=== PATIENT | female | born 1960 | race Caucasian/White ===

== ENCOUNTER 2017-10-06 18:42 | Emergency (ER) | END 2017-10-07 02:32 | disposition home or self-care (01) ==

== ENCOUNTER 2017-12-29 15:50 | Inpatient (IN) | END 2018-02-25 21:14 | DRG 870 ==

== ENCOUNTER 2018-05-27 22:50 | Inpatient (IN) | END 2018-06-03 18:20 | DRG 187 ==

== ENCOUNTER 2018-06-19 17:50 | Inpatient (IN) | payer OTHER ==
[~2018-06-19] VITALS: Ht 170.2 cm; Wt 116.1 kg
[~2018-06-19 17:50] MED LIST: CLOT15CR62 TOP; FURO-109 PO; FURO-110 PO; HYDR-4011 PO; LACT10SO5 PO; MONT10TA21 PO; PANT40TA3 PO; SACC250C PO; SERT100T PO; SPIR100T PO; ZOLP5TAB PO
[2018-06-19 20:30] VITALS: BP 158/70; PULSE 74; RESP 18
[2018-06-19] MEDS: HYDROCODONE/APAP (5/325) TAB PO PRN (21:55)
[2018-06-19] MEDS ORDERED: LORAZEPAM 0.5 MG TAB PO PRN (22:00)
[2018-06-19] MEDS ORDERED: ALBUTEROL HFA 8 GM INHALER INH PRN (22:00)
[2018-06-19] MEDS ORDERED: NACL 0.9% 3 ML SYG IV SCH (22:00)
[2018-06-19] MEDS ORDERED: ACETAMINOPHEN 325 MG TAB PO PRN (22:00)
[2018-06-19] MEDS: LACTULOSE 30ML CUP PO SCH ×2 (22:00→22:46)
[2018-06-19] MEDS ORDERED: ALBUTEROL/IPRATROPIUM (NEB) 3 ML AMP HHN PRN (22:00)
[2018-06-19] MEDS ORDERED: ONDANSETRON 4 MG INJ IV PRN (22:00)
[2018-06-19] MEDS: ZOLPIDEM 5 MG TAB PO PRN (22:46)
[2018-06-19 23:17] VITALS: Ht 170.2 cm; Wt 116.1 kg
[2018-06-20] VITALS (10 sets, daily range): BP systolic 112–150; BP diastolic 59–83; PULSE 75–85; RESP 18
[2018-06-20] MEDS ORDERED: DEXTROSE 50% 50 ML SYRINGE IV PRN ×2 (02:30)
[2018-06-20] MEDS ORDERED: GLUCOSE GEL 15 GRAM TUBE BUCCAL PRN (02:30)
[2018-06-20] MEDS ORDERED: GLUCAGON 1 MG INJ IM PRN (02:30)
[2018-06-20] MEDS ORDERED: GLUCOSE GEL 15 GRAM TUBE PO PRN ×2 (02:30)
--- NOTE | 2018-06-20 06:16 | HP ---
Date/Time of Note Date/Time of Note DATE: 06/20/18 TIME: 06:06 Assessment/Plan VTE Prophylaxis Pharmacological prophylaxis: heparin Lines/Catheters [facility] Peripheral IV Urinary Cath still in place: No Assessment/Plan Assessment/Plan 1. Shortness of breath, most likely secondary to chronic right-sided pleural effusion, with likely underlying infection -Recent CT here 2 weeks ago showed chest CT shows moderate loculated right pleural effusion with thin enhancement of the pleural lining is concerning for a fibropurulent effusion or empyema from infection as well as consolidation. As a result patient had a thoracentesis with removal of about half a liter of pleural fluid. -Plan is to repeat the chest CT for comparison and then will decide about repeating a thoracentesis -Will be placed on antibiotics -Supplemental oxygen and as needed bronchodilators -Pulmonary consult 2. Liver cirrhosis, with sequela of splenomegaly and portal hypertension -Patient with a history of alcohol abuse, hepatitis C and fatty liver 3. Type 2 diabetes: Insulin while in-house 4. Hypertension: Continue meds. Adjust as needed 5. History of asthma -Supplemental oxygen, with as needed bronchodilators and steroid 6. Possible SUMIT -As needed PPV 7. Morbid obesity: Will discuss about the importance of weight reduction when patient is more awake 8. Mild pancytopenia, secondary to liver cirrhosis -Monitor closely Results 24hrs Laboratory Tests Test 06/19/18 22:55 Bedside Glucose 172 HPI/ROS Admit Date/Time Admit Date/Time Jun 19, 2018 at 19:49 Hx of Present Illness This is a 58-year-old morbidly obese female with a history of asthma, type 2 diabetes, hypertension, hep C, EtOH, fatty liver, cirrhosis, chronic right-sided pleural effusion who initially presented on outside hospital complaining of shortness of breath, generalized weakness and cough. Patient is currently lethargic/sleepy and as such not much information was obtained from the patient except confirming her symptoms. She was admitted here 2 weeks ago with similar symptoms. At that time, chest CT shows moderate loculated right pleural effusion with thin enhancement of the pleural lining is concerning for a fibropurulent effusion or empyema from infection as well as consolidations. She underwent thoracentesis with removal of almost half a liter of fluid. At the outside facility chest x-ray was done which shows right-sided pleural effusion and right lower lobe infiltrate. She was transferred to [facility] for insurance reasons. She had an initial blood pressure of 189/90. Lab shows a WBC of 3.4, hemoglobin 11.3, platelets 76, sodium 132, glucose 319 and a lipase of 86, which is considered abnormal. PMH/Family/Social Past Medical History Medical History: other (See HPI) Medications Current Medications IV Flush (NS 3 ml) 3 ml PER PROTOCOL IV ; Start 06/19/18 at 22:00 Lorazepam (Ativan) 0.5 mg Q8H PRN PO ANXIETY; Start 06/19/18 at 22:00 Ondansetron HCl (Zofran Inj) 4 mg Q6H PRN IV NAUSEA AND/OR VOMITING; Start 06/19/18 at 22:00 Acetaminophen (Tylenol Tab) 650 mg Q6H PRN PO PAIN LEVEL 1-3 OR FEVER; Start 06/19/18 at 22:00 Albuterol/ Ipratropium (Duoneb) 3 ml Q2H RESP THERAPY PRN HHN SHORTNESS OF BREATH; Start 06/19/18 at 22:00 Furosemide (Lasix) 40 mg DAILY PO ; Start 06/20/18 at 09:00 Acetaminophen/ Hydrocodone Bitart ([place] (5/325)) 1 tab Q6H PRN PO PAIN LEVEL 1-10 Last administered on 06/19/18at 21:55; Admin Dose 1 TAB; Start 06/19/18 at 22:00 Lactulose (Enulose) 10 gm BID PO ; Start 06/19/18 at 22:00 Montelukast Sodium (Singulair) 10 mg QHS PO ; Start 06/20/18 at 21:00 Pantoprazole (Protonix Tab) 40 mg DAILY@0600 PO ; Start 06/20/18 at 06:00 Saccharomyces Boulardii (Florastor) 250 mg DAILY PO ; Start 06/20/18 at 09:00 Sertraline HCl (Zoloft) 100 mg DAILY PO ; Start 06/20/18 at 09:00 Spironolactone (Aldactone) 100 mg DAILY PO ; Start 06/20/18 at 09:00 Zolpidem Tartrate (Ambien) 5 mg QHS PRN PO INSOMNIA Last administered on 06/19/18 at 22:46; Admin Dose 5 MG; Start 06/19/18 at 22:00 Albuterol (Ventolin Hfa) 2 puff Q6H RESP THERAPY PRN INH WHEEZING; Start 06/19 at 22:00 Fluticasone/ Vilanterol (Breo Ellipta 200-25 Mcg Inh) 1 inh DAILY INH ; Start 06/20/18 at 09:00 Hydroxyzine HCl (Atarax) 10 mg Q6H PRN PO ITCHING; Start 06/19/18 at 22:30 Magnesium Oxide (Mag-Ox 400) 400 mg BID PO ; Start 06/20/18 at 09:00 Nicotine (Nicoderm 14 Mg/ 24hr) 1 patch DAILY TRANSDERM ; Start 06/20/18 at 09:00 Diagnostic Test (Pha) (Accu-Chek) 1 ea 02 XX ; Start 06/21/18 at 02:00 Insulin Aspart (Novolog Insulin Pen) NOVOLOG *MILD* ALGORITHM WITH MEALS BEDTIME SC ; Start 06/20/18 at 07:55 Miscellaneous Information 1 ea NOTE XX ; Start 06/20/18 at 02:30 Glucose (Glutose) 15 gm Q15M PRN PO DECREASED GLUCOSE; Start 06/20/18 at 02:30 Glucose (Glutose) 22.5 gm Q15M PRN PO DECREASED GLUCOSE; Start 06/20/18 at 02:30 Dextrose (D50w Syringe) 25 ml Q15M PRN IV DECREASED GLUCOSE; Start 06/20/18 at 02:30 Dextrose (D50w Syringe) 50 ml Q15M PRN IV DECREASED GLUCOSE; Start 06/20/18 at 02:30 Glucagon (Glucagen) 1 mg Q15M PRN IM DECREASED GLUCOSE; Start 06/20/18 at 02:30 Glucose (Glutose) 15 gm Q15M PRN BUCCAL DECREASED GLUCOSE; Start 06/20/18 at 02:30 Coded Allergies: vancomycin (Verified Allergy, Intermediate, 05/27/18) PER REPORT ibuprofen (Verified Adverse Reaction, Mild, SICK TO HER STOMACH, 05/27/18) Past Surgical History Past Surgical Hx: other (See HPI) Family History Significant Family History: no pertinent family hx Social History Alcohol Use: other (History of alcohol abuse) Smoking Status: Former smoker Drug Use: other (Unknown) Exam/Review of Systems Vital Signs Vitals Vital Signs Date Temp Pulse Resp B/P (MAP) Pulse Ox O2 O2 Flow FiO2 Time Delivery Rate 06/20/18 80 04:00 06/20/18 98.3 18 124/65 94 04:00 (84) Intake and Output 06/19/18 06/19/18 06/20/18 1515:00 23:00 07:00 IntakeIntake Total 118 ml 236 ml BalanceBalance 118 ml 236 ml Exam Constitutional: other (Sleepy/lethargic, somehow arousable and answering questions.) Head: normocephalic, atraumatic Eyes: PERRL Respiratory: diminished breath sounds Cardiovascular: regular rate and rhythm, nl pulses Gastrointestinal: soft, other (Obese) Extremities: normal pulses KALYAN MERRILL MD Jun 20, 2018 06:16
[2018-06-20] MEDS: PANTOPRAZOLE (EC) 40 MG TAB PO SCH (06:18)
[2018-06-20] MEDS: INSULIN ASPART [NOVOLOG] 3 ML PEN SC SCH ×4 (08:07→21:37)
[2018-06-20] MEDS: FLUTICASONE/VILANTEROL 200-25 INH DEVICE INH SCH (08:44)
[2018-06-20] MEDS: SPIRONOLACTONE 50 MG TAB PO SCH (08:46)
[2018-06-20] MEDS: FUROSEMIDE 40 MG TAB PO SCH (08:46)
[2018-06-20] MEDS: SACCHAROMYCES BOULARDII 250 MG CAP PO SCH (08:46)
[2018-06-20] MEDS: MAGNESIUM OXIDE 400 MG TAB PO SCH ×2 (08:46→21:20)
[2018-06-20] MEDS: SERTRALINE 100 MG TAB PO SCH (08:46)
[2018-06-20] MEDS: NICOTINE (14 MG/24 HR) PATCH TRANSDERM SCH (08:47)
[2018-06-20] MEDS: LACTULOSE 30ML CUP PO SCH ×2 (08:49→21:20)
[2018-06-20] MEDS ORDERED: BUDESONIDE (NEB) 0.25 MG/2 ML AMP INH ONE (09:00)
--- NOTE | 2018-06-20 15:24 | PN ---
Date/Time of Note Date/Time of Note DATE: 06/20/18 TIME: 15:21 Assessment/Plan VTE Prophylaxis Risk score (from [facility])>0 risk: 2 SCD applied (from [facility]): Yes Pharmacological prophylaxis: NA/contraindicated Pharm contraindication: liver dx Lines/Catheters IV C[facility] Type (from [facility] [place] Urinary Cath still in place: No Assessment/Plan Hospital Course 1. Acute respiratory distress secondary to hepatic hydrothorax Thoracentesis Empiric antibiotics Continue diuretics Supplemental oxygen 2. Liver cirrhosis, with sequela of splenomegaly and portal hypertension Patient with a history of alcohol abuse, hepatitis C and fatty liver 3. Type 2 diabetes: Insulin while in-house 4. Hypertension Adjust as needed 5. History of asthma Supplemental oxygen, with as needed bronchodilators and steroid 6. Possible SUMIT As needed PPV 7. Morbid obesity Lifestyle changes 8. Mild pancytopenia, secondary to liver cirrhosis Monitor DC planning: Possible DC back to residential tomorrow Result Diagram: 06/20/18 0620 06/20/18 0620 Results 24hrs Laboratory Tests Test 06/19/18 22:55 06/20/18 06:20 06/20/18 07:53 06/20/18 11:45 Bedside Glucose 172 170 235 H White Blood Count 4.2 L Red Blood Count 3.71 L Hemoglobin 11.1 L Hematocrit 33.0 L Mean Corpuscular Volume 88.9 Mean Corpuscular 29.9 Hemoglobin Mean Corpuscular 33.6 Hemoglobin Concent Red Cell Distribution 15.6 H Width Platelet Count 64 #L Mean Platelet Volume 10.2 Immature Granulocytes % 1.200 H Neutrophils % 58.7 Lymphocytes % 28.1 Monocytes % 10.8 Eosinophils % 0.0 Basophils % 1.2 Nucleated Red Blood 0.0 Cells % Immature Granulocytes # 0.050 H Neutrophils # 2.5 Lymphocytes # 1.2 Monocytes # 0.5 Eosinophils # 0.0 Basophils # 0.1 Nucleated Red Blood 0.0 Cells # Sodium Level 137 Potassium Level 4.4 Chloride Level 106 Carbon Dioxide Level 29 Anion Gap 2 L Blood Urea Nitrogen 12 Creatinine 0.56 Est Glomerular Filtrat > 60 Rate mL/min Glucose Level 210 Calcium Level 8.8 Total Bilirubin 0.9 Direct Bilirubin 0.00 Indirect Bilirubin 0.9 Aspartate Amino 79 H Transf (AST/SGOT) Alanine 43 Aminotransferase (ALT/SG PT) Alkaline Phosphatase 164 H Total Protein 7.2 Albumin 2.3 L Globulin 4.90 H Albumin/Globulin Ratio 0.46 Test 06/20/18 12:13 Prothrombin Time 16.3 H Prothrombin Time Ratio 1.3 INR International 1.30 Normalized Ratio Activated 34.3 Partial Thromboplast Time Subjective 24 Hr Interval Summary Respiratory: shortness of breath Exam/Review of Systems Vital Signs Vitals Vital Signs Date Temp Pulse Resp B/P (MAP) Pulse Ox O2 O2 Flow FiO2 Time Delivery Rate 06/20/18 98.0 85 18 112/59 97 Room Air 15:04 (76) 06/20/18 2.0 08:22 Intake and Output 06/19/18 06/19/18 06/20/18 1515:00 23:00 07:00 IntakeIntake Total 118 ml 336 ml BalanceBalance 118 ml 336 ml Exam Constitutional: alert, oriented Respiratory: clear to auscultation Cardiovascular: regular rate and rhythm Gastrointestinal: soft; No distended Musculoskeletal: nl extremities to inspection Medications Medications Current Medications IV Flush (NS 3 ml) 3 ml PER PROTOCOL IV ; Start 06/19/18 at 22:00 Lorazepam (Ativan) 0.5 mg Q8H PRN PO ANXIETY; Start 06/19/18 at 22:00 Ondansetron HCl (Zofran Inj) 4 mg Q6H PRN IV NAUSEA AND/OR VOMITING; Start 06/19/18 at 22:00 Acetaminophen (Tylenol Tab) 650 mg Q6H PRN PO PAIN LEVEL 1-3 OR FEVER; Start 06/19/18 at 22:00 Albuterol/ Ipratropium (Duoneb) 3 ml Q2H RESP THERAPY PRN HHN SHORTNESS OF BREATH; Start 06/19/18 at 22:00 Furosemide (Lasix) 40 mg DAILY PO Last administered on 06/20/18at 08:46; Admin Dose 40 MG; Start 06/20/18 at 09:00 Acetaminophen/ Hydrocodone Bitart ([place] (5/325)) 1 tab Q6H PRN PO PAIN LEVEL 1-10 Last administered on 06/19/18at 21:55; Admin Dose 1 TAB; Start 06/19/18 at 22:00 Lactulose (Enulose) 10 gm BID PO ; Start 06/19/18 at 22:00 Montelukast Sodium (Singulair) 10 mg QHS PO ; Start 06/20/18 at 21:00 Pantoprazole (Protonix Tab) 40 mg DAILY@0600 PO Last administered on 06/20/18 06:18; Admin Dose 40 MG; Start 06/20/18 at 06:00 Saccharomyces Boulardii (Florastor) 250 mg DAILY PO Last administered on 06/20/18 08:46; Admin Dose 250 MG; Start 06/20/18 at 09:00 Sertraline HCl (Zoloft) 100 mg DAILY PO Last administered on 06/20/18 08:46; Admin Dose 100 MG; Start 06/20/18 at 09:00 Spironolactone (Aldactone) 100 mg DAILY PO Last administered on 06/20/18 08:46; Admin Dose 100 MG; Start 06/20/18 at 09:00 Zolpidem Tartrate (Ambien) 5 mg QHS PRN PO INSOMNIA Last administered on 06/19/18 22:46; Admin Dose 5 MG; Start 06/19/18 at 22:00 Albuterol (Ventolin Hfa) 2 puff Q6H RESP THERAPY PRN INH WHEEZING; Start 06/19/18 at 22:00 Fluticasone/ Vilanterol (Breo Ellipta 200-25 Mcg Inh) 1 inh DAILY INH Last administered on 06/20/18 08:44; Admin Dose 1 INH; Start 06/20/18 at 09:00 Hydroxyzine HCl (Atarax) 10 mg Q6H PRN PO ITCHING; Start 06/19/18 at 22:30 Magnesium Oxide (Mag-Ox 400) 400 mg BID PO Last administered on 06/20/18 08:46; Admin Dose 400 MG; Start 06/20/18 at 09:00 Nicotine (Nicoderm 14 Mg/ 24hr) 1 patch DAILY TRANSDERM Last administered on 06/20/18 08:47; Admin Dose 1 PATCH; Start 06/20/18 at 09:00 Diagnostic Test (Pha) (Accu-Chek) 1 ea 02 XX ; Start 06/21/18 at 02:00 Insulin Aspart (Novolog Insulin Pen) NOVOLOG *MILD* ALGORITHM WITH MEALS BEDTIME SC Last administered on 06/20/18 12:15; Admin Dose 3 UNIT; Start at 07:55 Miscellaneous Information 1 ea NOTE XX ; Start 06/20/18 at 02:30 Glucose (Glutose) 15 gm Q15M PRN PO DECREASED GLUCOSE; Start 06/20/18 at 02:30 Glucose (Glutose) 22.5 gm Q15M PRN PO DECREASED GLUCOSE; Start 06/20/18 at 02:30 Dextrose (D50w Syringe) 25 ml Q15M PRN IV DECREASED GLUCOSE; Start 06/20/18 at 02:30 Dextrose (D50w Syringe) 50 ml Q15M PRN IV DECREASED GLUCOSE; Start 06/20/18 at 02:30 Glucagon (Glucagen) 1 mg Q15M PRN IM DECREASED GLUCOSE; Start 06/20/18 at 02:30 Glucose (Glutose) 15 gm Q15M PRN BUCCAL DECREASED GLUCOSE; Start 06/20/18 at 02:30 LIZ ALFRED Jun 20, 2018 15:24
[2018-06-20] MEDS ORDERED: MONTELUKAST 10 MG TAB PO SCH (21:00)
[2018-06-20] MEDS: hydrOXYzine HCL 10 MG TAB PO PRN (21:30)
[2018-06-20] MEDS: ZOLPIDEM 5 MG TAB PO PRN (21:30)
[2018-06-21] VITALS (10 sets, daily range): BP systolic 110–126; BP diastolic 53–63; PULSE 74–83; RESP 14–18
[2018-06-21] MEDS ORDERED: ACCU-CHEK XX SCH (02:00)
[2018-06-21] MEDS: HYDROCODONE/APAP (5/325) TAB PO PRN (06:16)
[2018-06-21] MEDS: PANTOPRAZOLE (EC) 40 MG TAB PO SCH (06:16)
[2018-06-21] MEDS: LACTULOSE 30ML CUP PO SCH (09:00)
[2018-06-21] MEDS ORDERED: MAGN400T27 PO (09:22)
[2018-06-21] MEDS: SPIRONOLACTONE 50 MG TAB PO SCH (09:30)
[2018-06-21] MEDS: SACCHAROMYCES BOULARDII 250 MG CAP PO SCH (09:30)
[2018-06-21] MEDS: SERTRALINE 100 MG TAB PO SCH (09:30)
[2018-06-21] MEDS ORDERED: MAGNESIUM SULFATE 2 GM/50 ML 50 ML IVPB ONE (09:30)
[2018-06-21] MEDS: MAGNESIUM OXIDE 400 MG TAB PO SCH (09:30)
[2018-06-21] MEDS: NICOTINE (14 MG/24 HR) PATCH TRANSDERM SCH (09:30)
[2018-06-21] MEDS ORDERED: MAGNESIUM OXIDE 400 MG TAB PO ONE (09:30)
[2018-06-21] MEDS: FUROSEMIDE 40 MG TAB PO SCH (09:31)
[2018-06-21] MEDS: FLUTICASONE/VILANTEROL 200-25 INH DEVICE INH SCH (09:33)
--- NOTE | 2018-06-21 11:37 | DS ---
Date/Time of Note Date/Time of Note DATE: 06/21/18 TIME: 11:31 Discharge Summary Admission/Discharge Info Admit Date/Time Jun 19, 2018 at 19:49 Discharge Date/Time June 21, 2018 Discharge Diagnosis 1. Acute respiratory distress secondary to anasarca-resolved Ultrasound chest showed only minimal fluid in the right chest and hence was an insufficient amount for thoracentesis Status post empiric antibiotics, no indication for further antibiotics as there is no evidence of pneumonia Continue diuretics No indication for supplemental oxygen 2. Liver cirrhosis secondary to hepatitis C and alcohol abuse with sequela of splenomegaly and portal hypertension Patient with a history of alcohol abuse, hepatitis C and fatty liver Continue diuretics 3. Type 2 diabetes Continue home regimen 4. Hypertension Continue home regimen 5. History of asthma Continue home regimen 6. Pancytopenia secondary to cirrhosis-stable 7. Morbid obesity Lifestyle changes 8. Debility DC back to shelter Patient Condition: Good Hospital Course Patient is a 58-year-old female with a history of cirrhosis secondary to hep atitis C and alcohol abuse, recurrent hepatic hydrothorax status post thoracentesis during recent hospitalization, diabetes, hypertension, debility, obesity, asthma. Patient presents with recurrent respiratory distress thought to be secondary to hepatic hydrothorax. Patient was diuresed and anasarca did improve, ultrasound of the chest showed only minimal fluid and fluid amount was insufficient for a thoracentesis. Patient's respiratory distress resolved and patient no longer required supplemental O2. Patient had no evidence of pneumonia. Patient was stable for DC back to shelter, on the day of discharge patient's vitals, labs and physical exam are stable patient has no acute complaints and questions are answered. Home Meds Active Scripts Magnesium Oxide* (Mag-Oxide*) 400 Mg Tablet, 400 MG PO BID, #60 TAB Prov:LIZ ALFRED 06/21/18 Spironolactone* (Aldactone*) 100 Mg Tablet, 100 MG PO DAILY, #60 TAB Prov:LIZ ALFRED 06/03/18 Furosemide* (Lasix*) 40 Mg Tablet, 40 MG PO DAILY, #60 TAB Prov:ILZ ALFRED 06/03/18 Reported Medications Zolpidem Tartrate* (Ambien*) 5 Mg Tablet, 5 MG PO QHS PRN for INSOMNIA, #30 TAB From [facility] 05/28/18 Saccharomyces Boulardii* (Florastor*) 250 Mg Cap, 250 MG PO DAILY, CAP From [facility] 05/28/18 Lactulose* (Lactulose*) 10 Gm/15 Ml Solution, 10 GM PO BID, ML [facility] 05/28/18 Sertraline Hcl* (Zoloft*) 100 Mg Tablet, 100 MG PO DAILY, #30 TAB from [facility] 05/28/18 Pantoprazole* (Protonix*) 40 Mg Tablet.dr, 40 MG PO DAILY, TAB From [facility] 05/28/18 Betamethasone-Clotrimazole* (Lotrisone*) 15 Gm Cr, 1 APPLIC TOP BID for abd fold, bilateral groin, TUB from [facility] 05/28/18 Hydrocodone/Acetaminophen ([place] 5-325 Tablet) 1 Each Tablet, 1 EACH PO Q6 PRN for prn, TAB FROM [facility] 05/28/18 Montelukast Sodium* (Singulair*) 10 Mg Tablet, 10 MG PO QHS, #30 TAB 12/29/17 Discontinued Scripts Furosemide* (Lasix*) 20 Mg Tablet, 20 MG PO DAILY for 60 Days, #60 TAB Prov:JAZ PERLA MD 05/14/18 Follow-up Plan Follow-up with physicians at the long term facility Primary Care Provider Care Physician No Primary Time spent on discharge: > 30 minutes LIZ ALFRED Jun 21, 2018 11:37
[2018-06-21] MEDS: INSULIN ASPART [NOVOLOG] 3 ML PEN SC SCH ×3 (12:30→18:32)
[2018-06-21] MEDS ORDERED: MUPIROCIN 2% 22 GM OINT TOP SCH (14:00)
[2018-06-21] MEDS: hydrOXYzine HCL 10 MG TAB PO PRN (14:56)
[2018-06-22] MEDS ORDERED: MAGNESIUM OXIDE 400 MG TAB PO SCH (09:00)
[2018-07-26] MEDS ORDERED: GABA100C14 PO (17:05)
[2018-07-26] MEDS ORDERED: HYDR-4011 PO (19:04)
[2018-07-26] MEDS ORDERED: OMEP40CA6 PO (19:04)
[2018-07-28] MEDS ORDERED: MAGN400T27 PO (12:43)
[2018-07-28] MEDS ORDERED: SERT100T PO (12:43)
[2018-07-28] MEDS ORDERED: SPIR100T PO (12:43)
[2018-07-28] MEDS ORDERED: LACT10SO5 PO (12:43)
[2018-07-28] MEDS ORDERED: FURO-109 PO (12:43)
[2018-07-28] MEDS ORDERED: MONT10TA21 PO (12:43)
[2018-07-28] MEDS ORDERED: SACC250C PO (12:43)
[2018-07-28] MEDS ORDERED: PANT40TA3 PO (12:43)
== END 2018-06-21 18:51 | DRG 948 ==
LOC: 2NE 19:49 → 5EC 20:16 → TEL 06-20 02:45
PROVIDERS: ADMIT Internal Medicine; ATTEND Internal Medicine
DX: R60.1 Generalized edema (principal); K76.6 Portal hypertension; Z68.41 Body mass index [BMI] 40.0-44.9, adult; D61.818 Other pancytopenia; R16.1 Splenomegaly, not elsewhere classified; I10 Essential (primary) hypertension; J45.909 Unspecified asthma, uncomplicated; E66.01 Morbid (severe) obesity due to excess calories; B95.62 Methicillin resistant Staphylococcus aureus infection as the cause of diseases classified elsewhere; E11.9 Type 2 diabetes mellitus without complications; B18.2 Chronic viral hepatitis C; K76.0 Fatty (change of) liver, not elsewhere classified; K70.30 Alcoholic cirrhosis of liver without ascites; Z87.891 Personal history of nicotine dependence; R06.03 Acute respiratory distress
CPT/HCPCS: 71045; 76604; 80048; 80053; 82962; 83735; 85025; 85610; 85730; 87081; J1815; J3475

== ENCOUNTER 2018-07-30 16:39 | Emergency (ER) | payer OTHER ==
[~2018-07-30] VITALS: Ht 165.1 cm; Wt 118.2 kg
[~2018-07-30 16:39] MED LIST changes: -FURO-110 PO; +GABA100C14 PO; +MAGN400T27 PO; -ZOLP5TAB PO
[2018-07-30 16:42] VITALS: Ht 165.1 cm; Wt 118.2 kg
[2018-07-30] MEDS ORDERED: morphine 4 MG/ML VIAL IV STA (23:05)
[2018-07-30] MEDS ORDERED: ONDANSETRON 4 MG INJ IV STA (23:05)
[2018-07-30] MEDS ORDERED: morphine 4 MG/ML VIAL IM STA (23:34)
[2018-07-30] MEDS ORDERED: ONDANSETRON 4 MG INJ IM STA (23:34)
[2018-07-31] MEDS ORDERED: TRAM50TA2 PO (05:34)
[2018-07-31] MEDS ORDERED: ADMELOG SUBCUTANE (11:35)
--- NOTE | 2018-07-31 12:22 | EN ---
Date/Time of Note Date/Time of Note DATE: 07/31/18 TIME: 12:15 ER Progress Note This is a 58-year-old female that had presented to the emergency department and evaluated by the ER physician Dr. Bustillo. The patient had subsequently been discharged after a workup for epigastric pain. The patient had an ultrasound that was performed and showed cholelithiasis without cholecystitis. This had been ordered and reviewed by the previous ER physician as well as myself. Dr. Bustillo is also written a prescription for tramadol for the patient for analgesic control.. However at the time of discharge the patient stated that she did not have a place to live and she is currently homeless. Therefore at this time a social work consult was obtained. Her social media designer kindly came to the bedside and evaluated the patient. She had a significant workup and hospitalization subsequently discharged July 28, 2018, 3 days prior to arrival. We are currently working on placement to send the patient to a recuperative care facility. The patient has home medications that she was discharged with on July 28, 2018. The patient has her prescriptions in hand which include [place], gabapentin, montelukast, Protonix, Zoloft, lactulose, Florastor, Lasix, Spironolactone and magnesium oxide. I have currently reviewed the prescriptions that were written by the discharge physician Dr. Miranda. She has not filled these prescriptions. The patient also indicates that she has a history of diabetes. There did not appear to be a prescription for insulin. The patient's hemoglobin A1c upon review of her ancillary laboratory work from previous admission was elevated at 8.1%. When I spoke with the patient at bedside the patient stated she does not know the antidiabetic medication she takes. The patient did state that she was previously at [facility] before this hospitalization and was taking insulin. Again the patient has no recollection of the dose of the medication or the type of insulin that she took. Therefore at this time I felt the patient required a diabetic counselor to come to bedside and evaluate the best choice of antidiabetic medication for this patient prior to discharge. The child was seen by the hospice educator. She made documentation that the patient was very somnolent. However she was able to speak with the patient and did state that she will follow-up with the patient tomorrow at their facility to discuss diet management. Therefore the patient will have very good outpatient follow-up with free diabetic education classes that have been offered to her. RAFAEL ALONZO MD Jul 31, 2018 12:22
--- NOTE | 2018-07-31 14:55 | QN ---
Documentation Comment This patient was signed out to me at [address] Martinez pending discharge planning with social work and consultation with the diabetes coordinator for outpatient prescription recommendations. The patient will be provided a prescription for Januvia 100 mg daily Jardiance 10 mg daily in accordance with the diabetic counselor's recommendations. The patient understands the need to follow-up in the next 1-3 days with a primary care physician for close erin gement of her diabetes. Please see Dr. Martinez's note for further detail of the patient's ED course. Please see the social work note for details on discharge planning. BENNY KNIGHT MD Jul 31, 2018 14:55
[2018-07-31] MEDS ORDERED: EMPA10TA PO (14:57)
[2018-07-31] MEDS ORDERED: SITA100T11 PO (14:57)
[2018-07-31 15:06] VITALS: BP 148/88; PULSE 77; RESP 18
== END 2018-07-31 14:08 | disposition home or self-care (01) ==
LOC: E/R 16:39
DX: K80.20 Calculus of gallbladder without cholecystitis without obstruction (principal); E11.9 Type 2 diabetes mellitus without complications
CPT/HCPCS: 36415; 71045; 76705; 80053; 83690; 84484; 85025; 85610; 85730; 93005; 96372; J2270; J2405; Z7502

== ENCOUNTER 2018-08-20 22:15 | Inpatient (IN) | payer OTHER ==
[~2018-08-20] VITALS: Ht 170.2 cm; Wt 124.9 kg
[~2018-08-20 22:15] MED LIST changes: +ADMELOG SUBCUTANE; -CLOT15CR62 TOP; +EMPA10TA PO; -LACT10SO5 PO; -SACC250C PO; +SITA100T11 PO
[2018-08-20] MEDS ORDERED: morphine 4 MG/ML VIAL IV STA (22:38)
[2018-08-20] MEDS ORDERED: SOD CHLORIDE 0.9% 500 ML IV STA (22:38)
[2018-08-20] MEDS ORDERED: ONDANSETRON 4 MG INJ IV STA (22:38)
[2018-08-20] MEDS ORDERED: PIPER-TAZO 3.375 GM IV (PMX) 100 ML IVPB STA (22:38)
[2018-08-21] MEDS ORDERED: ACETAMINOPHEN 325 MG TAB PO PRN (01:30)
[2018-08-21] MEDS ORDERED: NACL 0.9% 3 ML SYG IV SCH (01:30)
[2018-08-21] MEDS ORDERED: DOCUSATE SODIUM 100 MG CAP PO PRN (01:30)
[2018-08-21] MEDS ORDERED: ONDANSETRON 4 MG INJ IV PRN (01:30)
[2018-08-21] MEDS ORDERED: BISACODYL (EC) 5 MG TAB PO PRN (01:30)
[2018-08-21 02:00] VITALS: Ht 170.2 cm; Wt 124.9 kg
--- NOTE | 2018-08-21 02:26 | ERD ---
ER Documentation Chief Complaint Chief Complaint fell when mis-stepped out of vehicle, Rt ankle pain, chronic low back pain HPI This is a 58-year-old female who complains of ankle pain after miss stepping out of her vehicle. She also says that her ankles been swollen along with up to her mid calf for the past few days. No fevers no chills. No nausea no vomiting. No other current complaints. Pain mild to moderate in intensity with no exacerbating or alleviating factors. ROS All systems reviewed and are negative except as per history of present illness. Medications Home Meds Active Scripts Empagliflozin (Jardiance) 10 Mg Tablet, 10 MG PO DAILY for 15 Days, TAB Prov:BENNY KNIGHT MD 07/31/18 Sitagliptin* (Januvia*) 100 Mg Tablet, 100 MG PO DAILY, #15 TAB Prov:BENNY KNIGHT MD 07/31/18 Magnesium Oxide* (Mag-Oxide*) 400 Mg Tablet, 400 MG PO BID, #60 TAB Prov:JAMARI ALVARADO S. 07/28/18 Spironolactone* (Aldactone*) 100 Mg Tablet, 100 MG PO DAILY, #60 TAB 3 Refills Prov:JAMARI ALVARADO S. 07/28/18 Furosemide* (Lasix*) 40 Mg Tablet, 40 MG PO DAILY, #30 TAB 3 Refills Prov:JAMARI ALVARADO S. 07/28/18 Sertraline Hcl* (Zoloft*) 100 Mg Tablet, 100 MG PO DAILY, #30 TAB 1 Refill from [facility] Prov:JAMARI ALVARADO S. 07/28/18 Pantoprazole* (Protonix*) 40 Mg Tablet.dr, 40 MG PO DAILY, #30 TAB 1 Refill From [facility] Prov:JAMARI ALVARADO S. 07/28/18 Montelukast Sodium* (Singulair*) 10 Mg Tablet, 10 MG PO QHS, #30 TAB 3 Refills Prov:JAMARI ALVARADO S. 07/28/18 Reported Medications [Admelog] No Conflict Check, 1-15 UNITS SUBCUTANE AC MEALS 07/31/18 Gabapentin* (Gabapentin*) 100 Mg Capsule, 100 MG PO DAILY, #90 CAP 07/26/18 Hydrocodone/Acetaminophen ([place] 5-325 Tablet) 1 Each Tablet, 1 EACH PO Q6 PRN for prn, TAB FROM [facility] 05/28/18 Allergies Allergies: Coded Allergies: vancomycin (Unverified Allergy, Intermediate, 07/31/18) PER REPORT ibuprofen (Unverified Adverse Reaction, Mild, SICK TO HER STOMACH, 07/31/18) PMhx/Soc History of Surgery: Yes (Hysterectomy 1981, L ankle surgery 1989) Anesthesia Reaction: No Hx Neurological Disorder: No Hx Respiratory Disorders: Yes (COPD, asthma) Hx Cardiac Disorders: Yes (CHF, HTN) Hx Psychiatric Problems: Yes (Depression) Hx Miscellaneous Medical Probl: Yes (cirrhosis, diastolic CHF, depression, R foot drop ) Hx Alcohol Use: Yes Hx Substance Use: Yes (meth, marijuaa) Hx Tobacco Use: Yes (2017) Smoking Status: Current every day smoker Physical Exam Vitals Vital Signs Date Temp Pulse Resp B/P (MAP) Pulse Ox O2 O2 Flow FiO2 Time Delivery Rate 08/20/18 98.0 97 16 139/74 96 Room Air 23:40 (95) 08/20/18 98.0 96 22 143/125 98 22:33 (131) Physical Exam Const: No acute distress Head: Atraumatic Eyes: Normal Conjunctiva ENT: Normal External Ears, Nose and Mouth. Neck: Full range of motion. No meningismus. Resp: Clear to auscultation bilaterally Cardio: Regular rate and rhythm, no murmurs Abd: Soft, non tender, non distended. Normal bowel sounds Skin: Erythema and induration noted to the midcalf bilaterally. No fluctuance noted. Normal pulses. Back: No midline or flank tenderness Ext: No cyanosis, or edema Neur: Awake and alert Psych: Normal Mood and Affect Result Diagram: 08/20/18 2313 08/20/18 2313 Results 24 hrs Laboratory Tests Test 08/20/18 23:13 White Blood Count 5.5 10^3/ul Red Blood Count 4.27 10^6/ul Hemoglobin 12.1 g/dl Hematocrit 38.1 % Mean Corpuscular Volume 89.2 fl Mean Corpuscular Hemoglobin 28.3 pg Mean Corpuscular Hemoglobin Concent 31.8 g/dl Red Cell Distribution Width 16.3 % Platelet Count 91 10^3/UL Mean Platelet Volume 10.3 fl Immature Granulocytes % 0.900 % Neutrophils % 68.5 % Lymphocytes % 19.3 % Monocytes % 10.2 % Eosinophils % 0.0 % Basophils % 1.1 % Nucleated Red Blood Cells % 0.0 /100WBC Immature Granulocytes # 0.050 10^3/ul Neutrophils # 3.8 10^3/ul Lymphocytes # 1.1 10^3/ul Monocytes # 0.6 10^3/ul Eosinophils # 0.0 10^3/ul Basophils # 0.1 10^3/ul Nucleated Red Blood Cells # 0.0 10^3/ul Prothrombin Time 15.2 Sec Prothrombin Time Ratio 1.2 INR International Normalized Ratio 1.19 Activated Partial Thromboplast Time 31.7 Sec Sodium Level 138 mmol/L Potassium Level 3.9 mmol/L Chloride Level 105 mmol/L Carbon Dioxide Level 25 mmol/L Anion Gap 8 Blood Urea Nitrogen 9 mg/dl Creatinine 0.55 mg/dl Est Glomerular Filtrat Rate mL/min > 60 mL/min Glucose Level 189 mg/dl Calcium Level 8.7 mg/dl Total Bilirubin 2.2 mg/dl Direct Bilirubin 0.00 mg/dl Indirect Bilirubin 2.2 mg/dl Aspartate Amino Transf (AST/SGOT) 80 IU/L Alanine Aminotransferase (ALT/SGPT) 32 IU/L Alkaline Phosphatase 189 IU/L Total Protein 8.6 g/dl Albumin 2.9 g/dl Globulin 5.70 g/dl Albumin/Globulin Ratio 0.50 Lipase 143 U/L Current Medications Medications Dose Sig/Shikha Start Time Status Last (Trade) Ordered Route PRN Stop Time Admin Dose Reason Admin Sodium 500 ml @ Q1H STAT 08/20/18 DC 08/20/18 Chloride 500 mls/hr IV 22:38 08/20/18 23:28 23:37 Morphine 4 mg ONCE STAT 08/20/18 DC 08/20/18 Sulfate IV 22:38 08/20/18 23:28 (morphine) 22:39 Ondansetron 4 mg ONCE STAT 08/20/18 DC 08/20/18 HCl (Zofran IV 22:38 08/20/18 23:28 Inj) 22:39 Piperacillin 100 ml @ ONCE STAT 08/20/18 DC 08/20/18 Sod/ 200 mls/hr IVPB 22:38 08/20/18 23:28 Tazobactam 23:07 Sod Procedures/MDM Medical decision makin-year female who comes in with essentially bilateral lower extremity cellulitis. Started on antibiotics. Cultures drawn first. Patient to be admitted to [facility] to Dr. García is on-call. X-ray Ankle 3V Interpreted by me: Bones: [No fracture] Joints: No dislocation Departure Diagnosis: Primary Impression: Ankle pain Chronicity: unspecified Laterality: unspecified laterality Qualified Codes: M25.579 - Pain in unspecified ankle and joints of unspecified foot Additional Impression: Cellulitis Site of cellulitis: unspecified site Qualified Codes: L03.90 - Cellulitis, unspecified Condition: Stable KALYAN HUTCHINS Aug 21, 2018 02:26
[2018-08-21] MEDS ORDERED: FUROSEMIDE 40 MG INJ IV ONE ×2 (03:30→04:00)
[2018-08-21] MEDS ORDERED: FUROSEMIDE 40 MG INJ IM ONE (03:30)
--- NOTE | 2018-08-21 03:33 | HP ---
Date/Time of Note Date/Time of Note DATE: 08/21/18 TIME: 03:33 Assessment/Plan VTE Prophylaxis SCD applied (from Nsg): Yes Pharmacological prophylaxis: NA/contraindicated Pharm contraindication: low risk/ambulating Lines/Catheters IV Catheter Type (from Nrsg): Saline Lock Assessment/Plan Hospital Course This is a 58-year-old female being admitted to the [facility] floor for: #1 acute chronic encephalopathy: Likely multifactorial secondary to underlying urinary tract infection, possible hyperammonemia, versus other. Will check a CT scan of the head without contrast to rule out any acute intracranial pathology. Will check an ammonia level. Ceftriaxone 1 g every 24 hours underlying urinary tract infection. Lactulose #2 urinary tract infection: Ceftriaxone 1 g every 24 hours, will check a urine culture. #3 abnormal chest x-ray: Patient has a history of pleural effusion/empyema. Will obtain a CT scan of the chest to further evaluate. #4 Dehydration: Secondary possibly to diuretics, underlying urinary tract infection, poor p.o. intake. While patient does appear to be volume overloaded she does appear to be intravascularly depleted. Albumin 25% x2. #5 cirrhosis: Secondary to hepatitis C and alcohol. Will check an ammonia level. Resume home blood pressure medications and diuretics when clinically indicated. Lactulose #6 diabetes mellitus: We will check hemoglobin A1c, will hold home oral medications. Mild insulin sliding scale. #7. Right ankle pain: X-ray is negative for any acute fractures. There is some soft tissue swelling. However given that the patient is afebrile and normal white blood cell count I do not suspect any underlying pneumonia. Will treat with Lasix when indicated for swelling. #8 Homelessness: Consult social work. #9 DVT GI prophylaxis: SCDs, no GI prophylaxis indicated Further treatment strategy will be implemented as per the clinical course Result Diagram: 08/20/18231208/20/183 Results 24hrs Laboratory Tests Test 08/20/18 23:13 White Blood Count 5.5 # Red Blood Count 4.27 Hemoglobin 12.1 Hematocrit 38.1 Mean Corpuscular Volume 89.2 Mean Corpuscular Hemoglobin 28.3 L Mean Corpuscular Hemoglobin Concent 31.8 L Red Cell Distribution Width 16.3 H Platelet Count 91 L Mean Platelet Volume 10.3 Immature Granulocytes % 0.900 H Neutrophils % 68.5 Lymphocytes % 19.3 Monocytes % 10.2 Eosinophils % 0.0 Basophils % 1.1 Nucleated Red Blood Cells % 0.0 Immature Granulocytes # 0.050 H Neutrophils # 3.8 Lymphocytes # 1.1 Monocytes # 0.6 Eosinophils # 0.0 Basophils # 0.1 Nucleated Red Blood Cells # 0.0 Prothrombin Time 15.2 H Prothrombin Time Ratio 1.2 INR International Normalized Ratio 1.19 Activated Partial Thromboplast Time 31.7 Sodium Level 138 Potassium Level 3.9 Chloride Level 105 Carbon Dioxide Level 25 Anion Gap 8 Blood Urea Nitrogen 9 Creatinine 0.55 Est Glomerular Filtrat Rate mL/min > 60 Glucose Level 189 Calcium Level 8.7 Total Bilirubin 2.2 H Direct Bilirubin 0.00 Indirect Bilirubin 2.2 H Aspartate Amino Transf (AST/SGOT) 80 H Alanine Aminotransferase (ALT/SGPT) 32 Alkaline Phosphatase 189 H Total Protein 8.6 H Albumin 2.9 L Globulin 5.70 H Albumin/Globulin Ratio 0.50 Lipase 143 HPI/ROS Admit Date/Time Admit Date/Time Aug 21, 2018 at 00:59 Hx of Present Illness Chief complaint: Right ankle pain Patient is a poor historian and she does appear to be lethargic. History was obtained from the ED physician as well as the nursing documentation. Patient was brought in by EMS after she was found on the sidewalk where she was sitting on a walker next to her own vehicle after she had fell coming out of the vehicle . Patient was not noted to be having any episodes of loss of consciousness, patient was not complaining of any neck pain or any back pain but she was complaining of right ankle pain. She reported to EMS that she fell 3 hours prior to that and she continued to set aside because no one was caring for her. Patient apparently is homeless and lives in her van. She also has a history of chronic lower back pain. Patient in the ER was examined and was diagnosed with cellulitis of the right lower extremity. Upon my examination the patient at the bedside. She did have some tenderness to palpation of the ankle however ankle x-ray did not show any acute fractures. Patient was noted to have swelling of the bilateral lower extremities and mild redness however did not look like a full-blown cellulitis. Patient in the emergency department was not noted to have a fever and had a normal white blood cell count. She does appear slightly confused on examination, and she does appear clinically dry. She reports poor appetite Allergies: Ibuprofen, vancomycin Medications: See MAR FOREIGN Subjective hx not possible: other (Patient confused and slightly altered unable to obtain proper history) PMH/Family/Social Past Medical History Cirrhosis from Hep C and alcohol diastolic CHF morbid obesity major depression Diabetes Medications Current Medications IV Flush (NS 3 ml) 3 ml PER PROTOCOL IV ; Start 08/21/18 at 01:30 Ondansetron HCl (Zofran Inj) 4 mg Q6H PRN IV NAUSEA/VOMITING; Start 08/21/18 at 01:30 Acetaminophen (Tylenol Tab) 650 mg Q6H PRN PO .PAIN 1-3 OR TEMP; Start 08/21/18 at 01:30 Acetaminophen/ Hydrocodone Bitart ([place] (5/325)) 1 tab Q6H PRN PO .MOD PAIN 4- 6; Start 08/21/18 at 01:30 Docusate Sodium (Colace) 100 mg Q12H PRN PO .CONSTIPATION; Start 08/21/18 at 01:30 Bisacodyl (Dulcolax) 5 mg DAILY PRN PO .CONSTIPATION; Start 08/21/18 at 01:30 Coded Allergies: vancomycin (Unverified Allergy, Intermediate, 07/31/18) PER REPORT ibuprofen (Unverified Adverse Reaction, Mild, SICK TO HER STOMACH, 07/31/18) Past Surgical History Ovarian cyst removal surgery. Past Surgical Hx: other Family History Significant Family History: no pertinent family hx Social History Smoking Status: Current every day smoker Exam/Review of Systems Vital Signs Vitals Vital Signs Date Temp Pulse Resp B/P (MAP) Pulse Ox O2 O2 Flow FiO2 Time Delivery Rate 08/20/18 98.0 97 16 139/74 96 Room Air 23:40 (95) Exam Exam General: Patient is currently lying in bed she does appear to be altered, she is arousable but lethargic. Mucous membranes do appear dry. She does report right ankle pain. HEENT: Atraumatic, normocephalic. The pupils are equal, round and reactive. Extraocular motor are intact Neck: Supple with full range of motion. No rigidity or meningismus Chest: Nontender Lungs: Clear to auscultation bilaterally no crackles rales or wheezing Heart: Normal S1-S2, Regular rhythm and rate. No murmur, S3, or S4 Abdomen: Morbidly obese, soft , nontender, nondistended , bowel sounds are present. No guarding no rebound tenderness , No masses or organomegaly. No costovertebral temporal angle mass Extremities: Right ankle pain to palpation, bilateral lower extremities 1+ pitting edema, no overt signs of cellulitis noted Neurologic: Altered, awake and arousable but does appear to have limitations in regards to given clinical history. Additional Comments PROCEDURE: Right tibia and fibula x-ray CLINICAL INDICATION: Right-sided ankle pain TECHNIQUE: AP, lateral views of the tibia and fibula were obtained. COMPARISON: None FINDINGS: There is soft tissue swelling. There is no definite evidence for acute fracture or dislocation. There is a large plantar calcaneal spur. IMPRESSION: Soft tissue swelling. No definite evidence for acute fracture or dislocation. RPTAT: HAP Admit-r Hemanth, Physician Date Time Electronically viewed and signed by Julianne Saxena Physician on 08/21/2018 02:14 AP/ CC: KALYAN HUTCHINS [id number] PROCEDURE: XR Chest. CLINICAL INDICATION: Low oxygen saturation TECHNIQUE: AP Portable chest. COMPARISON: CR CHEST 10/05/2016; CR CHEST 10/04/2016; CR CHEST 10/03/2016 FINDINGS: The cardiomediastinal silhouette is enlarged, partially obscured. There is mild congestion. Right-sided volume loss, pleural effusion and lower lung opacity are unchanged. No pneumothorax is identified. The osseous structures are intact. IMPRESSION: Unchanged right-sided volume loss, pleural effusion and basilar consolidation atelectasis. [facility] Kathryn Monroy Physician Date Time Electronically viewed and signed by Physician Parveen on 08/21/2018 05:05 CS/ CC: MAUREEN SHANKAR [phone] PROCEDURE: CT Brain without contrast. CLINICAL INDICATION: Trauma TECHNIQUE: CT scan of the brain was performed on a multidetector high- resolution CT scan. Axial imaging was obtained of the brain without contrast administration. Coronal and sagittal reformatted images were obtained from the axial source images. Standard CT scan of the head without contrast protocols were performed. The total exam CTDI equals 48.06 mGy and the total exam DLP equals 823.09 mGy- cm. One or more of the following dose reduction techniques were used: - Automated exposure control. - Adjustment of the mA and/or kV according to patient size. Use of iterative reconstruction technique. Dicom images are available COMPARISON: None. FINDINGS: The ventricular system and peripheral CSF spaces are unremarkable. No evidence of intracranial masses hemorrhages or midline shift. Mild periventricular deep white matter changes that is nonspecific and consistent with chronic microvascular ischemic disease. The caldera-white matter differentiation is unremarkable. The bones of the calvarium are intact. Visualized paranasal sinuses and mastoids are unremarkable. Atherosclerotic vascular disease of the cavernous carotid arteries. IMPRESSION: 1. No evidence of intracranial masses hemorrhages or midline shift. 2. Mild nonspecific chronic microvascular ischemic disease. RPTAT:AAJJ Physician Jose Date Time Electronically viewed and signed by Physician Jose on 08/21/2018 08:38 BM/ CC: MAUREEN SHANKAR [phone] MAUREEN SHANKAR Aug 21, 2018 03:33
[2018-08-21 08:00] VITALS: BP 116/56; PULSE 88; RESP 20
[2018-08-21] MEDS ORDERED: POTASSIUM CHLORIDE (SR) 10 MEQ TAB PO ONE (09:30)
[2018-08-21] MEDS: CEFTRIAXONE 1 GM/50 ML (PMX) 50 ML IVPB SCH (09:31)
[2018-08-21] MEDS: PANTOPRAZOLE (EC) 40 MG TAB PO SCH (09:32)
[2018-08-21] MEDS: SPIRONOLACTONE 50 MG TAB PO SCH (09:34)
[2018-08-21] MEDS ORDERED: IOHEXOL 100 ML ONE (10:08)
[2018-08-21] MEDS ORDERED: SOD CHLORIDE 0.9% 100 ML ONE (10:08)
[2018-08-21] MEDS ORDERED: IOHEXOL 350MG/ML 50 ML BTL ONE (10:29)
[2018-08-21] MEDS: ALBUMIN HUMAN 25% 100 ML IV SCH ×2 (11:44→13:37)
[2018-08-21] MEDS: INSULIN ASPART [NOVOLOG] 3 ML PEN SC SCH ×3 (12:13→20:54)
--- NOTE | 2018-08-21 12:35 | PN ---
Date/Time of Note Date/Time of Note DATE: 08/21/18 TIME: 12:28 Assessment/Plan VTE Prophylaxis Risk score (from Nsg)>0 risk: 5 SCD applied (from Ns): Yes Pharmacological prophylaxis: NA/contraindicated Pharm contraindication: low risk/ambulating Lines/Catheters IV Catheter Type (from Nrsg): Saline Lock Urinary Cath still in place: Yes Reason Cath still needed: other (indicate) (morbid obesity) Assessment/Plan Assessment/Plan 58 yo morbidly obese homeless woman with cirrhosis admitted after fall with UTI #toxic encephalopathy: - Likely due to UTI. Patient is awake and alert now. - Continue ceftriaxone pending sensitivities. - Continue lactulose for past history of HE. #urinary tract infection: - Ceftriaxone - Pending urine culture #R pleural effusion - This appears to be a chronic problem. Does not look like it has even been tapped at this hospital - Currently appears smaller than usual - Patient not severely hypoxic. Will hold off on thoracentesis. # cirrhosis: - Secondary to hepatitis C and alcohol. - Resume home lactulose, spironolactone # diabetes mellitus: - Insulin sliding scale # Right ankle pain: - Pending XR foot - If no fractures, PT evaluation # Homelessness: Consult social work. # DVT GI prophylaxis: SCDs, no GI prophylaxis indicated Result Diagram: 08/21/18 0707 08/21/18 0707 Subjective 24 Hr Interval Summary Free Text/Dictation No acute overnight events. This morning patient is sleepy but arousable. She does report one day of dysuria and R foot pain. Complaints about her current living situation (in car), wants to go back to SNF. Exam/Review of Systems Exam Vitals Vital Signs Date Temp Pulse Resp B/P (MAP) Pulse Ox O2 O2 Flow FiO2 Time Delivery Rate 08/21/18 97.8 88 20 116/56 96 08:00 (76) 08/21/18 2.0 06:18 08/20/18 Room Air 23:40 Intake and Output 08/20/18 08/20/18 08/21/18 1515:00 23:00 07:00 OutputOutput Total 350 ml BalanceBalance -350 ml Exam General: Morbidly obese woman lying in bed, somnolent but arousable, comfortable appearing. HEENT: Atraumatic, normocephalic. The pupils are equal, round and reactive. Extraocular motor are intact Neck: Supple with full range of motion. No rigidity or meningismus Chest: Nontender Lungs: Clear to auscultation bilaterally no crackles rales or wheezing Heart: Normal S1-S2, Regular rhythm and rate. No murmur, S3, or S4 Abdomen: Morbidly obese, soft , nontender, nondistended , bowel sounds are present. No guarding no rebound tenderness , No masses or organomegaly. No costovertebral temporal angle mass Extremities: Right ankle pain to palpation, bilateral lower extremities 1+ pitting edema, no overt signs of cellulitis noted Results Results 24hrs Laboratory Tests Test 08/20/18 23:13 08/21/18 02:56 08/21/18 05:00 08/21/18 07:07 White Blood Count 5.5 # 3.6 #L Red Blood Count 4.27 3.55 L Hemoglobin 12.1 10.0 L Hematocrit 38.1 31.9 L Mean Corpuscular 89.2 89.9 Volume Mean Corpuscular 28.3 L 28.2 L Hemoglobin Mean Corpuscular 31.8 L 31.3 L Hemoglobin Concent Red Cell 16.3 H 16.3 H Distribution Width Platelet Count 91 L 72 #L Mean Platelet 10.3 10.0 Volume Immature 0.900 H 0.800 H Granulocytes % Neutrophils % 68.5 61.9 Lymphocytes % 19.3 26.2 Monocytes % 10.2 10.0 Eosinophils % 0.0 0.0 Basophils % 1.1 1.1 Nucleated Red 0.0 0.0 Blood Cells % Immature 0.050 H 0.030 Granulocytes # Neutrophils # 3.8 2.2 Lymphocytes # 1.1 0.9 Monocytes # 0.6 0.4 Eosinophils # 0.0 0.0 Basophils # 0.1 0.0 Nucleated Red 0.0 0.0 Blood Cells # Prothrombin Time 15.2 H Prothrombin Time 1.2 Ratio INR International 1.19 Normalized Ratio Activated 31.[address] Time Sodium Level 138 140 Potassium Level 3.9 3.4 L Chloride Level 105 106 Carbon Dioxide 25 32 H Level Anion Gap 8 2 L Blood Urea 9 9 Nitrogen Creatinine 0.55 0.48 Est Glomerular > 60 > 60 Filtrat Rate mL/min Glucose Level 189 171 Calcium Level 8.7 8.2 L Total Bilirubin 2.2 H 1.9 H Direct Bilirubin 0.00 0.00 Indirect Bilirubin 2.2 H 1.9 H Aspartate Amino 80 H 68 H Transf (AST/SGOT) Alanine 32 34 Aminotransferase ( ALT/SGPT) Alkaline 189 H 110 Phosphatase Total Protein 8.6 H 6.1 # Albumin 2.9 L 2.0 L Globulin 5.70 H 4.10 H Albumin/Globulin 0.50 0.48 Ratio Lipase 143 Blood Gas Specimen Blood arterial Source Arterial Blood 08/21/2018 5:25:00 Date Drawn AM Arterial Blood pH 7.427 (Temp corrected) Arterial Blood 48.6 H pCO2 (Temp correct) Arterial Blood pO2 81.2 (Temp corrected) Arterial Blood 31.3 H HCO3 Arterial Blood 6.0 H Base Excess Arterial Blood 95.0 Oxygen Saturation Rey Test ACCEPTAB Arterial Blood Gas Right Radial Puncture Site Arterial 0.9 Blood Carboxyhemog lobin Arterial Blood 0.3 Methemoglobin Blood Gas A-a O2 53.8 H Differential Oxyhemoglobin 93.9 Percent Blood Gas 37.0 Temperature Blood Gas Modality NASAL CANNULA FiO2 27.0 Blood Gas Notified UP Whom Blood Gas Notified 08/21/2018 5:34:47 Time AM Urine Color YELLOW Urine Clarity CLOUDY A Urine pH 5.0 Urine Specific 1.004 [place] Urine Ketones NEGATIVE Urine Nitrite NEGATIVE Urine Bilirubin NEGATIVE Urine Urobilinogen NEGATIVE Urine Leukocyte 2+ H Esterase Urine Microscopic 5 RBC Urine Microscopic 67 H WBC Urine Bacteria FEW A Urine Hemoglobin 1+ H Urine Glucose NEGATIVE Urine Total NEGATIVE Protein D-Dimer 2341.45 H D-Dimer Comment Ammonia 58 #H Test 08/21/18 09:07 08/21/18 11:51 Hemoglobin A1c 7.7 H Bedside Glucose 195 Medications Medication Current Medications IV Flush (NS 3 ml) 3 ml PER PROTOCOL IV ; Start 08/21/18 at 01:30 Ondansetron HCl (Zofran Inj) 4 mg Q6H PRN IV NAUSEA/VOMITING; Start 08/21/18 at 01:30 Acetaminophen (Tylenol Tab) 650 mg Q6H PRN PO .PAIN 1-3 OR TEMP; Start 08/21/18 at 01:30 Acetaminophen/ Hydrocodone Bitart ([place] (5/325)) 1 tab Q6H PRN PO .MOD PAIN 4- 6; Start 08/21/18 at 01:30 Docusate Sodium (Colace) 100 mg Q12H PRN PO .CONSTIPATION; Start 08/21/18 at 01:30 Bisacodyl (Dulcolax) 5 mg DAILY PRN PO .CONSTIPATION; Start 08/21/18 at 01:30 Ceftriaxone Sodium 50 ml @ 100 mls/hr Q24H IVPB Last administered on 08/21/18 09:31; Admin Dose 100 MLS/HR; Start 08/21/18 at 08:00 Pantoprazole (Protonix Tab) 40 mg DAILY@0600 PO Last administered on 08/21/18 09:32; Admin Dose 40 MG; Start 08/21/18 at 09:00 Diagnostic Test (Pha) (Accu-Chek) 1 ea 02 XX ; Start 08/22/18 at 02:00 Insulin Aspart (Novolog Insulin Pen) NOVOLOG *MILD* ALGORITHM WITH MEALS BEDTIME SC Last administered on 08/21/18 12:13; Admin Dose 2 UNIT; Start 08/21/18 at 12:00 Spironolactone (Aldactone) 100 mg DAILY PO Last administered on 08/21/18at 09:34; Admin Dose 100 MG; Start 08/21/18 at 09:30 SKIP CONN MD Aug 21, 2018 12:35
[2018-08-21 14:00] VITALS: BP 124/62; PULSE 72; RESP 20
[2018-08-21 20:04] VITALS: BP 124/68; PULSE 89; RESP 20
[2018-08-21] MEDS: HYDROCODONE/APAP (5/325) TAB PO PRN (22:56)
[2018-08-22] MEDS: ACCU-CHEK XX SCH (02:00)
[2018-08-22 02:24] VITALS: BP 133/63; PULSE 84
[2018-08-22] MEDS: PANTOPRAZOLE (EC) 40 MG TAB PO SCH (06:25)
[2018-08-22] MEDS: HYDROCODONE/APAP (5/325) TAB PO PRN ×2 (06:25→19:30)
[2018-08-22] MEDS: INSULIN ASPART [NOVOLOG] 3 ML PEN SC SCH ×4 (08:09→21:09)
[2018-08-22] MEDS: MICONAZOLE 200 MG VAG SUPP VAG SCH (08:10)
[2018-08-22] MEDS: CEFTRIAXONE 1 GM/50 ML (PMX) 50 ML IVPB SCH (08:10)
[2018-08-22] MEDS: NYSTATIN 15 GM CR TOP SCH ×2 (08:10→21:07)
[2018-08-22] MEDS: SPIRONOLACTONE 50 MG TAB PO SCH (08:10)
[2018-08-22 08:16] VITALS: BP 112/51; PULSE 82; RESP 19
[2018-08-22 14:00] VITALS: BP 137/63; PULSE 86; RESP 18
--- NOTE | 2018-08-22 17:23 | PN ---
Date/Time of Note Date/Time of Note DATE: 08/22/18 TIME: 17:21 Assessment/Plan VTE Prophylaxis Risk score (from Ns)>0 risk: 3 SCD applied (from Ns): Yes Pharmacological prophylaxis: NA/contraindicated Pharm contraindication: thrombocytopenia Lines/Catheters IV C[facility]ter Type (from [facility]): Peripheral IV Urinary Cath still in place: Yes Reason Cath still needed: other (indicate) (incontience) Assessment/Plan Assessment/Plan 58 yo morbidly obese homeless woman with cirrhosis admitted after fall with UTI #toxic encephalopathy: - Likely due to UTI. Patient is awake and alert now. - Continue ceftriaxone pending sensitivities. - Continue lactulose for past history of HE. #urinary tract infection: - Ceftriaxone - Pending urine culture #R pleural effusion - This appears to be a chronic problem. Does not look like it has even been tap ped at this hospital - Currently appears smaller than usual - Patient not severely hypoxic. Will hold off on thoracentesis. # cirrhosis: - Secondary to hepatitis C and alcohol. - Resume home lactulose, spironolactone # diabetes mellitus: - Insulin sliding scale # Right ankle pain: - Pending XR foot - If no fractures, PT evaluation # Homelessness: Consult social work. # DVT GI prophylaxis: SCDs, no GI prophylaxis indicated Result Diagram: 08/21/18 0707 08/21/18 0707 Subjective 24 Hr Interval Summary Free Text/Dictation Patient very sleepy today. No complaints. Exam/Review of Systems Exam Vitals Vital Signs Date Temp Pulse Resp B/P (MAP) Pulse Ox O2 O2 Flow FiO2 Time Delivery Rate 08/22/18 98.0 86 18 137/63 94 14:00 (87) 08/22/18 2.0 13:07 08/20/18 Room Air 23:40 Intake and Output 08/21/18 08/21/18 08/22/18 1414:59 22:59 06:59 IntakeIntake Total 600 ml 580 ml 350 ml OutputOutput Total 800 ml 700 ml 400 ml BalanceBalance -200 ml -120 ml -50 ml Exam General: Morbidly obese woman lying in bed, somnolent but arousable, comfortable appearing. HEENT: Atraumatic, normocephalic. The pupils are equal, round and reactive. Extraocular motor are intact Neck: Supple with full range of motion. No rigidity or meningismus Chest: Nontender Lungs: Clear to auscultation bilaterally no crackles rales or wheezing Heart: Normal S1-S2, Regular rhythm and rate. No murmur, S3, or S4 Abdomen: Morbidly obese, soft , nontender, nondistended , bowel sounds are present. No guarding no rebound tenderness , No masses or organomegaly. No costovertebral temporal angle mass Extremities: Right ankle and foot pain to palpation, bilateral lower extremities 1+ pitting edema, no overt signs of cellulitis noted Results Results 24hrs Laboratory Tests Test 08/21/18 20:50 08/22/18 02:28 08/22/18 08:05 08/22/18 11:57 Bedside Glucose 247 H 183 153 162 Medications Medication Current Medications IV Flush (NS 3 ml) 3 ml PER PROTOCOL IV ; Start 08/21/18 at 01:30 Ondansetron HCl (Zofran Inj) 4 mg Q6H PRN IV NAUSEA/VOMITING; Start 08/21/18 at 01:30 Acetaminophen (Tylenol Tab) 650 mg Q6H PRN PO .PAIN 1-3 OR TEMP; Start 08/21/18 at 01:30 Acetaminophen/ Hydrocodone Bitart ([place] (5/325)) 1 tab Q6H PRN PO .MOD PAIN 4- 6 Last administered on 08/22/18at 06:25; Admin Dose 1 TAB; Start 08/21/18 at 01:30 Docusate Sodium (Colace) 100 mg Q12H PRN PO .CONSTIPATION; Start 08/21/18 at 01:30 Bisacodyl (Dulcolax) 5 mg DAILY PRN PO .CONSTIPATION; Start 08/21/18 at 01:30 Ceftriaxone Sodium 50 ml @ 100 mls/hr Q24H IVPB Last administered on 08/22/18at 08:10; Admin Dose 100 MLS/HR; Start 08/21/18 at 08:00 Pantoprazole (Protonix Tab) 40 mg DAILY@0600 PO Last administered on 08/22/18at 06:25; Admin Dose 40 MG; Start 08/21/18 at 09:00 Diagnostic Test (Pha) (Accu-Chek) 1 ea 02 XX ; Start 08/22/18 at 02:00 Insulin Aspart (Novolog Insulin Pen) NOVOLOG *MILD* ALGORITHM WITH MEALS BEDTIME SC Last administered on 08/22/18 11:58; Admin Dose 1 UNIT; Start 08/21/18 at 12:00 Spironolactone (Aldactone) 100 mg DAILY PO Last administered on 08/22/18 08:10; Admin Dose 100 MG; Start 08/21/18 at 09:30 Miconazole (Monistat-3) 1 supp DAILY VAG Last administered on 08/22/18 08:10; Admin Dose 1 SUPP; Start 08/22/18 at 09:00; Stop 08/24/18 at 09:01 Nystatin (Nystatin Cr) 1 applic BID TOP Last administered on 08/22/18 08:10; Admin Dose 1 APPLIC; Start 08/22/18 at 09:00 SKIP CONN MD Aug 22, 2018 17:23
[2018-08-22 20:12] VITALS: BP 144/66; PULSE 85; RESP 20
[2018-08-23] MEDS: ACCU-CHEK XX SCH (02:00)
[2018-08-23 02:53] VITALS: BP 130/61; PULSE 98; RESP 18
[2018-08-23] MEDS: HYDROCODONE/APAP (5/325) TAB PO PRN (03:22)
[2018-08-23] MEDS: PANTOPRAZOLE (EC) 40 MG TAB PO SCH (05:05)
[2018-08-23] MEDS: INSULIN ASPART [NOVOLOG] 3 ML PEN SC SCH ×4 (08:00→20:36)
[2018-08-23 08:34] VITALS: BP 126/58; PULSE 82; RESP 18
[2018-08-23] MEDS: CEFTRIAXONE 1 GM/50 ML (PMX) 50 ML IVPB SCH (08:45)
[2018-08-23] MEDS: SPIRONOLACTONE 50 MG TAB PO SCH (08:45)
[2018-08-23] MEDS: NYSTATIN 15 GM CR TOP SCH ×2 (08:46→20:37)
[2018-08-23] MEDS: MICONAZOLE 200 MG VAG SUPP VAG SCH (08:46)
[2018-08-23 14:57] VITALS: BP 120/60; PULSE 84; RESP 18
--- NOTE | 2018-08-23 16:57 | PN ---
Date/Time of Note Date/Time of Note DATE: 08/23/18 TIME: 16:54 Assessment/Plan VTE Prophylaxis Risk score (from Ns)>0 risk: 5 SCD applied (from Ns): Yes Pharmacological prophylaxis: NA/contraindicated Pharm contraindication: low risk/ambulating Lines/Catheters IV C[facility] Type (from [facility]): Saline Lock Urinary Cath still in place: Yes Reason Cath still needed: other (indicate) (incontinent) Assessment/Plan Assessment/Plan 58 yo morbidly obese homeless woman with cirrhosis admitted after fall with UTI #toxic encephalopathy: - Likely due to UTI. Patient is awake and alert now. - Continue ceftriaxone p - Continue lactulose for past history of HE. #urinary tract infection: - Unfortunately it looks like urine culture was not sent on admission. - Will complete 3-5 day course of empiric ceftriaxone. #R pleural effusion - This appears to be a chronic problem. Does not look like it has even been tapped at this hospital - Currently appears smaller than usual - Patient not severely hypoxic. Will hold off on thoracentesis. # cirrhosis: - Secondary to hepatitis C and alcohol. - Resume home lactulose, spironolactone # diabetes mellitus: - Insulin sliding scale # Right ankle pain: - Pending XR foot - If no fractures, PT evaluation # Homelessness: Consult social work. # DVT GI prophylaxis: SCDs, no GI prophylaxis indicated Result Diagram: 08/21/18 0707 08/21/18 0707 Subjective 24 Hr Interval Summary Free Text/Dictation No acute overnight events. Patient still very lethargic. Arousable, but has not left the bed since admission apparently. Exam/Review of Systems Exam Vitals Vital Signs Date Temp Pulse Resp B/P (MAP) Pulse Ox O2 O2 Flow FiO2 Time Delivery Rate 08/23/18 98.7 84 18 120/60 94 Nasal 2.0 14:57 (80) Cannula Intake and Output 08/22/18 08/22/18 08/23/18 1515:00 23:00 07:00 IntakeIntake Total 870 ml 300 ml OutputOutput Total 1600 ml BalanceBalance 870 ml -1300 ml Exam General: Morbidly obese woman lying in bed, somnolent but arousable, comfortable appearing. HEENT: Atraumatic, normocephalic. The pupils are equal, round and reactive. Extraocular motor are intact Neck: Supple with full range of motion. No rigidity or meningismus Chest: Nontender Lungs: Clear to auscultation bilaterally no crackles rales or wheezing Heart: Normal S1-S2, Regular rhythm and rate. No murmur, S3, or S4 Abdomen: Morbidly obese, soft , nontender, nondistended , bowel sounds are present. No guarding no rebound tenderness , No masses or organomegaly. No costovertebral temporal angle mass Extremities: Right ankle and foot pain to palpation, bilateral lower extremities 1+ pitting edema, no overt signs of cellulitis noted Results Results 24hrs Laboratory Tests Test 08/22/18 17:21 08/22/18 21:06 08/23/18 02:04 08/23/18 08:15 Bedside Glucose 150 210 141 133 Test 08/23/18 11:47 Bedside Glucose 215 Medications Medication Current Medications IV Flush (NS 3 ml) 3 ml PER PROTOCOL IV ; Start 08/21/18 at 01:30 Ondansetron HCl (Zofran Inj) 4 mg Q6H PRN IV NAUSEA/VOMITING; Start 08/21/18 at 01:30 Acetaminophen (Tylenol Tab) 650 mg Q6H PRN PO .PAIN 1-3 OR TEMP; Start 08/21/18 at 01:30 Acetaminophen/ Hydrocodone Bitart ([place] (5/325)) 1 tab Q6H PRN PO .MOD PAIN 4- 6 Last administered on 08/23/18at 03:22; Admin Dose 1 TAB; Start 08/21/18 at 01:30 Docusate Sodium (Colace) 100 mg Q12H PRN PO .CONSTIPATION; Start 08/21/18 at 01:30 Bisacodyl (Dulcolax) 5 mg DAILY PRN PO .CONSTIPATION; Start 08/21/18 at 01:30 Ceftriaxone Sodium 50 ml @ 100 mls/hr Q24H IVPB Last administered on 08/23/18at 08:45; Admin Dose 100 MLS/HR; Start 08/21/18 at 08:00 Pantoprazole (Protonix Tab) 40 mg DAILY@0600 PO Last administered on 08/23/18at 05:05; Admin Dose 40 MG; Start 08/21/18 at 09:00 Diagnostic Test (Pha) (Accu-Chek) 1 ea 02 XX ; Start 08/22/18 at 02:00 Insulin Aspart (Novolog Insulin Pen) NOVOLOG *MILD* ALGORITHM WITH MEALS BEDTIME SC Last administered on 08/23/18 11:50; Admin Dose 2 UNIT; Start 08/21/18 at 12:00 Spironolactone (Aldactone) 100 mg DAILY PO Last administered on 08/23/18 08:45; Admin Dose 100 MG; Start 08/21/18 at 09:30 Miconazole (Monistat-3) 1 supp DAILY VAG Last administered on 08/23/18 08:46; Admin Dose 1 SUPP; Start 08/22/18 at 09:00; Stop 08/23/18 at 23:00; Status Future hold Nystatin (Nystatin Cr) 1 applic BID TOP Last administered on 08/23/18 08:46; Admin Dose 1 APPLIC; Start 08/22/18 at 09:00 Miconazole (Monistat-7) 2 supp DAILY VAG ; Start 08/24/18 at 09:00; Stop 08/24/18 at 09:01 SKIP CONN MD Aug 23, 2018 16:57
[2018-08-23 20:00] VITALS: BP 162/74; PULSE 84; RESP 18
[2018-08-24 02:00] VITALS: BP 145/66; PULSE 88; RESP 18
[2018-08-24] MEDS: ACCU-CHEK XX SCH (02:00)
[2018-08-24] MEDS: PANTOPRAZOLE (EC) 40 MG TAB PO SCH (05:41)
[2018-08-24 08:30] VITALS: BP 153/70; PULSE 80; RESP 18
[2018-08-24] MEDS: INSULIN ASPART [NOVOLOG] 3 ML PEN SC SCH ×4 (08:48→20:41)
[2018-08-24] MEDS: SPIRONOLACTONE 50 MG TAB PO SCH (08:51)
[2018-08-24] MEDS: CEFTRIAXONE 1 GM/50 ML (PMX) 50 ML IVPB SCH (08:51)
[2018-08-24] MEDS: NYSTATIN 15 GM CR TOP SCH ×2 (08:52→20:41)
[2018-08-24] MEDS ORDERED: MICONAZOLE 100 MG VAG SUPP VAG SCH (09:00)
--- NOTE | 2018-08-24 13:56 | PN ---
Date/Time of Note Date/Time of Note DATE: 08/24/18 TIME: 13:51 Assessment/Plan VTE Prophylaxis Risk score (from Ns)>0 risk: 4 SCD applied (from [facility]): Yes Pharmacological prophylaxis: NA/contraindicated Pharm contraindication: thrombocytopenia Lines/Catheters IV [facility] Type (from [email or web address] Saline Lock Urinary Cath still in place: No Reason Cath still needed: other (indicate) (not needed) Assessment/Plan Assessment/Plan 58 yo morbidly obese homeless woman with cirrhosis admitted after fall with UTI #toxic encephalopathy: - Likely due to UTI. Patient is awake and alert now. - Continue lactulose for past history of HE. #urinary tract infection: - Unfortunately it looks like urine culture was not sent on admission. - Will complete 3-5 day course of empiric ceftriaxone. #R pleural effusion - This appears to be a chronic problem. - Very small and loculated, unlikely to be accessable for diagnostic thora, almost certainly that therapeutic thora would be impossible. - Currently appears smaller than usual # cirrhosis: - Secondary to hepatitis C and alcohol. - Resume home lactulose, spironolactone # diabetes mellitus: - Insulin sliding scale # Right ankle pain: - XR foot and ankle with no fractures - PT eval # Homelessness: Consult social work. # DVT GI prophylaxis: SCDs, no GI prophylaxis indicated Dispo: Medically stable for discharge; pending placement. Result Diagram: 08/24/1861208/24/18612 Subjective 24 Hr Interval Summary Free Text/Dictation No acute overnight events. Patient is finally a little more awake today, able to sit up at edge of bed. She is apprehensive about walking because of R foot tenderness. Exam/Review of Systems Exam Vitals Vital Signs Date Temp Pulse Resp B/P (MAP) Pulse Ox O2 O2 Flow FiO2 Time Delivery Rate 08/24/18 98.0 80 18 153/70 95 08:30 (97) 08/24/18 Nasal 2.0 08:00 Cannula Intake and Output 08/23/18 08/23/18 08/24/18 1515:00 23:00 07:00 IntakeIntake Total 890 ml 560 ml OutputOutput Total 1300 ml 2400 ml 2000 ml BalanceBalance -410 ml -1840 ml -2000 ml Exam General: Morbidly obese woman sitting up in bed, comfortable appearing. HEENT: Atraumatic, normocephalic. The pupils are equal, round and reactive. Extraocular motor are intact Neck: Supple with full range of motion. No rigidity or meningismus Chest: Nontender Lungs: Clear to auscultation bilaterally no crackles rales or wheezing Heart: Normal S1-S2, Regular rhythm and rate. No murmur, S3, or S4 Abdomen: Morbidly obese, soft , nontender, nondistended , bowel sounds are present. No guarding no rebound tenderness , No masses or organomegaly. No costovertebral temporal angle mass Extremities: Right ankle and foot pain to palpation, bilateral lower extremities 1+ pitting edema, no overt signs of cellulitis noted Results Results 24hrs Laboratory Tests Test 08/23/18 17:20 08/23/18 20:30 08/24/18 03:05 08/24/18 06:13 Bedside Glucose 211 224 H 119 White Blood Count 2.3 #L Red Blood Count 3.37 L Hemoglobin 9.7 L Hematocrit 30.3 L Mean Corpuscular 89.9 Volume Mean Corpuscular 28.8 L Hemoglobin Mean Corpuscular 32.0 Hemoglobin Concent Red Cell 15.9 H Distribution Width Platelet Count 53 #L Mean Platelet Volume 9.4 Immature 2.200 H Granulocytes % Neutrophils % 55.8 Lymphocytes % 28.1 Monocytes % 12.6 H Eosinophils % 0.0 Basophils % 1.3 Nucleated Red Blood 0.0 Cells % Immature 0.050 H Granulocytes # Neutrophils # 1.3 L Lymphocytes # 0.7 L Monocytes # 0.3 Eosinophils # 0.0 Basophils # 0.0 Nucleated Red Blood 0.0 Cells # Sodium Level 140 Potassium Level 3.8 Chloride Level 102 Carbon Dioxide Level 35 H Anion Gap 3 L Blood Urea Nitrogen 9 Creatinine 0.55 Est Glomerular > 60 Filtrat Rate mL/min Glucose Level 138 Calcium Level 8.6 Phosphorus Level 3.2 Magnesium Level 1.2 L Test 08/24/18 08:00 08/24/18 12:08 Bedside Glucose 149 223 H Medications Medication Current Medications IV Flush (NS 3 ml) 3 ml PER PROTOCOL IV ; Start 08/21/18 at 01:30 Ondansetron HCl (Zofran Inj) 4 mg Q6H PRN IV NAUSEA/VOMITING; Start 08/21/18 at 01:30 Acetaminophen (Tylenol Tab) 650 mg Q6H PRN PO .PAIN 1-3 OR TEMP; Start 08/21/18 at 01:30 Acetaminophen/ Hydrocodone Bitart ([place] (5/325)) 1 tab Q6H PRN PO .MOD PAIN 4- 6 Last administered on 08/23/18 03:22; Admin Dose 1 TAB; Start 08/21/18 at 01:30 Docusate Sodium (Colace) 100 mg Q12H PRN PO .CONSTIPATION; Start 08/21/18 at 01:30 Bisacodyl (Dulcolax) 5 mg DAILY PRN PO .CONSTIPATION Last administered on 08/23/18 20:37; Admin Dose 5 MG; Start 08/21/18 at 01:30 Ceftriaxone Sodium 50 ml @ 100 mls/hr Q24H IVPB Last administered on 08/24/18 08:51; Admin Dose 100 MLS/HR; Start 08/21/18 at 08:00 Pantoprazole (Protonix Tab) 40 mg DAILY@0600 PO Last administered on 08/24/18 05:41; Admin Dose 40 MG; Start 08/21/18 at 09:00 Diagnostic Test (Pha) (Accu-Chek) 1 ea 02 XX ; Start 08/22/18 at 02:00 Insulin Aspart (Novolog Insulin Pen) NOVOLOG *MILD* ALGORITHM WITH MEALS BEDTIME SC Last administered on 08/24/18 12:27; Admin Dose 3 UNIT; Start 08/21/18 at 12:00 Spironolactone (Aldactone) 100 mg DAILY PO Last administered on 08/24/18 08:51; Admin Dose 100 MG; Start 08/21/18 at 09:30 Nystatin (Nystatin Cr) 1 applic BID TOP Last administered on 08/24/18 08:52; Admin Dose 1 APPLIC; Start 08/22/18 at 09:00 SKIP CONN MD Aug 24, 2018 13:56
[2018-08-24 14:00] VITALS: BP 158/70; PULSE 84; RESP 18
[2018-08-24] MEDS ORDERED: MAGNESIUM SULFATE 3 GM in DEXTROSE 5% 100 ML IVPB ONE (15:30)
[2018-08-24] MEDS: HYDROCODONE/APAP (5/325) TAB PO PRN ×2 (15:46→21:44)
[2018-08-24 20:00] VITALS: BP 148/67; PULSE 85; RESP 17
[2018-08-25] MEDS: ACCU-CHEK XX SCH (01:53)
[2018-08-25 02:00] VITALS: BP 146/68; PULSE 77; RESP 18
[2018-08-25] MEDS: PANTOPRAZOLE (EC) 40 MG TAB PO SCH (05:18)
[2018-08-25] MEDS: SPIRONOLACTONE 50 MG TAB PO SCH (08:07)
[2018-08-25] MEDS: NYSTATIN 15 GM CR TOP SCH ×2 (08:08→20:54)
[2018-08-25] MEDS: INSULIN ASPART [NOVOLOG] 3 ML PEN SC SCH ×4 (08:09→20:53)
[2018-08-25 08:30] VITALS: BP 158/73; PULSE 79; RESP 17
[2018-08-25] MEDS: CEFTRIAXONE 1 GM/50 ML (PMX) 50 ML IVPB SCH (12:40)
[2018-08-25] MEDS: HYDROCODONE/APAP (5/325) TAB PO PRN ×2 (13:26→20:56)
[2018-08-25 14:27] VITALS: BP 143/65; PULSE 82; RESP 19
--- NOTE | 2018-08-25 16:45 | PN ---
Date/Time of Note Date/Time of Note DATE: 08/25/18 TIME: 16:43 Assessment/Plan VTE Prophylaxis Risk score (from Ns)>0 risk: 4 SCD applied (from Ns): Yes Pharmacological prophylaxis: other Lines/Catheters IV Catheter Type (from Nrs): Saline Lock Urinary Cath still in place: No Assessment/Plan Hospital Course S: O: VS - see below PE: Assessment/Plan: 58 yo morbidly obese homeless woman with cirrhosis admitted after fall with UTI #toxic encephalopathy- Likely due to UTI. Patient is awake and alert now. -Monitor, also continue lactulose for past history of HE. #urinary tract infection- Unfortunately it looks like urine culture was not sent on admission. - Will complete 3-5 day course of empiric ceftriaxone, follow-up culture results #R pleural effusion- This appears to be a chronic problem. - Very small and loculated, unlikely to be accessable for diagnostic thora, almost certainly that therapeutic thora would be impossible- Currently appears smaller than usual -Monitor for now # cirrhosis- Secondary to hepatitis C and alcohol. - Resume home lactulose, spironolactone # diabetes mellitus: - Insulin sliding scale # Right ankle pain: - XR foot and ankle with no fractures - PT eval # Homelessness: Consult social work, case management also now involved # DVT GI prophylaxis: SCDs, no GI prophylaxis indicated Dispo: Medically stable for discharge; pending placement -follow case management on this. Result Diagram: 08/24/18 0613 08/24/18 0613 Results 24hrs Laboratory Tests Test 08/24/18 17:28 08/24/18 20:37 08/25/18 01:51 08/25/18 08:05 Bedside Glucose 170 238 H 169 153 Test 08/25/18 12:39 Bedside Glucose 161 Exam/Review of Systems Exam Vitals Vital Signs Date Temp Pulse Resp B/P (MAP) Pulse Ox O2 O2 Flow FiO2 Time Delivery Rate 08/25/18 97.6 82 19 143/65 93 14:27 (91) 08/25/18 Nasal 2.0 08:00 Cannula Intake and Output 08/24/18 08/24/18 08/25/18 1515:00 23:00 07:00 IntakeIntake Total 650 ml 296 ml OutputOutput Total 2800 ml 600 ml BalanceBalance -2150 ml -304 ml Results Results 24hrs Laboratory Tests Test 08/24/18 17:28 08/24/18 20:37 08/25/18 01:51 08/25/18 08:05 Bedside Glucose 170 238 H 169 153 Test 08/25/18 12:39 Bedside Glucose 161 Medications Medication Current Medications IV Flush (NS 3 ml) 3 ml PER PROTOCOL IV ; Start 08/21/18 at 01:30 Ondansetron HCl (Zofran Inj) 4 mg Q6H PRN IV NAUSEA/VOMITING; Start 08/21/18 at 01:30 Acetaminophen (Tylenol Tab) 650 mg Q6H PRN PO .PAIN 1-3 OR TEMP; Start 08/21/18 at 01:30 Acetaminophen/ Hydrocodone Bitart ([place] (5/325)) 1 tab Q6H PRN PO .MOD PAIN 4- 6 Last administered on 08/25/18 13:26; Admin Dose 1 TAB; Start 08/21/18 at 01:30 Docusate Sodium (Colace) 100 mg Q12H PRN PO .CONSTIPATION; Start 08/21/18 at 01:30 Bisacodyl (Dulcolax) 5 mg DAILY PRN PO .CONSTIPATION Last administered on 08/23/18 20:37; Admin Dose 5 MG; Start 08/21/18 at 01:30 Ceftriaxone Sodium 50 ml @ 100 mls/hr Q24H IVPB Last administered on 08/25/18 12:40; Admin Dose 100 MLS/HR; Start 08/21/18 at 08:00 Pantoprazole (Protonix Tab) 40 mg DAILY@0600 PO Last administered on 08/25/18 05:18; Admin Dose 40 MG; Start 08/21/18 at 09:00 Diagnostic Test (Pha) (Accu-Chek) 1 ea 02 XX ; Start 08/22/18 at 02:00 Insulin Aspart (Novolog Insulin Pen) NOVOLOG *MILD* ALGORITHM WITH MEALS BEDTIME SC Last administered on 08/25/18 12:40; Admin Dose 1 UNIT; Start 08/21/18 at 12:00 Spironolactone (Aldactone) 100 mg DAILY PO Last administered on 08/25/18 08:07; Admin Dose 100 MG; Start 08/21/18 at 09:30 Nystatin (Nystatin Cr) 1 applic BID TOP Last administered on 3/11/19at 08:08; Admin Dose 1 APPLIC; Start 08/22/18 at 09:00 JAMARI ALVARADO Aug 25, 2018 16:45
[2018-08-25 20:35] VITALS: BP 118/58; PULSE 77; RESP 16
[2018-08-26] MEDS: ACCU-CHEK XX SCH (02:00)
[2018-08-26 02:11] VITALS: BP 127/58; PULSE 75; RESP 16
[2018-08-26] MEDS: PANTOPRAZOLE (EC) 40 MG TAB PO SCH (06:01)
[2018-08-26] MEDS: INSULIN ASPART [NOVOLOG] 3 ML PEN SC SCH ×4 (08:00→20:38)
[2018-08-26 08:21] VITALS: BP 159/96; PULSE 76; RESP 20
[2018-08-26] MEDS: SPIRONOLACTONE 50 MG TAB PO SCH (08:27)
[2018-08-26] MEDS: CEFTRIAXONE 1 GM/50 ML (PMX) 50 ML IVPB SCH (08:27)
[2018-08-26] MEDS: NYSTATIN 15 GM CR TOP SCH ×2 (08:32→20:41)
[2018-08-26] MEDS: HYDROCODONE/APAP (5/325) TAB PO PRN ×3 (08:33→22:32)
[2018-08-26 15:08] VITALS: BP 102/53; PULSE 82; RESP 18
--- NOTE | 2018-08-26 15:14 | PN ---
Date/Time of Note Date/Time of Note DATE: 08/26/18 TIME: 15:13 Assessment/Plan VTE Prophylaxis Risk score (from Nsg)>0 risk: 3 SCD applied (from Nsg): Yes Pharmacological prophylaxis: other Lines/Catheters IV Catheter Type (from Nrsg): Saline Lock Urinary Cath still in place: No Assessment/Plan Hospital Course S: Patient still having some pain when ambulating, seen by physical therapy team yesterday. Of note [facility] [place] [facility] a week ago when she was discharged. O: VS - see below PE: General: Morbidly obese woman sitting up in bed, comfortable appearing. HEENT: Atraumatic, normocephalic. The pupils are equal, round and reactive. Extraocular motor are intact Neck: Supple with full range of motion. No rigidity or meningismus Chest: Nontender Lungs: Clear to auscultation bilaterally no crackles rales or wheezing Heart: Normal S1-S2, Regular rhythm and rate. No murmur, S3, or S4 Abdomen: Morbidly obese, soft , nontender, nondistended , bowel sounds are present. No guarding no rebound tenderness , No masses or organomegaly. No costovertebral temporal angle mass Extremities: Right ankle and foot pain to palpation, bilateral lower extremities 1+ pitting edema, no overt signs of cellulitis noted Assessment/Plan: 58 yo morbidly obese homeless woman with cirrhosis admitted after fall with UTI. #toxic encephalopathy- Likely due to UTI. Patient is awake and alert now. -Monitor, also continue lactulose for past history of HE. #urinary tract infection- Unfortunately it looks like urine culture was not sent on admission. - Will complete 3-5 day course of empiric ceftriaxone, follow-up culture results #R pleural effusion- This appears to be a chronic problem. - Very small and loculated, unlikely to be accessable for diagnostic thora, almost certainly that therapeutic thora would be impossible- Currently appears smaller than usual -Monitor for now # cirrhosis- Secondary to hepatitis C and alcohol. - Resume home lactulose, spironolactone # diabetes mellitus: - Insulin sliding scale # Right ankle pain: - XR foot and ankle with no fractures, however her right toes are bruised as she injured them getting in a friend's van a few days prior to admission - PT to continue, also case management working on [facility] placement as patient will likely need this for a few days upon discharge # Homelessness: Consult social work, case management also now involved # DVT GI prophylaxis: SCDs, no GI prophylaxis indicated Dispo: Medically stable for discharge; pending placement -follow case management on this. Result Diagram: 08/24/18 0613 08/24/18 0613 Results 24hrs Laboratory Tests Test 08/25/18 17:28 08/25/18 20:53 08/26/18 08:15 08/26/18 12:10 Bedside Glucose 168 170 129 182 Exam/Review of Systems Exam Vitals Vital Signs Date Temp Pulse Resp B/P (MAP) Pulse Ox O2 O2 Flow FiO2 Time Delivery Rate 08/26/18 97.9 82 18 102/53 96 Room Air 15:08 (69) 08/26/18 2.0 09:57 Intake and Output 08/25/18 08/25/18 08/26/18 1515:00 23:00 07:00 IntakeIntake Total 650 ml 480 ml 320 ml BalanceBalance 650 ml 480 ml 320 ml Results Results 24hrs Laboratory Tests Test 08/25/18 17:28 08/25/18 20:53 08/26/18 08:15 08/26/18 12:10 Bedside Glucose 168 170 129 182 Medications Medication Current Medications IV Flush (NS 3 ml) 3 ml PER PROTOCOL IV ; Start 08/21/18 at 01:30 Ondansetron HCl (Zofran Inj) 4 mg Q6H PRN IV NAUSEA/VOMITING; Start 08/21/18 at 01:30 Acetaminophen (Tylenol Tab) 650 mg Q6H PRN PO .PAIN 1-3 OR TEMP; Start 08/21/18 at 01:30 Acetaminophen/ Hydrocodone Bitart ([place] (5/325)) 1 tab Q6H PRN PO .MOD PAIN 4- 6 Last administered on 08/26/18at 08:33; Admin Dose 1 TAB; Start 08/21/18 at 01:30 Docusate Sodium (Colace) 100 mg Q12H PRN PO .CONSTIPATION; Start 08/21/18 at 01:30 Bisacodyl (Dulcolax) 5 mg DAILY PRN PO .CONSTIPATION Last administered on 08/23/18at 20:37; Admin Dose 5 MG; Start 08/21/18 at 01:30 Ceftriaxone Sodium 50 ml @ 100 mls/hr Q24H IVPB Last administered on 08/26/18 08:27; Admin Dose 100 MLS/HR; Start 08/21/18 at 08:00 Pantoprazole (Protonix Tab) 40 mg DAILY@0600 PO Last administered on 08/26/18 06:01; Admin Dose 40 MG; Start 08/21/18 at 09:00 Diagnostic Test (Pha) (Accu-Chek) 1 ea 02 XX ; Start 08/22/18 at 02:00 Insulin Aspart (Novolog Insulin Pen) NOVOLOG *MILD* ALGORITHM WITH MEALS BEDTIME SC Last administered on 08/26/18 12:13; Admin Dose 2 UNIT; Start 08/21/18 at 12:00 Spironolactone (Aldactone) 100 mg DAILY PO Last administered on 08/26/18 08:27; Admin Dose 100 MG; Start 08/21/18 at 09:30 Nystatin (Nystatin Cr) 1 applic BID TOP Last administered on 08/26/18 08:32; Admin Dose 1 APPLIC; Start 08/22/18 at 09:00 JAMARI ALVARADO Aug 26, 2018 15:14
[2018-08-26 20:00] VITALS: BP 123/55; PULSE 76; RESP 18
[2018-08-27] MEDS: ACCU-CHEK XX SCH (01:58)
[2018-08-27 02:00] VITALS: BP 135/59; PULSE 77; RESP 18
[2018-08-27] MEDS: PANTOPRAZOLE (EC) 40 MG TAB PO SCH (05:31)
[2018-08-27] MEDS: HYDROCODONE/APAP (5/325) TAB PO PRN ×3 (05:31→20:53)
[2018-08-27 07:56] VITALS: BP 133/67; PULSE 83; RESP 20
[2018-08-27] MEDS: INSULIN ASPART [NOVOLOG] 3 ML PEN SC SCH ×4 (08:00→20:57)
[2018-08-27] MEDS: SPIRONOLACTONE 50 MG TAB PO SCH (09:03)
[2018-08-27] MEDS: CEFTRIAXONE 1 GM/50 ML (PMX) 50 ML IVPB SCH (09:04)
[2018-08-27] MEDS: NYSTATIN 15 GM CR TOP SCH ×2 (09:04→21:30)
[2018-08-27 14:31] VITALS: BP 147/68; PULSE 78; RESP 18
--- NOTE | 2018-08-27 15:23 | PN ---
Date/Time of Note Date/Time of Note DATE: 08/27/18 TIME: 15:22 Assessment/Plan VTE Prophylaxis Risk score (from Ns)>0 risk: 3 SCD applied (from Ns): Yes Pharmacological prophylaxis: other Lines/Catheters IV Catheter Type (from [facility]): Saline Lock Urinary Cath still in place: No Assessment/Plan Hospital Course S: Patient had no acute events overnight. O: VS - see below PE: General: Morbidly obese woman sitting up in bed, comfortable appearing. HEENT: Atraumatic, normocephalic. The pupils are equal, round and reactive. Extraocular motor are intact Neck: Supple with full range of motion. No rigidity or meningismus Chest: Nontender Lungs: Clear to auscultation bilaterally no crackles rales or wheezing Heart: Normal S1-S2, Regular rhythm and rate. No murmur, S3, or S4 Abdomen: Morbidly obese, soft , nontender, nondistended , bowel sounds are present. No guarding no rebound tenderness , No masses or organomegaly. No costovertebral temporal angle mass Extremities: Right ankle and foot pain to palpation, bilateral lower extremities 1+ pitting edema, no overt signs of cellulitis noted Assessment/Plan: 58 yo morbidly obese homeless woman with cirrhosis admitted after fall with UTI. #toxic encephalopathy- Likely due to UTI. Patient is awake and alert now. -Monitor, also continue lactulose for past history of HE. #urinary tract infection- Unfortunately it looks like urine culture was not sent on admission. - Will complete 3-5 day course of empiric ceftriaxone, follow-up culture results #R pleural effusion- This appears to be a chronic problem. - Very small and loculated, unlikely to be accessable for diagnostic thora, almost certainly that therapeutic thora would be impossible- Currently appears smaller than usual -Monitor for now # cirrhosis- Secondary to hepatitis C and alcohol. - Resume home lactulose, spironolactone # diabetes mellitus: - Insulin sliding scale # Right ankle pain: - XR foot and ankle with no fractures, however her right toes are bruised as she injured them getting in a friend's van a few days prior to admission - PT to continue, also case management working on nursing home facility placement as patient will likely need this for a few days upon discharge # Homelessness: Consult social work, case management also now involved # DVT GI prophylaxis: SCDs, no GI prophylaxis indicated Dispo: Medically stable for discharge; pending placement -follow case management on this. Result Diagram: 08/24/18 0613 08/24/18 0613 Results 24hrs Laboratory Tests Test 08/26/18 17:30 08/26/18 20:34 08/27/18 02:00 08/27/18 08:26 Bedside Glucose 222 H 200 203 120 Test 08/27/18 12:30 Bedside Glucose 206 Exam/Review of Systems Exam Vitals Vital Signs Date Temp Pulse Resp B/P (MAP) Pulse Ox O2 O2 Flow FiO2 Time Delivery Rate 08/27/18 98.4 78 18 147/68 94 14:31 (94) 08/27/18 Nasal 2.0 08:00 Cannula Intake and Output 08/26/18 08/26/18 08/27/18 1515:00 23:00 07:00 IntakeIntake Total 830 ml 400 ml OutputOutput Total 900 ml 900 ml BalanceBalance -70 ml -500 ml Results Results 24hrs Laboratory Tests Test 08/26/18 17:30 08/26/18 20:34 08/27/18 02:00 08/27/18 08:26 Bedside Glucose 222 H 200 203 120 Test 08/27/18 12:30 Bedside Glucose 206 Medications Medication Current Medications IV Flush (NS 3 ml) 3 ml PER PROTOCOL IV ; Start 08/21/18 at 01:30 Ondansetron HCl (Zofran Inj) 4 mg Q6H PRN IV NAUSEA/VOMITING; Start 08/21/18 at 01:30 Acetaminophen (Tylenol Tab) 650 mg Q6H PRN PO .PAIN 1-3 OR TEMP Last administered on 08/27/18at 02:02; Admin Dose 650 MG; Start 08/21/18 at 01:30 Acetaminophen/ Hydrocodone Bitart ([place] (5/325)) 1 tab Q6H PRN PO .MOD PAIN 4- 6 Last administered on 08/27/18at 14:08; Admin Dose 1 TAB; Start 08/21/18 at 01:30 Docusate Sodium (Colace) 100 mg Q12H PRN PO .CONSTIPATION; Start 08/21/18 at 01:30 Bisacodyl (Dulcolax) 5 mg DAILY PRN PO .CONSTIPATION Last administered on 08/23/18at 20:37; Admin Dose 5 MG; Start 08/21/18 at 01:30 Ceftriaxone Sodium 50 ml @ 100 mls/hr Q24H IVPB Last administered on 08/27/18 09:04; Admin Dose 100 MLS/HR; Start 08/21/18 at 08:00 Pantoprazole (Protonix Tab) 40 mg DAILY@0600 PO Last administered on 08/27/18 05:31; Admin Dose 40 MG; Start 08/21/18 at 09:00 Diagnostic Test (Pha) (Accu-Chek) 1 ea 02 XX Last administered on 08/27/18 01:58; Admin Dose 1 EA; Start 08/22/18 at 02:00 Insulin Aspart (Novolog Insulin Pen) NOVOLOG *MILD* ALGORITHM WITH MEALS BEDTIME SC Last administered on 08/27/18 12:43; Admin Dose 2 UNIT; Start 08/21/18 at 12:00 Spironolactone (Aldactone) 100 mg DAILY PO Last administered on 08/27/18 09:03; Admin Dose 100 MG; Start 08/21/18 at 09:30 Nystatin (Nystatin Cr) 1 applic BID TOP Last administered on 08/27/18 09:04; Admin Dose 1 APPLIC; Start 08/22/18 at 09:00 JAMARI ALVARADO Aug 27, 2018 15:23
[2018-08-27 20:48] VITALS: BP 141/64; PULSE 80; RESP 16
[2018-08-28 02:01] VITALS: BP 131/68; PULSE 77; RESP 16
[2018-08-28] MEDS: ACCU-CHEK XX SCH (02:08)
[2018-08-28] MEDS: PANTOPRAZOLE (EC) 40 MG TAB PO SCH (06:01)
[2018-08-28 08:32] VITALS: BP 141/67; PULSE 81; RESP 18
[2018-08-28] MEDS: CEFTRIAXONE 1 GM/50 ML (PMX) 50 ML IVPB SCH (08:51)
[2018-08-28] MEDS: INSULIN ASPART [NOVOLOG] 3 ML PEN SC SCH ×3 (08:51→17:47)
[2018-08-28] MEDS: SPIRONOLACTONE 50 MG TAB PO SCH (08:51)
[2018-08-28] MEDS: HYDROCODONE/APAP (5/325) TAB PO PRN ×2 (08:52→20:44)
[2018-08-28] MEDS: NYSTATIN 15 GM CR TOP SCH (08:55)
[2018-08-28 14:04] VITALS: BP 115/59; PULSE 75; RESP 18
--- NOTE | 2018-08-28 16:19 | PDOCDIS ---
Discharge Instructions CONDITION [id number] Patient Condition: [id number] Stable JAMARI ALVARADO Aug 28, 2018 16:19
--- NOTE | 2018-08-28 16:25 | DS ---
Date/Time of Note Date/Time of Note DATE: 08/28/18 TIME: 16:23 Discharge Summary Admission/Discharge Info Admit Date/Time Aug 21, 2018 at 10:10 Discharge Date/Time Discharge Diagnosis #toxic encephalopathy- Likely due to UTI. Resolved now #urinary tract infection-completed 7-day course of empiric ceftriaxone, follow- up culture results #R pleural effusion- -Monitor for now # cirrhosis- Secondary to hepatitis C and alcohol. # diabetes mellitus: # Right ankle pain: - XR foot and ankle with no fractures, however her right toes are bruised as she injured them getting in a friend's van a few days prior to admission # Homelessness Patient Condition: Stable Hx of Present Illness Patient is a poor historian and she does appear to be lethargic. History was obtained from the ED physician as well as the nursing documentation. Patient was brought in by EMS after she was found on the sidewalk where she was sitting on a walker next to her own vehicle after she had fell coming out of the vehicle. Patient was not noted to be having any episodes of loss of consciousness, patient was not complaining of any neck pain or any back pain but she was complaining of right ankle pain. She reported to EMS that she fell 3 hours prior to that and she continued to set aside because no one was caring for her. Patient apparently is homeless and lives in her van. She also has a history of chronic lower back pain. Patient in the ER was examined and was diagnosed with cellulitis of the right lower extremity. Upon my examination the patient at the bedside. She did have some tenderness to palpation of the ankle however ankle x-ray did not show any acute fractures. Patient was noted to have swelling of the bilateral lower extremities and mild redness however did not look like a full-blown cellulitis. Patient in the emergency department was not noted to have a fever and had a normal white blood cell count. She does appear slightly confused on examination, and she does appear clinically dry. She reports poor appetite Hospital Course Patient was admitted, seen by licensed social worker and started antibiotics for UTI. Patient also worked with physical therapy. She did have some bruising in her right foot, underwent imaging studies that were done for fractures. Over the course of her hospital stay her altered mental status symptoms improved as well, she continued her lactulose. Her urinary tract infection subsided. She was able to ambulate with assistance, tolerated p.o. diet. She will be going to half-way facility today in improved condition. See printed medical reconciliation sheet for full list of discharge medications. Home Meds Active Scripts Empagliflozin (Jardiance) 10 Mg Tablet, 10 MG PO DAILY for 15 Days, TAB Prov:BENNY KNIGHT MD 07/31/18 Sitagliptin* (Januvia*) 100 Mg Tablet, 100 MG PO DAILY, #15 TAB Prov:BENNY KNIGHT MD 07/31/18 Magnesium Oxide* (Mag-Oxide*) 400 Mg Tablet, 400 MG PO BID, #60 TAB Prov:JAMARI ALVARADO S. 07/28/18 Spironolactone* (Aldactone*) 100 Mg Tablet, 100 MG PO DAILY, #60 TAB 3 [facility] 07/28/18 Furosemide* (Lasix*) 40 Mg Tablet, 40 MG PO DAILY, #30 TAB 3 Refills [facility]. 07/28/18 Sertraline Hcl* (Zoloft*) 100 Mg Tablet, 100 MG PO DAILY, #30 TAB 1 Refill from [place] Prov:JENNYJAMARI S. 07/28/18 Pantoprazole* (Protonix*) 40 Mg Tablet.dr, 40 MG PO DAILY, #30 TAB 1 Refill From [facility] Prov:COJAMARI S. 07/28/18 Montelukast Sodium* (Singulair*) 10 Mg Tablet, 10 MG PO QHS, #30 TAB 3 [facility]ills [facility] 07/28/18 Reported Medications [Admelog] No Conflict Check, 1-15 UNITS SUBCUTANE AC MEALS 07/31/18 Gabapentin* (Gabapentin*) 100 Mg Capsule, 100 MG PO DAILY, #90 CAP 07/26/18 Hydrocodone/Acetaminophen ([place] 5-325 Tablet) 1 Each Tablet, 1 EACH PO Q6 PRN for prn, TAB FROM [facility] 05/28/18 Primary Care Provider Care Physician No Primary Time spent on discharge: > 30 minutes Pending Labs Laboratory Tests Test 08/27/18 17:32 08/27/18 20:54 08/28/18 02:10 08/28/18 08:44 Bedside 180 289 211 221 Glucose mg/dL (70-220) mg/dL (70-220) mg/dL (70-220) mg/dL (70-220) Test 08/28/18 12:09 Bedside 218 Glucose mg/dL (70-220) JAMARI ALVARADO Aug 28, 2018 16:25
[2018-08-28 20:05] VITALS: BP 139/66; PULSE 83; RESP 19
== END 2018-08-28 20:55 | DRG 689 ==
LOC: E/R 22:15 → PP2 08-21 00:59 → OBSVTOIN 08-21 10:10
PROVIDERS: ADMIT Family Medicine; ATTEND Hospitalist
DX: N39.0 Urinary tract infection, site not specified (principal); G92 Toxic encephalopathy; L03.115 Cellulitis of right lower limb; J90 Pleural effusion, not elsewhere classified; Z68.41 Body mass index [BMI] 40.0-44.9, adult; K70.30 Alcoholic cirrhosis of liver without ascites; B19.20 Unspecified viral hepatitis C without hepatic coma; E11.9 Type 2 diabetes mellitus without complications; E66.01 Morbid (severe) obesity due to excess calories; F17.200 Nicotine dependence, unspecified, uncomplicated; F32.9 Major depressive disorder, single episode, unspecified; M25.571 Pain in right ankle and joints of right foot; Z71.3 Dietary counseling and surveillance; Z59.0 Homelessness; Z79.84 Long term (current) use of oral hypoglycemic drugs
CPT/HCPCS: 36415; 36600; 70450; 71045; 71250; 71275; 73630; 80048; 80053; 81001; 82140; 82803; 82962; 83036; 83690; 83735; 84100; 85025; 85378; 85610; 85730; 87040; 87081; 93970; 96374; 96375; 97116; 97162; 97530; G0378; J0696; J1815; J1940; J2270; J2405; J2543; J3475; J7040; P9047; Q9967

== ENCOUNTER 2018-10-22 22:40 | Inpatient (IN) | payer OTHER ==
[~2018-10-22] VITALS: Ht 170.2 cm; Wt 120.6 kg
[~2018-10-22 22:40] MED LIST changes: -ADMELOG SUBCUTANE; -EMPA10TA PO; -FURO-109 PO; -GABA100C14 PO; -MAGN400T27 PO; -MONT10TA21 PO; -SITA100T11 PO
[2018-10-23] MEDS ORDERED: IPRATROPIUM (NEB) 0.5 MG/2.5 ML AMP NEB STA (00:49)
[2018-10-23] MEDS ORDERED: SODIUM CHLORIDE 0.9% 1L BAG IV* STA ×2 (00:49→02:26)
[2018-10-23] MEDS ORDERED: ALBUTEROL 0.083% (NEB) 2.5 MG/3 ML AMP NEB STA (00:49)
[2018-10-23] MEDS ORDERED: PIPER-TAZO 3.375 GM IV (PMX) 100 ML IVPB STA (02:26)
[2018-10-23] MEDS ORDERED: metroNIDAZOLE 500 MG/NS (PMX) 100 ML IVPB STA (02:26)
--- NOTE | 2018-10-23 05:50 | ERD ---
ER Documentation Chief Complaint Chief Complaint shortness of breath x 1 day HPI Is a 58-year-old female brought herself in saying she is felt short of breath weak for the past day. She had diarrhea and urgency frequency of urination as well. Denies any sick contacts. Denies any other current complaints. Code sepsis called immediately. Patient is a very poor historian. History is limited ROS All systems reviewed and are negative except as per history of present illness. Medications Home Meds Discontinued Reported Medications Hydrocodone/Acetaminophen ([place] 5-325 Tablet) 1 Each Tablet, 1 EACH PO Q6 PRN for prn, TAB FROM [facility] 05/28/18 Discontinued Scripts Spironolactone* (Aldactone*) 100 Mg Tablet, 100 MG PO DAILY, #60 TAB 3 Refills Prov:JAMARI ALVARADO S. 07/28/18 Sertraline Hcl* (Zoloft*) 100 Mg Tablet, 100 MG PO DAILY, #30 TAB 1 Refill from [place] Prov:JAMARI ALVARADO S. 07/28/18 Pantoprazole* (Protonix*) 40 Mg Tablet.dr, 40 MG PO DAILY, #30 TAB 1 Refill From [facility] Prov:KATIEJAMARI S. 07/28/18 Allergies Allergies: Coded Allergies: vancomycin (Unverified Allergy, Intermediate, 10/23/18) PER REPORT ibuprofen (Unverified Adverse Reaction, Mild, SICK TO HER STOMACH, 10/23/18) PMhx/Soc History of Surgery: Yes (MRSA R Index finer 1988/ Tibial replacement of the Left leg with metal/ ) Anesthesia Reaction: No Hx Neurological Disorder: No Hx Respiratory Disorders: Yes (COPD/Asthma/Bronchitis) Hx Cardiac Disorders: No Hx Psychiatric Problems: Yes (Depression) Hx Miscellaneous Medical Probl: Yes (LIVER CIRRHOSIS, DM, HEP C) Hx Alcohol Use: No (Pt denies) Hx Substance Use: No (Pt denies) Hx Tobacco Use: Yes Smoking Status: Current every day smoker Physical Exam Vitals Vital Signs Date Temp Pulse Resp B/P (MAP) Pulse Ox O2 O2 Flow FiO2 Time Delivery Rate 10/23/18 101 22 97 21 01:05 10/22/18 98.9 123 18 161/93 95 22:43 (115) Physical Exam Const: No acute distress Head: Atraumatic Eyes: Normal Conjunctiva ENT: Normal External Ears, Nose and Mouth. Neck: Full range of motion. No meningismus. Resp: Clear to auscultation bilaterally Cardio: Regular rate and rhythm, no murmurs Abd: Soft, non tender, non distended. Normal bowel sounds Skin: No petechiae or rashes Back: No midline or flank tenderness Ext: No cyanosis, or edema Neur: Awake and alert Psych: Normal Mood and Affect Result Diagram: 10/23/18 0208 10/23/18 0208 Results 24 hrs Laboratory Tests Test 10/23/18 02:05 10/23/18 02:08 10/23/18 04:30 POC Venous Lactate 4.1 mmol/L White Blood Count 4.8 10^3/ul Red Blood Count 4.04 10^6/ul Hemoglobin 11.6 g/dl Hematocrit 36.4 % Mean Corpuscular Volume 90.1 fl Mean Corpuscular Hemoglobin 28.7 pg Mean Corpuscular Hemoglobin Concent 31.9 g/dl Red Cell Distribution Width 15.3 % Platelet Count 77 10^3/UL Mean Platelet Volume 10.1 fl Immature Granulocytes % 0.800 % Neutrophils % 71.5 % Lymphocytes % 19.0 % Monocytes % 7.9 % Eosinophils % 0.0 % Basophils % 0.8 % Nucleated Red Blood Cells % 0.0 /100WBC Immature Granulocytes # 0.040 10^3/ul Neutrophils # 3.4 10^3/ul Lymphocytes # 0.9 10^3/ul Monocytes # 0.4 10^3/ul Eosinophils # 0.0 10^3/ul Basophils # 0.0 10^3/ul Nucleated Red Blood Cells # 0.0 10^3/ul Prothrombin Time 15.9 Sec Prothrombin Time Ratio 1.2 INR International Normalized Ratio 1.26 Activated Partial Thromboplast Time 32.2 Sec Sodium Level 139 mmol/L Potassium Level 4.3 mmol/L Chloride Level 106 mmol/L Carbon Dioxide Level 28 mmol/L Anion Gap 5 Blood Urea Nitrogen 11 mg/dl Creatinine 0.72 mg/dl Est Glomerular Filtrat Rate mL/min > 60 mL/min Glucose Level 466 mg/dl Calcium Level 8.5 mg/dl Total Bilirubin 2.4 mg/dl Direct Bilirubin 0.00 mg/dl Indirect Bilirubin 2.4 mg/dl Aspartate Amino Transf (AST/SGOT) 80 IU/L Alanine Aminotransferase (ALT/SGPT) 42 IU/L Alkaline Phosphatase 149 IU/L Troponin I < 0.012 ng/ml Total Protein 7.4 g/dl Albumin 2.5 g/dl Globulin 4.90 g/dl Albumin/Globulin Ratio 0.51 Lactic Acid Level 3.2 mmol/L Current Medications Medications Dose Sig/Shikha Start Time Status Last (Trade) Ordered Route PRN Stop Time Admin Dose Reason Admin Sodium 1,850 ml BOLUS OVER 2 10/23/18 DC 10/23/18 Chloride HOURS STAT 00:49 10/23/18 02:20 (NS) IV* 00:51 Albuterol 5 mg ONCE STAT 10/23/18 DC 10/23/18 (Proventil NEB 00:49 10/23/18 01:04 0.083% (Neb)) 00:51 Ipratropium 0.5 mg ONCE STAT 10/23/18 DC 10/23/18 [place] NEB 00:49 10/23/18 01:04 (Atrovent 00:51 0.02% (Neb)) Sodium 1,850 ml BOLUS OVER 2 10/23/18 DC 10/23/18 Chloride HOURS STAT 02:26 10/23/18 02:57 (NS) IV* 02:28 Piperacillin 100 ml @ ONCE STAT 10/23/18 DC 10/23/18 Sod/ 200 mls/hr IVPB 02:26 10/23/18 03:11 Tazobactam 02:55 Sod 100 ml @ ONCE STAT 10/23/18 DC 10/23/18 Metronidazole 100 mls/hr IVPB 02:26 10/23/18 03:42 03:25 Procedures/MDM EKG: Rate/Rhythm: [Normal Sinus Rhythm] QRS, ST, T-waves: [No changes consistent w/ acute ischemia] Impression: [No evidence of ischemia or arrhythmia] Chest X-ray 1V Interpreted by me: Soft Tissue: No acute abnormalities Bones: No acute abnormalities Mediastinum/Cardiac Silhouette/Lungs: [No acute abnormalities] Patient's infectious symptoms have not stabilized and the patient is at risk of rapid decompensation. The patient will be admitted for careful hydration, antibiotic therapy, and infectious source control. Severe Sepsis Assessment: Infectious Source: [pyleonephritis] End organ damage indicated by: [Lactate > 2.0 mmol/L Hypotension( SBP < 90 or >40 mmHG drop or MAP < 65) Acute Resp Failure (sat < 92% w/o oxygen) [place] > 2.0 INR > 1.5 Plt < 100 Bili > 2] Severe Sepsis Managment: Blood Cultures X 2 before broad spectrum antibiotics initiated within 3 hours of recognition. Sepsis recognized in 2:05 AM 30 ml/kg NS bolus Completed Initial Lactate: 4.1 Repeat Lactate pending Critical Care: Time: 45 minutes, independent of any separately billable procedural time Treatments/Evaluations: Emergent fluid management, while maintaining close respiratory support. Immediate broad spectrum antibiotic therapy. Simultaneous assessment for possible sources in order to direct therapy. Consideration for invasive and chemical support to prevent respiratory or cardiac collapse. Septic Shock Assessment (1 hour post 30 ml/kg fluid bolus): Hypotension (SBP < 90 or 40 mmHg drop, MAP < 65): [No] Lactic acid > 4.0 [No] Perfusion Reassessment for Septic Shock: Vital signs stable Heart Exam: [Tachycardic] Lung Exam: [No Crackles] Capillary Refill: [Delayed] Peripheral Pulses: [Radially present] Skin: [Mottled, pale] Accepting Care Team: Current data and ongoing care discussed. Time: 4:40 AM Primary Provider: Hospitalist Consulting: Deferred to inpatient team Outstanding Data: none Departure Diagnosis: Primary Impression: Sepsis Sepsis type: sepsis due to unspecified organism Qualified Codes: A41.9 - Sepsis, unspecified organism Condition: Serious KALYAN HUTCHINS October 23, 2018 05:50
[2018-10-23] MEDS ORDERED: INSULIN REGULAR, HUMAN 100 UNIT/1 ML 3ML VIAL IV ONE (06:00)
[2018-10-23 07:15] VITALS: BP 131/61; PULSE 109; RESP 19
[2018-10-23 07:25] VITALS: BP 87/42; PULSE 115
[2018-10-23] MEDS ORDERED: LEVOFLOXACIN 500MG/D5W (PMX) 100 ML IVPB SCH (07:30)
[2018-10-23] MEDS ORDERED: ONDANSETRON 4 MG INJ IV PRN (07:30)
[2018-10-23] MEDS ORDERED: ALBUTEROL/IPRATROPIUM (NEB) 3 ML AMP HHN PRN (07:30)
[2018-10-23] MEDS ORDERED: NACL 0.9% 3 ML SYG IV SCH ×2 (07:30→09:30)
[2018-10-23] MEDS ORDERED: ACETAMINOPHEN 325 MG TAB PO PRN ×2 (07:30→09:30)
[2018-10-23 07:55] VITALS: Ht 170.2 cm; Wt 120.6 kg
[2018-10-23 08:37] VITALS: BP 136/64; PULSE 103; RESP 18
[2018-10-23] MEDS ORDERED: HEPARIN 5,000 UNIT/1 ML VIAL SC SCH (09:00)
[2018-10-23] MEDS ORDERED: GLUCOSE GEL 15 GRAM TUBE BUCCAL PRN (09:30)
[2018-10-23] MEDS ORDERED: DEXTROSE 50% 50 ML SYRINGE IV PRN ×2 (09:30)
[2018-10-23] MEDS ORDERED: GLUCAGON 1 MG INJ IM PRN (09:30)
[2018-10-23] MEDS ORDERED: GLUCOSE GEL 15 GRAM TUBE PO PRN ×2 (09:30)
--- NOTE | 2018-10-23 09:52 | CONS ---
Assessment/Plan Assessment/Plan Hospital Course (Demo Recall) Summary Assessment and Plan: Assessment: Sepsis Diarrhea- stool studies pending Cirrhosis -Thrombocytopenia -Coagulopathy, mild Splenomegaly Imaging findings suggestive of portal HTN Elevated LFTs with indirect hyperbilirubinemia Normocytic anemia DM History of hepatitis C, per patient untreated Cholelithiasis Right pleural effusion with consolidation atelectasis although infiltrate cannot be ruled out Plan: Monitor LFTs if they do not improve will order MRCP to rule out CBD obstruction versus hepatocellular disease process Stool studies currently pending UA We will start Xifaxan 550 mg p.o. twice daily. We will not start lactulose given patient's diarrhea Additionally we will check hepatitis B and confirm positive hepatitis C with RNA level Patient has been started on antibiotics Zosyn/metronidazole We will obtain abdominal ultrasound to assess for ascites if positive for asc ites we will move forward paracentesis to rule out SBP- not noted in CT Further recommendations based on clinical course If diarrhea does not improve with negstool studies pt may require endoscopic ev aluation we will also proceed with EGD at that time as pt has never had an EGD and has the dx of liver cirrhosis Patient seen in collaboration with Dr. Steven CC: SAV STEVEN MD ; Consultation Date/Type/Reason Admit Date/Time October 23, 2018 at 04:44 Date of Consultation: October 23, 2018 Type of Consult GI Date/Time of Note DATE: 10/23/18 TIME: 09:34 Hx of Present Illness This a 58-year-old female with PMH of hepatitis C, per patient untreated, and cirrhosis who came in to the ER with c/o SOB, diarrhea, dysuria, and weakness. Currently patient is lethargic she is able to answer some questions but overall poor historian. According to records code sepsis was called after evaluation by ER doctor. She has been started on Zosyn labs were obtained WBC within normal limits patient noted to have thrombocytopenia as well as indirect hyperbilirubinemia and elevated LFTs she has been consulted for further evaluation. CT abdomen pelvis without contrast was obtained showing findings suggestive of cirrhosis without focal hepatic lesions, mild to moderate spl enomegaly without focal splenic lesions or varices in the left upper consistent with pleural venous hypertension, multiple calcified gallstones with probable mild gallbladder wall thickening. No calcified urinary calculi or obstructive uropathy. Right pleural effusion and basilar consolidation may be due to atelectasis though underlying infiltrate cannot be excluded edition a chest x- ray was completed again noted small to moderate right pleural effusion and right basilar consolidation that may be due to atelectasis and scarring however again stated infiltrate cannot be excluded. No congestive heart failure. Studies have been ordered and are currently pending we will additionally order UA and abdominal ultrasound to assess for ascites if positive for ascites we will move for paracentesis for ascitic fluid work-up rule out SBP. Will order hepatitis panel to confirm hepatitis C with RNA and to rule out hepatitis B. Patient states she has never had an EGD or colonoscopy. Review of Systems: A 12 system, review was conducted and is negative except as noted in the HPI or here. Past Medical History Home Meds Discontinued Reported Medications Hydrocodone/Acetaminophen ([place] 5-325 Tablet) 1 Each Tablet, 1 EACH PO Q6 PRN for prn, TAB FROM [facility] 05/28/18 Discontinued Scripts Spironolactone* (Aldactone*) 100 Mg Tablet, 100 MG PO DAILY, #60 TAB 3 Refills Prov:JAMARI ALVARADO S. 07/28/18 Sertraline Hcl* (Zoloft*) 100 Mg Tablet, 100 MG PO DAILY, #30 TAB 1 Refill from [facility] Prov:JAMARI ALVARADO S. 07/28/18 Pantoprazole* (Protonix*) 40 Mg Tablet.dr, 40 MG PO DAILY, #30 TAB 1 Refill From [facility] Prov:JAMARI ALVARADO S. 07/28/18 Medications Current Medications Albuterol/ Ipratropium (Duoneb) 3 ml Q2H RESP THERAPY PRN HHN SHORTNESS OF BREATH; Start 10/23/18 at 07:30 Piperacillin Sod/ Tazobactam Sod 100 ml @ 200 mls/hr Q6 IVPB ; Start 10/23/18 at 12:00 IV Flush (NS 3 ml) 3 ml PER PROTOCOL IV ; Start 10/23/18 at 09:30 Ondansetron HCl (Zofran Inj) 4 mg Q6H PRN IV NAUSEA/VOMITING; Start 10/23/18 at 09:30 Acetaminophen (Tylenol Tab) 650 mg Q8H PRN PO .PAIN 1-3 OR TEMP; Start 10/23/18 at 09:30 Famotidine (Pepcid Iv) 20 mg Q12 IV ; Start 10/23/18 at 21:00 Miscellaneous Information (* Miscellaneous Pharmacy Order) Discontinue current oral sulfonylur... ONCE ONCE XX ; Start 10/23/18 at 09:30; Stop 10/23/18 at 09:31 Diagnostic Test (Pha) (Accu-Chek) 1 ea 02 XX ; Start 10/24/18 at 02:00 Miscellaneous Information (* Miscellaneous Pharmacy Order) HYPOGLYCEMIA PROTOCOL w... ONCE ONCE XX ; Start 10/23/18 at 09:30; Stop 10/23/18 at 09:31 Insulin Aspart (Novolog Insulin Pen) NOVOLOG *MILD* ALGORITHM WITH MEALS BEDTIM E SC ; Start 10/23/18 at 12:00 Miscellaneous Information (* Miscellaneous Pharmacy Order) Discontinue all previ... ONCE ONCE XX ; Start 10/23/18 at 09:30; Stop 10/23/18 at 09:31 Miscellaneous Information 1 ea NOTE XX ; Start 10/23/18 at 09:30 Glucose (Glutose) 15 gm Q15M PRN PO DECREASED GLUCOSE; Start 10/23/18 at 09:30 Glucose (Glutose) 22.5 gm Q15M PRN PO DECREASED GLUCOSE; Start 10/23/18 at 09:30 Dextrose (D50w Syringe) 25 ml Q15M PRN IV DECREASED GLUCOSE; Start 10/23/18 at 09:30 Dextrose (D50w Syringe) 50 ml Q15M PRN IV DECREASED GLUCOSE; Start 10/23/18 at 09:30 Glucagon (Glucagen) 1 mg Q15M PRN IM DECREASED GLUCOSE; Start 10/23/18 at 09:30 Glucose (Glutose) 15 gm Q15M PRN BUCCAL DECREASED GLUCOSE; Start 10/23/18 at 09:30 Allergies: Coded Allergies: vancomycin (Unverified Allergy, Intermediate, 10/23/18) PER REPORT ibuprofen (Unverified Adverse Reaction, Mild, SICK TO HER STOMACH, 10/23/18) Past Surgical History Past Surgical Hx: other Social History Smoking Status: Current every day smoker Exam/Review of Systems Exam Vitals Vital Signs Date Temp Pulse Resp B/P (MAP) Pulse Ox O2 O2 Flow FiO2 Time Delivery Rate 10/23/18 97.6 103 18 136/64 94 08:37 (88) 10/23/18 Room Air 06:12 10/23/18 21 01:05 Exam PHYSICAL EXAMINATION: GENERAL: Alert & oriented, lethargic SKIN: No lesions HEAD: Normocephalic, atraumatic, no tenderness. EYES: Pupils equal reactive to light, no discharge. EARS/NOSE AND THROAT: Ears normal, nose normal,. NECK: Supple, no masses. CHEST: Inspection within normal limits. CARDIOVASCULAR: Heart: Regular rate and rhythm, tachycardia RESPIRATORY: Lungs clear to auscultation GASTROINTESTINAL AND LIVER: Abdomen: Soft, non tenderness, obese, no hernias, no masses, no organomegaly, no ascites, no guarding, no rebound tenderness, normoactive bowel sounds. Rectal: Deferred. EXTREMITIES: BLE edema. Results Result Diagram: 10/23/18 0208 10/23/18 0208 Results 24hrs Laboratory Tests Test 10/23/18 02:05 10/23/18 02:08 10/23/18 04:30 10/23/18 06:03 POC Venous Lactate 4.1 *H White Blood Count 4.8 # Red Blood Count 4.04 L Hemoglobin 11.6 L Hematocrit 36.4 #L Mean Corpuscular Volume 90.1 Mean Corpuscular 28.7 L Hemoglobin Mean Corpuscular 31.9 L Hemoglobin Concent Red Cell Distribution 15.3 H Width Platelet Count 77 #L Mean Platelet Volume 10.1 Immature Granulocytes % 0.800 H Neutrophils % 71.5 Lymphocytes % 19.0 Monocytes % 7.9 Eosinophils % 0.0 Basophils % 0.8 Nucleated Red Blood 0.0 Cells % Immature Granulocytes # 0.040 H Neutrophils # 3.4 Lymphocytes # 0.9 Monocytes # 0.4 Eosinophils # 0.0 Basophils # 0.0 Nucleated Red Blood 0.0 Cells # Prothrombin Time 15.9 H Prothrombin Time Ratio 1.2 INR International 1.26 Normalized Ratio Activated 32.2 Partial Thromboplast Time Sodium Level 139 Potassium Level 4.3 Chloride Level 106 Carbon Dioxide Level 28 Anion Gap 5 Blood Urea Nitrogen 11 Creatinine 0.72 Est Glomerular Filtrat > 60 Rate mL/min Glucose Level 466 *H Calcium Level 8.5 Total Bilirubin 2.4 H Direct Bilirubin 0.00 Indirect Bilirubin 2.4 H Aspartate Amino 80 H Transf (AST/SGOT) Alanine 42 Aminotransferase (ALT/SG PT) Alkaline Phosphatase 149 H Troponin I < 0.012 Total Protein 7.4 Albumin 2.5 L Globulin 4.90 H Albumin/Globulin Ratio 0.51 Lactic Acid Level 3.2 *H Bedside Glucose 311 H Test 10/23/18 07:10 10/23/18 08:23 10/23/18 08:24 Bedside Glucose 329 H 282 H Lactic Acid Level 1.9 Medications Medication Current Medications Albuterol/ Ipratropium (Duoneb) 3 ml Q2H RESP THERAPY PRN HHN SHORTNESS OF BREATH; Start 10/23/18 at 07:30 Piperacillin Sod/ Tazobactam Sod 100 ml @ 200 mls/hr Q6 IVPB ; Start 10/23/18 at 12:00 IV Flush (NS 3 ml) 3 ml PER PROTOCOL IV ; Start 10/23/18 at 09:30 Ondansetron HCl (Zofran Inj) 4 mg Q6H PRN IV NAUSEA/VOMITING; Start 10/23/18 at 09:30 Acetaminophen (Tylenol Tab) 650 mg Q8H PRN PO .PAIN 1-3 OR TEMP; Start 10/23/18 at 09:30 Famotidine (Pepcid Iv) 20 mg Q12 IV ; Start 10/23/18 at 21:00 Miscellaneous Information (* Miscellaneous Pharmacy Order) Discontinue current oral sulfonylur... ONCE ONCE XX ; Start 10/23/18 at 09:30; Stop 10/23/18 at 09:31 Diagnostic Test (Pha) (Accu-Chek) 1 ea 02 XX ; Start 10/24/18 at 02:00 Miscellaneous Information (* Miscellaneous Pharmacy Order) HYPOGLYCEMIA PROTOCOL w... ONCE ONCE XX ; Start 10/23/18 at 09:30; Stop 10/23/18 at 09:31 Insulin Aspart (Novolog Insulin Pen) NOVOLOG *MILD* ALGORITHM WITH MEALS BEDTIME SC ; Start 10/23/18 at 12:00 Miscellaneous Information (* Miscellaneous Pharmacy Order) Discontinue all previ... ONCE ONCE XX ; Start 10/23/18 at 09:30; Stop 10/23/18 at 09:31 Miscellaneous Information 1 ea NOTE XX ; Start 10/23/18 at 09:30 Glucose (Glutose) 15 gm Q15M PRN PO DECREASED GLUCOSE; Start 10/23/18 at 09:30 Glucose (Glutose) 22.5 gm Q15M PRN PO DECREASED GLUCOSE; Start 10/23/18 at 09:30 Dextrose (D50w Syringe) 25 ml Q15M PRN IV DECREASED GLUCOSE; Start 10/23/18 at 09:30 Dextrose (D50w Syringe) 50 ml Q15M PRN IV DECREASED GLUCOSE; Start 10/23/18 at 09:30 Glucagon (Glucagen) 1 mg Q15M PRN IM DECREASED GLUCOSE; Start 10/23/18 at 09:30 Glucose (Glutose) 15 gm Q15M PRN BUCCAL DECREASED GLUCOSE; Start 10/23/18 at 09:30 TEJAL BOWMAN October 23, 2018 09:44
--- NOTE | 2018-10-23 10:35 | HP ---
Date/Time of Note Date/Time of Note DATE: 10/23/18 TIME: 10:17 Assessment/Plan VTE Prophylaxis SCD applied (from Nsg): Yes SCD contraindicated: other Pharmacological prophylaxis: NA/contraindicated Pharm contraindication: liver dx, anticoag not tolerated Lines/Catheters IV C[facility]ter Type (from [facility]): Saline Lock Assessment/Plan Hospital Course SUBJECTIVE: Lying in bed, lethargic/slightly confused. Complaining of urinary/bowel incontinence and shortness of breath/generalized abdominal pain. OBJECTIVE: Vital signs-see below PHYSICAL EXAM: Constitutional: Morbidly obese female,not in acute distress. HEENT: Head atraumatic and normocephalic. Eyes: Extraocular muscles intact. Ani cteric sclerae. Pupils equal bilaterally, reactive to light. NECK: Supple without lymph node. CHEST: Coarse breath sounds w/mild expiratory wheeze greater on right side. HEART: S1, S2. Regular rate and rhythm. ABDOMEN: Tenderness to all 4 quadrants, no rebound tenderness. Bowel sounds were present. EXTREMITIES: Diffuse edema bilateral lower extremities. Chronic venous stasis changes appreciated. No cyanosis or clubbing appreciated. NEUROLOGIC: Alert and oriented x3. No focal deficit. No sensory deficit. PSYCHOSOCIAL: No signs of depression. INTEGUMENTARY: No open wounds. ASSESSMENT AND PLAN:58-year-old morbidly obese homeless female with a history of untreated hepatitis C, liver cirrhosis/ascites with history of paracentesis, thrombocytopenia, pleural effusion with history of thoracentesis,dm2, anemia, and noncompliance here with worsening shortness of breath, abdominal pain, worsening confusion, incontinence, nonbloody diarrhea x2 days duration... Sepsis -Most suspect source: Intra-abdominal/respiratory -IV Zosyn -Cultures/stool studies Nonbloody diarrhea/abdominal pain -Rule out colitis versus other -C. difficile/stool studies -GI consult R pleural effusion -This appears to be a chronic problem and was ruled out for malignancy with previous admissions -Superimposed pneumonia cannot be excluded at this time and will empirically treat for that. -Obtain chest ultrasound to assess amount of fluids for the need for thora -Continue diuretics Acute on chronic toxic encephalopathy: - Likely due to sepsis. - Continue lactulose for past history of HE. -Drug toxicology Liver cirrhosis w/sequela of splenomegaly/thrombocytopenia/portal HTN - Secondary to hepatitis C and alcohol. - Resume home lasix, spironolactone - Ammonia detoxicant DMII: -With uncontrolled hyperglycemia likely aggravated by underlying sepsis - Basal/bolus Untreated hepatitis C -Outpatient GI follow-up Cholelithiasis -Mild gallbladder wall thickening noted in CT. Will follow up with a complete HIDA scan to assess the whole biliary system. Transaminase elevation with hyperbilirubinemia likely with underlying liver disease/hep C -Management per GI. Will also follow-up HIDA. Chronic lymphedema -Elevation of affected extremities -Venous duplex to rule out DVT Chronic anemia -Stable H&H. Monitor. Homelessness -Patient was previously placed in a longterm where she went AMA back to the streets. -SW Morbid obesity with BMI 41.6. -Lifestyle changes advised. Noncompliance -Councelled DVT prophylaxis: SCDs, chemical anti-correlation contraindicated with abnormal liver function/coagulopathies. PUD prophylaxis: Pepcid Rest of the management depend on hospital course. Approximately 60 m spent on this history and physical. Patient was seen in collaboration with Dr. Gamez. Result Diagram: 10/23/18 0208 10/23/18 0208 Results 24hrs Laboratory Tests Test 10/23/18 02:05 10/23/18 02:08 10/23/18 04:30 10/23/18 06:00 POC Venous Lactate 4.1 *H White Blood Count 4.8 # Red Blood Count 4.04 L Hemoglobin 11.6 L Hematocrit 36.4 #L Mean Corpuscular Volume 90.1 Mean Corpuscular 28.7 L Hemoglobin Mean Corpuscular 31.9 L Hemoglobin Concent Red Cell Distribution 15.3 H Width Platelet Count 77 #L Mean Platelet Volume 10.1 Immature Granulocytes % 0.800 H Neutrophils % 71.5 Lymphocytes % 19.0 Monocytes % 7.9 Eosinophils % 0.0 Basophils % 0.8 Nucleated Red Blood 0.0 Cells % Immature Granulocytes # 0.040 H Neutrophils # 3.4 Lymphocytes # 0.9 Monocytes # 0.4 Eosinophils # 0.0 Basophils # 0.0 Nucleated Red Blood 0.0 Cells # Prothrombin Time 15.9 H Prothrombin Time Ratio 1.2 INR International 1.26 Normalized Ratio Activated 32.2 Partial Thromboplast Time Sodium Level 139 Potassium Level 4.3 Chloride Level 106 Carbon Dioxide Level 28 Anion Gap 5 Blood Urea Nitrogen 11 Creatinine 0.72 Est Glomerular Filtrat > 60 Rate mL/min Glucose Level 466 *H Calcium Level 8.5 Total Bilirubin 2.4 H Direct Bilirubin 0.00 Indirect Bilirubin 2.4 H Aspartate Amino 80 H Transf (AST/SGOT) Alanine 42 Aminotransferase (ALT/SG PT) Alkaline Phosphatase 149 H Troponin I < 0.012 Total Protein 7.4 Albumin 2.5 L Globulin 4.90 H Albumin/Globulin Ratio 0.51 Lactic Acid Level 3.2 *H Hemoglobin A1c 8.2 H Test 10/23/18 06:03 10/23/18 07:10 10/23/18 08:23 10/23/18 08:24 Bedside Glucose 311 H 329 H 282 H Lactic Acid Level 1.9 HPI/ROS Admit Date/Time Admit Date/Time October 23, 2018 at 04:44 Hx of Present Illness This is a 58-year-old morbidly obese homeless female with a history of untreated hepatitis C, liver cirrhosis/ascites with history of paracentesis, thrombocytopenia, pleural effusion with history of thoracentesis,dm2, anemia, here with worsening shortness of breath, incontinence, nonbloody diarrhea x2 days duration. She also admitted to generalized abdominal pain. She has been also feeling more confused and altered recently. Patient was recently discharged from [facility] [place] after she was treated for UTI and was sent to a longterm where she went AMA back to [facility]. Patient denied f ever, chills. Patient denied chest pain, palpitation, nausea, vomiting, dizziness, headache, loss of consciousness, or other constitutional symptoms. In the emergency room, patient was noted with initial lactic acid 4.1, blood sugar 466, abnormal liver function test, hemoglobin 11.6, hematocrit 36.4 and platelets 77. Vital signs with tachycardia with pulse rate 123, blood pressure 161/93 which then dropped to 87/42. Stable oxygen saturation. A CAT scan of the abdomen and pelvis without contrast showed cirrhosis with splenomegaly, calcified gallstones with mild gallbladder wall thickening, right pleural effusion with basilar consolidation. Patient was given Zosyn in the emergency room, IV fluid bolus and admitted for further evaluation. ROS A 12 point review of system was assessed and is negative other than what is mentioned in the HPI. PMH/Family/Social Past Medical History See HPI Medications Current Medications Albuterol/ Ipratropium (Duoneb) 3 ml Q2H RESP THERAPY PRN HHN SHORTNESS OF BREATH; Start 10/23/18 at 07:30 Piperacillin Sod/ Tazobactam Sod 100 ml @ 200 mls/hr Q6 IVPB ; Start 10/23/18 at 12:00 IV Flush (NS 3 ml) 3 ml PER PROTOCOL IV ; Start 10/23/18 at 09:30 Ondansetron HCl (Zofran Inj) 4 mg Q6H PRN IV NAUSEA/VOMITING; Start 10/23/18 at 09:30 Acetaminophen (Tylenol Tab) 650 mg Q8H PRN PO .PAIN 1-3 OR TEMP; Start 10/23/18 at 09:30 Famotidine (Pepcid Iv) 20 mg Q12 IV ; Start 10/23/18 at 21:00 Diagnostic Test (Pha) (Accu-Chek) 1 ea 02 XX ; Start 10/24/18 at 02:00 Insulin Aspart (Novolog Insulin Pen) NOVOLOG *MILD* ALGORITHM WITH MEALS BEDTIME SC ; Start 10/23/18 at 12:00 Miscellaneous Information 1 ea NOTE XX ; Start 10/23/18 at 09:30 Glucose (Glutose) 15 gm Q15M PRN PO DECREASED GLUCOSE; Start 10/23/18 at 09:30 Glucose (Glutose) 22.5 gm Q15M PRN PO DECREASED GLUCOSE; Start 10/23/18 at 09:30 Dextrose (D50w Syringe) 25 ml Q15M PRN IV DECREASED GLUCOSE; Start 10/23/18 at 09:30 Dextrose (D50w Syringe) 50 ml Q15M PRN IV DECREASED GLUCOSE; Start 10/23/18 at 09:30 Glucagon (Glucagen) 1 mg Q15M PRN IM DECREASED GLUCOSE; Start 10/23/18 at 09:30 Glucose (Glutose) 15 gm Q15M PRN BUCCAL DECREASED GLUCOSE; Start 10/23/18 at 09:30 Rifaximin (Xifaxan) 550 mg BID PO ; Start 10/23/18 at 21:00 Coded Allergies: vancomycin (Unverified Allergy, Intermediate, 10/23/18) PER REPORT ibuprofen (Unverified Adverse Reaction, Mild, SICK TO HER STOMACH, 10/23/18) Past Surgical History See HPI Past Surgical Hx: other Family History Significant Family History: no pertinent family hx Social History History of tobacco/alcohol use Smoking Status: Current some day smoker Exam/Review of Systems Vital Signs Vitals Vital Signs Date Temp Pulse Resp B/P (MAP) Pulse Ox O2 O2 Flow FiO2 Time Delivery Rate 10/23/18 97.6 103 18 136/64 94 08:37 (88) 10/23/18 Room Air 06:12 10/23/18 21 01:05 CAT MARTÍNEZ NP October 23, 2018 10:32
[2018-10-23] MEDS ORDERED: LACTULOSE 30ML CUP PO PRN (11:00)
[2018-10-23] MEDS: INSULIN GLARGINE [LANTus] (100 UNITS/ML) SYG SC SCH (12:01)
[2018-10-23] MEDS: SPIRONOLACTONE 50 MG TAB PO SCH ×2 (12:01→17:04)
[2018-10-23] MEDS: INSULIN ASPART [NOVOLOG] 3 ML PEN SC SCH ×3 (12:01→20:44)
[2018-10-23 12:02] VITALS: BP 138/80
[2018-10-23] MEDS: PIPER-TAZO 3.375 GM IV (PMX) 100 ML IVPB SCH ×3 (12:02→23:06)
[2018-10-23] MEDS: FUROSEMIDE 40 MG INJ IV SCH (12:02)
[2018-10-23 18:42] VITALS: BP 122/60; PULSE 92; RESP 18
[2018-10-23 20:00] VITALS: BP 124/55; PULSE 92; RESP 18
[2018-10-23] MEDS: FAMOTIDINE 20 MG INJ IV SCH (20:37)
[2018-10-23] MEDS: RIFAXIMIN 550 MG TAB PO SCH (21:37)
[2018-10-23] MEDS ORDERED: KETOROLAC 30 MG INJ IV ONE (23:46)
[2018-10-24] MEDS: ACCU-CHEK XX SCH (01:36)
[2018-10-24 02:20] VITALS: BP 138/71; PULSE 90; RESP 18
[2018-10-24] MEDS: PIPER-TAZO 3.375 GM IV (PMX) 100 ML IVPB SCH ×3 (05:37→17:31)
[2018-10-24] MEDS: SPIRONOLACTONE 50 MG TAB PO SCH ×2 (05:38→17:26)
[2018-10-24 08:00] VITALS: BP 151/79; PULSE 94; RESP 18
[2018-10-24] MEDS: INSULIN ASPART [NOVOLOG] 3 ML PEN SC SCH ×6 (08:00→21:18)
[2018-10-24] MEDS: FAMOTIDINE 20 MG INJ IV SCH ×2 (08:57→21:13)
[2018-10-24] MEDS: RIFAXIMIN 550 MG TAB PO SCH ×2 (08:57→21:14)
[2018-10-24] MEDS: FUROSEMIDE 40 MG INJ IV SCH (08:57)
[2018-10-24] MEDS: INSULIN GLARGINE [LANTus] (100 UNITS/ML) SYG SC SCH (08:59)
--- NOTE | 2018-10-24 12:29 | PN ---
Date/Time of Note Date/Time of Note DATE: 10/24/18 TIME: 12:22 Assessment/Plan VTE Prophylaxis Risk score (from Ns)>0 risk: 3 SCD applied (from Ns): Yes Pharmacological prophylaxis: NA/contraindicated Pharm contraindication: liver dx Lines/Catheters [facility] Saline Lock Urinary Cath still in place: Yes Reason Cath still needed: other (indicate) Assessment/Plan Assessment/Plan Assessment: Sepsis Diarrhea- stool studies pending Cirrhosis -Thrombocytopenia -Coagulopathy, mild Splenomegaly Imaging findings suggestive of portal HTN Elevated LFTs with indirect hyperbilirubinemia Normocytic anemia DM History of hepatitis C, per patient untreated Cholelithiasis Right pleural effusion with consolidation atelectasis although infiltrate cannot be ruled out Plan: Monitor LFTs , bilirubin is trending down-monitor the need for MRCP HIDA scan was negative Stool studies currently pending UA Continue Xifaxan 550 mg p.o. twice daily. Patient was started on lactulose Hepatitis C RNA -pending Continue antibiotics Zosyn/metronidazole Ultrasound is negative for ascites Further recommendations based on clinical course EGD on Saturday to screen for esophageal varices Treatment of hepatitis C as an outpatient Patient seen in collaboration with Dr. Steven Subjective: Patient is complaining of right upper quadrant abdominal pain. She appears to be confused. Rectal tube was removed since diarrhea resolved. Patient was started on lactulose for ammonia level of 104. Bilirubin and LFTs are trending down. Continue observation. Exam PHYSICAL EXAMINATION: GENERAL: Alert & oriented, obese, lethargic SKIN: No lesions HEAD: Normocephalic, atraumatic, no tenderness. EYES: Pupils equal reactive to light, no discharge. EARS/NOSE AND THROAT: Ears normal, nose normal,. NECK: Supple, no masses. CHEST: Inspection within normal limits. CARDIOVASCULAR: Heart: Regular rate and rhythm, tachycardia RESPIRATORY: Lungs clear to auscultation GASTROINTESTINAL AND LIVER: Abdomen: Soft, right upper quadrant tenderness, obese, no hernias, no masses, no organomegaly, no ascites, no guarding, no rebound tenderness, normoactive bowel sounds. Rectal: Deferred. EXTREMITIES: BLE edema. Result Diagram: 10/24/18 0955 10/24/18 0955 Results 24hrs Laboratory Tests Test 10/23/18 17:05 10/23/18 17:39 10/23/18 18:30 10/23/18 20:42 Bedside Glucose 200 284 H Ammonia 82 H Urine Color YELLOW Urine Clarity CLEAR Urine pH 5.0 Urine Specific 1.013 [place] Urine Ketones NEGATIVE Urine Nitrite NEGATIVE Urine Bilirubin NEGATIVE Urine Urobilinogen 2+ H Urine Leukocyte TRACE A Esterase Urine Microscopic 11 H RBC Urine Microscopic 11 H WBC Urine Hemoglobin 2+ H Urine Glucose NEGATIVE Urine Total Protein NEGATIVE Urine Opiates Screen Negative Urine Barbiturates Negative Urine Amphetamines Positive Screen Urine Negative Benzodiazepines Screen Urine Cocaine Screen Negative Urine Cannabinoids Negative Test 10/24/18 00:24 10/24/18 08:31 10/24/18 09:48 10/24/18 09:54 Bedside Glucose 203 119 Hemoglobin A1c 8.3 H Ammonia 105 H Test 10/24/18 09:55 White Blood Count 2.7 #L Red Blood Count 3.59 L Hemoglobin 10.2 L Hematocrit 31.9 L Mean Corpuscular 88.9 Volume Mean Corpuscular 28.4 L Hemoglobin Mean Corpuscular 32.0 Hemoglobin Concent Red Cell 15.5 H Distribution Width Platelet Count 59 #L Mean Platelet Volume 10.3 Immature 0.800 H Granulocytes % Neutrophils % 65.5 Lymphocytes % 22.3 Monocytes % 9.1 Eosinophils % 0.0 Basophils % 2.3 H Nucleated Red Blood 0.0 Cells % Immature 0.020 Granulocytes # Neutrophils # 1.7 Lymphocytes # 0.6 L Monocytes # 0.2 L Eosinophils # 0.0 Basophils # 0.1 Nucleated Red Blood 0.0 Cells # Sodium Level 140 Potassium Level 3.8 Chloride Level 106 Carbon Dioxide Level 34 H Anion Gap 0 L Blood Urea Nitrogen 12 Creatinine 0.56 Est Glomerular > 60 Filtrat Rate mL/min Glucose Level 180 # Calcium Level 8.4 Phosphorus Level 3.6 Magnesium Level 1.2 L Total Bilirubin 1.7 H Direct Bilirubin 0.00 Indirect Bilirubin 1.7 H Aspartate Amino 71 H Transf (AST/SGOT) Alanine 47 Aminotransferase (AL T/SGPT) Alkaline Phosphatase 97 Total Protein 6.0 #L Albumin 2.0 L Globulin 4.00 H Albumin/Globulin 0.50 Ratio CC: SAV STEVEN MD ; Exam/Review of Systems Exam Vitals Vital Signs Date Temp Pulse Resp B/P (MAP) Pulse Ox O2 O2 Flow FiO2 Time Delivery Rate 10/24/18 Nasal 2.0 08:00 Cannula 10/24/18 97.9 94 18 151/79 97 08:00 (103) 10/23/18 21 01:05 Intake and Output 10/23/18 10/23/18 10/24/18 1515:00 23:00 07:00 IntakeIntake Total 100 ml BalanceBalance 100 ml Results Results 24hrs Laboratory Tests Test 10/23/18 17:05 10/23/18 17:39 10/23/18 18:30 10/23/18 20:42 Bedside Glucose 200 284 H Ammonia 82 H Urine Color YELLOW Urine Clarity CLEAR Urine pH 5.0 Urine Specific 1.013 [place] Urine Ketones NEGATIVE Urine Nitrite NEGATIVE Urine Bilirubin NEGATIVE Urine Urobilinogen 2+ H Urine Leukocyte TRACE A Esterase Urine Microscopic 11 H RBC Urine Microscopic 11 H WBC Urine Hemoglobin 2+ H Urine Glucose NEGATIVE Urine Total Protein NEGATIVE Urine Opiates Screen Negative Urine Barbiturates Negative Urine Amphetamines Positive Screen Urine Negative Benzodiazepines Screen Urine Cocaine Screen Negative Urine Cannabinoids Negative Test 10/24/18 00:24 10/24/18 08:31 10/24/18 09:48 10/24/18 09:54 Bedside Glucose 203 119 Hemoglobin A1c 8.3 H Ammonia 105 H Test 10/24/18 09:55 White Blood Count 2.7 #L Red Blood Count 3.59 L Hemoglobin 10.2 L Hematocrit 31.9 L Mean Corpuscular 88.9 Volume Mean Corpuscular 28.4 L Hemoglobin Mean Corpuscular 32.0 Hemoglobin Concent Red Cell 15.5 H Distribution Width Platelet Count 59 #L Mean Platelet Volume 10.3 Immature 0.800 H Granulocytes % Neutrophils % 65.5 Lymphocytes % 22.3 Monocytes % 9.1 Eosinophils % 0.0 Basophils % 2.3 H Nucleated Red Blood 0.0 Cells % Immature 0.020 Granulocytes # Neutrophils # 1.7 Lymphocytes # 0.6 L Monocytes # 0.2 L Eosinophils # 0.0 Basophils # 0.1 Nucleated Red Blood 0.0 Cells # Sodium Level 140 Potassium Level 3.8 Chloride Level 106 Carbon Dioxide Level 34 H Anion Gap 0 L Blood Urea Nitrogen 12 Creatinine 0.56 Est Glomerular > 60 Filtrat Rate mL/min Glucose Level 180 # Calcium Level 8.4 Phosphorus Level 3.6 Magnesium Level 1.2 L Total Bilirubin 1.7 H Direct Bilirubin 0.00 Indirect Bilirubin 1.7 H Aspartate Amino 71 H Transf (AST/SGOT) Alanine 47 Aminotransferase (AL T/SGPT) Alkaline Phosphatase 97 Total Protein 6.0 #L Albumin 2.0 L Globulin 4.00 H Albumin/Globulin 0.50 Ratio Medications Medication Current Medications Albuterol/ Ipratropium (Duoneb) 3 ml Q2H RESP THERAPY PRN HHN SHORTNESS OF BREATH; Start 10/23/18 at 07:30 Piperacillin Sod/ Tazobactam Sod 100 ml @ 200 mls/hr Q6 IVPB Last administered on 10/24/18at 05:37; Admin Dose 200 MLS/HR; Start 10/23/18 at 12:00 IV Flush (NS 3 ml) 3 ml PER PROTOCOL IV ; Start 10/23/18 at 09:30 Ondansetron HCl (Zofran Inj) 4 mg Q6H PRN IV NAUSEA/VOMITING; Start 10/23/18 at 09:30 Acetaminophen (Tylenol Tab) 650 mg Q8H PRN PO .PAIN 1-3 OR TEMP Last administered on 10/23/18at 17:04; Admin Dose 650 MG; Start 10/23/18 at 09:30 Famotidine (Pepcid Iv) 20 mg Q12 IV Last administered on 10/24/18at 08:57; Admin Dose 20 MG; Start 10/23/18 at 21:00 Diagnostic Test (Pha) (Accu-Chek) 1 ea 02 XX Last administered on 10/24/18at 01:36; Admin Dose 1 EA; Start 10/24/18 at 02:00 Insulin Aspart (Novolog Insulin Pen) NOVOLOG *MILD* ALGORITHM WITH MEALS BEDTIME SC Last administered on 10/23/18at 20:44; Admin Dose 3 UNIT; Start 10/23/18 at 12:00 Miscellaneous Information 1 ea NOTE XX ; Start 10/23/18 at 09:30 Glucose (Glutose) 15 gm Q15M PRN PO DECREASED GLUCOSE; Start 10/23/18 at 09:30 Glucose (Glutose) 22.5 gm Q15M PRN PO DECREASED GLUCOSE; Start 10/23/18 at 09:30 Dextrose (D50w Syringe) 25 ml Q15M PRN IV DECREASED GLUCOSE; Start 10/23/18 at 09:30 Dextrose (D50w Syringe) 50 ml Q15M PRN IV DECREASED GLUCOSE; Start 10/23/18 at 09:30 Glucagon (Glucagen) 1 mg Q15M PRN IM DECREASED GLUCOSE; Start 10/23/18 at 09:30 Glucose (Glutose) 15 gm Q15M PRN BUCCAL DECREASED GLUCOSE; Start 10/23/18 at 09:30 Rifaximin (Xifaxan) 550 mg BID PO Last administered on 10/24/18at 08:57; Admin Dose 550 MG; Start 10/23/18 at 21:00 Insulin Glargine (Lantus) 24 units DAILY@0800 SC Last administered on 10/24/18at 08:59; Admin Dose 24 UNITS; Start 10/23/18 at 11:30 Spironolactone (Aldactone) 50 mg BID DIURETICS PO Last administered on 10/24/18at 05:38; Admin Dose 50 MG; Start 10/23/18 at 11:00 Furosemide (Lasix) 40 mg DAILY IV Last administered on 10/24/18at 08:57; Admin Dose 40 MG; Start 10/23/18 at 11:00 Tramadol HCl (Ultram) 50 mg Q6H PRN PO MODERATE PAIN LEVEL 4-6; Start 10/24/18 at 00:00 Insulin Aspart (Novolog Insulin Pen) 4 unit WITH MEALS SC ; Start 10/24/18 at 12:00 Lactulose (Enulose) 20 gm Q8 PO ; Start 10/24/18 at 14:00; Status UNV Magnesium Sulfate 100 ml @ 25 mls/hr ONCE ONCE IVPB ; Start 10/24/18 at 12:30; Stop 10/24/18 at 16:29; Status UNV GISELLA TESFAYE NP October 24, 2018 12:28
--- NOTE | 2018-10-24 12:31 | PN ---
Date/Time of Note Date/Time of Note DATE: 10/24/18 TIME: 12:19 Assessment/Plan VTE Prophylaxis Risk score (from Ns)>0 risk: 3 SCD applied (from Ns): No SCD contraindicated: other Pharmacological prophylaxis: NA/contraindicated Pharm contraindication: liver dx, anticoag not tolerated Lines/Catheters [facility]from [facility] Saline Lock Urinary Cath still in place: Yes Reason Cath still needed: other (indicate) Assessment/Plan Hospital Course SUBJECTIVE:NO MORE LOOSE STOOL DRAINING PER rECTAL TUBE. OBJECTIVE: Vital signs-see below PHYSICAL EXAM: Constitutional: Morbidly obese female,not in acute distress. HEENT: Head atraumatic and normocephalic. Eyes: Extraocular muscles intact. Anicteric sclerae. Pupils equal bilaterally, reactive to light. NECK: Supple without lymph node. CHEST: Coarse breath sounds w/mild expiratory wheeze greater on right side. HEART: S1, S2. Regular rate and rhythm. ABDOMEN: Tenderness to all 4 quadrants, no rebound tenderness. Bowel sounds were present. EXTREMITIES: Diffuse edema bilateral lower extremities-improved. Chronic venous stasis changes appreciated. No cyanosis or clubbing appreciated. NEUROLOGIC: Confused. Alert and oriented x2. No focal deficit. No sensory deficit. PSYCHOSOCIAL: No signs of depression. INTEGUMENTARY: No open wounds. ASSESSMENT AND PLAN:58-year-old morbidly obese homeless female with a history of untreated hepatitis C, liver cirrhosis/ascites with history of paracentesis, thrombocytopenia, pleural effusion with history of thoracentesis,dm2, anemia,meth abuse and noncompliance here with worsening shortness of breath/ confusion, abdominal pain,incontinence, nonbloody diarrhea x2 days duration... Sepsis -Most suspect source: Intra-abdominal/respiratory -IV Zosyn -f/u Cultures/stool studies Nonbloody diarrhea/abdominal pain -Rule out colitis versus other -diarrhea improved -f/u C. 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 -uptitrate lactulose and add thiamine -on rifaximin. -cessation of substance abuse Community acquired pneumonia -Clinically improved -cont.abx R pleural effusion -stable and appears to be a chronic problem and was ruled out for malignancy with previous admissions -Continue diuretics Liver cirrhosis w/sequela of splenomegaly/thrombocytopenia/portal HTN - Secondary to hepatitis C and alcohol. - cont lasix, spironolactone - Ammonia detoxicant DMII: - stable glyecmic control - Basal/bolus Untreated hepatitis C -Outpatient GI follow-up Cholelithiasis without cholecystitis -monitor Chronic lymphedema -Improved significantly -cont.elevation of affected extremities -Venous duplex to rule out DVT Chronic anemia -Stable H&H. Monitor. Homelessness/Meth abuse -Patient was previously placed in a correction where she went AMA back to the streets. -SW f/u Morbid obesity with BMI 41.6. -Lifestyle changes advised. Noncompliance -Counselled DVT prophylaxis: SCDs, chemical anti-correlation contraindicated with abnormal liver function/coagulopathies. PUD prophylaxis: Pepcid Dispo:F/u stool studies. Once encephalopathy improves back to baseline dc planning. Patient was seen in collaboration with Dr. Gamez. Result Diagram: 10/24/1895410/24/18 0955 Results 24hrs Laboratory Tests Test 10/23/18 17:05 10/23/18 17:39 10/23/18 18:30 10/23/18 20:42 Bedside Glucose 200 284 H Ammonia 82 H Urine Color YELLOW Urine Clarity CLEAR Urine pH 5.0 Urine Specific 1.013 [place] Urine Ketones NEGATIVE Urine Nitrite NEGATIVE Urine Bilirubin NEGATIVE Urine Urobilinogen 2+ H Urine Leukocyte TRACE A Esterase Urine Microscopic 11 H RBC Urine Microscopic 11 H WBC Urine Hemoglobin 2+ H Urine Glucose NEGATIVE Urine Total Protein NEGATIVE Urine Opiates Screen Negative Urine Barbiturates Negative Urine Amphetamines Positive Screen Urine Negative Benzodiazepines Screen Urine Cocaine Screen Negative Urine Cannabinoids Negative Test 10/24/18 00:24 10/24/18 08:31 10/24/18 09:48 10/24/18 09:54 Bedside Glucose 203 119 Hemoglobin A1c 8.3 H Ammonia 105 H Test 10/24/18 09:55 White Blood Count 2.7 #L Red Blood Count 3.59 L Hemoglobin 10.2 L Hematocrit 31.9 L Mean Corpuscular 88.9 Volume Mean Corpuscular 28.4 L Hemoglobin Mean Corpuscular 32.0 Hemoglobin Concent Red Cell 15.5 H Distribution Width Platelet Count 59 #L Mean Platelet Volume 10.3 Immature 0.800 H Granulocytes % Neutrophils % 65.5 Lymphocytes % 22.3 Monocytes % 9.1 Eosinophils % 0.0 Basophils % 2.3 H Nucleated Red Blood 0.0 Cells % Immature 0.020 Granulocytes # Neutrophils # 1.7 Lymphocytes # 0.6 L Monocytes # 0.2 L Eosinophils # 0.0 Basophils # 0.1 Nucleated Red Blood 0.0 Cells # Sodium Level 140 Potassium Level 3.8 Chloride Level 106 Carbon Dioxide Level 34 H Anion Gap 0 L Blood Urea Nitrogen 12 Creatinine 0.56 Est Glomerular > 60 Filtrat Rate mL/min Glucose Level 180 # Calcium Level 8.4 Phosphorus Level 3.6 Magnesium Level 1.2 L Total Bilirubin 1.7 H Direct Bilirubin 0.00 Indirect Bilirubin 1.7 H Aspartate Amino 71 H Transf (AST/SGOT) Alanine 47 Aminotransferase (AL T/SGPT) Alkaline Phosphatase 97 Total Protein 6.0 #L Albumin 2.0 L Globulin 4.00 H Albumin/Globulin 0.50 Ratio Exam/Review of Systems Exam Vitals Vital Signs Date Temp Pulse Resp B/P (MAP) Pulse Ox O2 O2 Flow FiO2 Time Delivery Rate 10/24/18 Nasal 2.0 08:00 Cannula 10/24/18 97.9 94 18 151/79 97 08:00 (103) 10/23/18 21 01:05 Intake and Output 10/23/18 10/23/18 10/24/18 1515:00 23:00 07:00 IntakeIntake Total 100 ml BalanceBalance 100 ml Results Results 24hrs Laboratory Tests Test 10/23/18 17:05 10/23/18 17:39 10/23/18 18:30 10/23/18 20:42 Bedside Glucose 200 284 H Ammonia 82 H Urine Color YELLOW Urine Clarity CLEAR Urine pH 5.0 Urine Specific 1.013 [place] Urine Ketones NEGATIVE Urine Nitrite NEGATIVE Urine Bilirubin NEGATIVE Urine Urobilinogen 2+ H Urine Leukocyte TRACE A Esterase Urine Microscopic 11 H RBC Urine Microscopic 11 H WBC Urine Hemoglobin 2+ H Urine Glucose NEGATIVE Urine Total Protein NEGATIVE Urine Opiates Screen Negative Urine Barbiturates Negative Urine Amphetamines Positive Screen Urine Negative Benzodiazepines Screen Urine Cocaine Screen Negative Urine Cannabinoids Negative Test 10/24/18 00:24 10/24/18 08:31 10/24/18 09:48 10/24/18 09:54 Bedside Glucose 203 119 Hemoglobin A1c 8.3 H Ammonia 105 H Test 10/24/18 09:55 White Blood Count 2.7 #L Red Blood Count 3.59 L Hemoglobin 10.2 L Hematocrit 31.9 L Mean Corpuscular 88.9 Volume Mean Corpuscular 28.4 L Hemoglobin Mean Corpuscular 32.0 Hemoglobin Concent Red Cell 15.5 H Distribution Width Platelet Count 59 #L Mean Platelet Volume 10.3 Immature 0.800 H Granulocytes % Neutrophils % 65.5 Lymphocytes % 22.3 Monocytes % 9.1 Eosinophils % 0.0 Basophils % 2.3 H Nucleated Red Blood 0.0 Cells % Immature 0.020 Granulocytes # Neutrophils # 1.7 Lymphocytes # 0.6 L Monocytes # 0.2 L Eosinophils # 0.0 Basophils # 0.1 Nucleated Red Blood 0.0 Cells # Sodium Level 140 Potassium Level 3.8 Chloride Level 106 Carbon Dioxide Level 34 H Anion Gap 0 L Blood Urea Nitrogen 12 Creatinine 0.56 Est Glomerular > 60 Filtrat Rate mL/min Glucose Level 180 # Calcium Level 8.4 Phosphorus Level 3.6 Magnesium Level 1.2 L Total Bilirubin 1.7 H Direct Bilirubin 0.00 Indirect Bilirubin 1.7 H Aspartate Amino 71 H Transf (AST/SGOT) Alanine 47 Aminotransferase (AL T/SGPT) Alkaline Phosphatase 97 Total Protein 6.0 #L Albumin 2.0 L Globulin 4.00 H Albumin/Globulin 0.50 Ratio Medications Medication Current Medications Albuterol/ Ipratropium (Duoneb) 3 ml Q2H RESP THERAPY PRN HHN SHORTNESS OF BREATH; Start 10/23/18 at 07:30 Piperacillin Sod/ Tazobactam Sod 100 ml @ 200 mls/hr Q6 IVPB Last administered on 10/24/18at 05:37; Admin Dose 200 MLS/HR; Start 10/23/18 at 12:00 IV Flush (NS 3 ml) 3 ml PER PROTOCOL IV ; Start 10/23/18 at 09:30 Ondansetron HCl (Zofran Inj) 4 mg Q6H PRN IV NAUSEA/VOMITING; Start 10/23/18 at 09:30 Acetaminophen (Tylenol Tab) 650 mg Q8H PRN PO .PAIN 1-3 OR TEMP Last administered on 10/23/18at 17:04; Admin Dose 650 MG; Start 10/23/18 at 09:30 Famotidine (Pepcid Iv) 20 mg Q12 IV Last administered on 10/24/18at 08:57; Admin Dose 20 MG; Start 10/23/18 at 21:00 Diagnostic Test (Pha) (Accu-Chek) 1 ea 02 XX Last administered on 10/24/18at 01:36; Admin Dose 1 EA; Start 10/24/18 at 02:00 Insulin Aspart (Novolog Insulin Pen) NOVOLOG *MILD* ALGORITHM WITH MEALS BEDTIME SC Last administered on 10/23/18at 20:44; Admin Dose 3 UNIT; Start 10/23/18 at 12:00 Miscellaneous Information 1 ea NOTE XX ; Start 10/23/18 at 09:30 Glucose (Glutose) 15 gm Q15M PRN PO DECREASED GLUCOSE; Start 10/23/18 at 09:30 Glucose (Glutose) 22.5 gm Q15M PRN PO DECREASED GLUCOSE; Start 10/23/18 at 09:30 Dextrose (D50w Syringe) 25 ml Q15M PRN IV DECREASED GLUCOSE; Start 10/23/18 at 09:30 Dextrose (D50w Syringe) 50 ml Q15M PRN IV DECREASED GLUCOSE; Start 10/23/18 at 09:30 Glucagon (Glucagen) 1 mg Q15M PRN IM DECREASED GLUCOSE; Start 10/23/18 at 09:30 Glucose (Glutose) 15 gm Q15M PRN BUCCAL DECREASED GLUCOSE; Start 10/23/18 at 09:30 Rifaximin (Xifaxan) 550 mg BID PO Last administered on 10/24/18at 08:57; Admin Dose 550 MG; Start 10/23/18 at 21:00 Insulin Glargine (Lantus) 24 units DAILY@0800 SC Last administered on 10/24/18at 08:59; Admin Dose 24 UNITS; Start 10/23/18 at 11:30 Spironolactone (Aldactone) 50 mg BID DIURETICS PO Last administered on 10/24/18at 05:38; Admin Dose 50 MG; Start 10/23/18 at 11:00 Furosemide (Lasix) 40 mg DAILY IV Last administered on 10/24/18at 08:57; Admin Dose 40 MG; Start 10/23/18 at 11:00 Tramadol HCl (Ultram) 50 mg Q6H PRN PO MODERATE PAIN LEVEL 4-6; Start 10/24/18 at 00:00 Insulin Aspart (Novolog Insulin Pen) 4 unit WITH MEALS SC ; Start 10/24/18 at 12:00 Lactulose (Enulose) 20 gm Q8 PO ; Start 10/24/18 at 14:00; Status UNV Magnesium Sulfate 100 ml @ 25 mls/hr ONCE ONCE IVPB ; Start 10/24/18 at 12:30; Stop 10/24/18 at 16:29; Status UNV CAT MARTÍNEZ NP October 24, 2018 12:31
--- NOTE | 2018-10-24 13:01 | PSY ---
Date/Time of Note Date/Time of Note DATE: 10/24/18 TIME: 12:56 Psychiatric Subjective Eval Consent Pt consented to telemedicine: No Subjective Evaluation Patient location: inpatient Chief Complaint: shortness of breath x 1 day History of present illness Patient is seen 58-year-old morbidly female with a history of hepatitis C, liver cirrhosis/ascites and thrombocytopenia. [id number] evaluation, patient is tearful she reports feeling hopeless and helpless over her living situation, states she has normal friend of family and she is fearful about being on the street again she denies suicidal ideation, and contracted for safety Past psychiatric history Long history of depression Hospitalization: other Medical history Problems Medical Problems: (1) Abdominal pain Status: Acute (2) Acute respiratory failure with hypoxia and hypercapnia Status: Acute (3) Ankle pain Status: Acute (4) Cellulitis Status: Acute (5) CHF (congestive heart failure) Status: Acute (6) Cirrhosis Status: Acute (7) Diabetes Status: Acute (8) Diabetes Status: Acute (9) Epigastric pain Status: Acute (10) Epigastric pain Status: Acute (11) Gingivitis Status: Acute (12) History of hepatitis C Status: Acute (13) Hyperglycemia Status: Acute (14) Pancytopenia Status: Acute (15) Peripheral edema Status: Acute (16) Peripheral edema Status: Acute (17) Pleural effusion Status: Acute (18) Pleural effusion, right Status: Acute (19) Right lower lobe pneumonia Status: Acute (20) Sepsis Status: Acute (21) Sepsis Status: Acute (22) Shortness of breath Status: Acute (23) Thrombocytopenia Status: Acute (24) UTI (urinary tract infection) Status: Acute Allergies: Coded Allergies: vancomycin (Unverified Allergy, Intermediate, 10/23/18) PER REPORT ibuprofen (Unverified Adverse Reaction, Mild, SICK TO HER STOMACH, 10/23/18) Substance Abuse Substance abuse history: No Prior substance abuse treatmen: No Social History Marital status: other DPA/Conservatorship: No Psychiatric Objective Eval Review of Systems: Review of Systems: Not Applicable Physical Examination: Physical Examination: Not Applicable Sleep: Insomnia Appetite: Adequate, Decreased Energy: Decreased Interest: Decreased Mental Status Examination: Appearance: Poor Hygiene Psychomotor Activity: Slow Behavior: Cooperative Mood: Depressed Orientation: x4 Cognition: Alert Insight: Impared Judgement: Impared Attention Span: Distractible Laboratory Results Laboratory Tests Test 10/23/18 02:05 10/23/18 02:08 10/23/18 04:30 10/23/18 06:00 POC Venous 4.1 mmol/L Lactate White Blood Count 4.8 10^3/ul Red Blood Count 4.04 10^6/ul Hemoglobin 11.6 g/dl Hematocrit 36.4 % Mean Corpuscular 90.1 fl Volume Mean Corpuscular 28.7 pg Hemoglobin Mean Corpuscular 31.9 g/dl Hemoglobin Concen t Red Cell 15.3 % Distribution Width Platelet Count 77 10^3/UL Mean Platelet 10.1 fl Volume Immature 0.800 % Granulocytes % Neutrophils % 71.5 % Lymphocytes % 19.0 % Monocytes % 7.9 % Eosinophils % 0.0 % Basophils % 0.8 % Nucleated Red 0.0 /100WBC Blood Cells % Immature 0.040 10^3/ul Granulocytes # Neutrophils # 3.4 10^3/ul Lymphocytes # 0.9 10^3/ul Monocytes # 0.4 10^3/ul Eosinophils # 0.0 10^3/ul Basophils # 0.0 10^3/ul Nucleated Red 0.0 10^3/ul Blood Cells # Prothrombin Time 15.9 Sec Prothrombin Time 1.2 Ratio INR International 1.26 Normalized Ratio Activated 32.2 Sec Partial Thrombopl ast Time Sodium Level 139 mmol/L Potassium Level 4.3 mmol/L Chloride Level 106 mmol/L Carbon Dioxide 28 mmol/L Level Anion Gap 5 Blood Urea 11 mg/dl Nitrogen Creatinine 0.72 mg/dl Est Glomerular > 60 mL/min Filtrat Rate mL/min Glucose Level 466 mg/dl Calcium Level 8.5 mg/dl Total Bilirubin 2.4 mg/dl Direct Bilirubin 0.00 mg/dl Indirect 2.4 mg/dl Bilirubin Aspartate Amino 80 IU/L Transf (AST/SGOT) Alanine 42 IU/L Aminotransferase (ALT/SGPT) Alkaline 149 IU/L Phosphatase Troponin I < 0.012 ng/ml Total Protein 7.4 g/dl Albumin 2.5 g/dl Globulin 4.90 g/dl Albumin/Globulin 0.51 Ratio Lactic Acid Level 3.2 mmol/L Hemoglobin A1c 8.2 % Test 10/23/18 06:03 10/23/18 07:10 10/23/18 08:23 10/23/18 08:24 Bedside Glucose 311 mg/dL 329 mg/dL 282 mg/dL Lactic Acid Level 1.9 mmol/L Hepatitis B NEGATIVE Surface Antigen Hepatitis B Core NEGATIVE Total Antibody Hepatitis C REACTIVE Antibody Test 10/23/18 11:58 10/23/18 17:05 10/23/18 17:39 10/23/18 18:30 Bedside Glucose 220 mg/dL 200 mg/dL Ammonia 82 umol/l Urine Color YELLOW Urine Clarity CLEAR Urine pH 5.0 Urine Specific 1.013 [place] Urine Ketones NEGATIVE mg/dL Urine Nitrite NEGATIVE mg/dL Urine Bilirubin NEGATIVE mg/dL Urine 2+ mg/dL Urobilinogen Urine Leukocyte TRACE Cathy/ul Esterase Urine Microscopic 11 /HPF RBC Urine Microscopic 11 /HPF WBC Urine Hemoglobin 2+ mg/dL Urine Glucose NEGATIVE mg/dL Urine Total NEGATIVE mg/dl Protein Urine Opiates Negative Screen Urine Negative Barbiturates Urine Positive Amphetamines Screen Urine Negative Benzodiazepines Screen Urine Cocaine Negative Screen Urine Negative Cannabinoids Test 10/23/18 20:42 10/24/18 00:24 10/24/18 08:31 10/24/18 09:48 Bedside Glucose 284 mg/dL 203 mg/dL 119 mg/dL Hemoglobin A1c 8.3 % Test 10/24/18 09:54 10/24/18 09:55 10/24/18 12:36 Ammonia 105 umol/l White Blood Count 2.7 10^3/ul Red Blood Count 3.59 10^6/ul Hemoglobin 10.2 g/dl Hematocrit 31.9 % Mean Corpuscular 88.9 fl Volume Mean Corpuscular 28.4 pg Hemoglobin Mean Corpuscular 32.0 g/dl Hemoglobin Concen t Red Cell 15.5 % Distribution Width Platelet Count 59 10^3/UL Mean Platelet 10.3 fl Volume Immature 0.800 % Granulocytes % Neutrophils % 65.5 % Lymphocytes % 22.3 % Monocytes % 9.1 % Eosinophils % 0.0 % Basophils % 2.3 % Nucleated Red 0.0 /100WBC Blood Cells % Immature 0.020 10^3/ul Granulocytes # Neutrophils # 1.7 10^3/ul Lymphocytes # 0.6 10^3/ul Monocytes # 0.2 10^3/ul Eosinophils # 0.0 10^3/ul Basophils # 0.1 10^3/ul Nucleated Red 0.0 10^3/ul Blood Cells # Sodium Level 140 mmol/L Potassium Level 3.8 mmol/L Chloride Level 106 mmol/L Carbon Dioxide 34 mmol/L Level Anion Gap 0 Blood Urea 12 mg/dl Nitrogen Creatinine 0.56 mg/dl Est Glomerular > 60 mL/min Filtrat Rate mL/min Glucose Level 180 mg/dl Calcium Level 8.4 mg/dl Phosphorus Level 3.6 mg/dl Magnesium Level 1.2 mg/dl Total Bilirubin 1.7 mg/dl Direct Bilirubin 0.00 mg/dl Indirect 1.7 mg/dl Bilirubin Aspartate Amino 71 IU/L Transf (AST/SGOT) Alanine 47 IU/L Aminotransferase (ALT/SGPT) Alkaline 97 IU/L Phosphatase Total Protein 6.0 g/dl Albumin 2.0 g/dl Globulin 4.00 g/dl Albumin/Globulin 0.50 Ratio Bedside Glucose 226 mg/dL Assessment and Plan Assessment/Diagnosis Diagnosis Major 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 Recommendation/Plan Medication Management Prozac 20 mg daily, Ambien 5 mg nightly as needed Multiple antipsychotics: No Discharge Disposition: Other Legal Status: Voluntary (Does not meet criteria for 5150 hold) KIT TOM NP October 24, 2018 13:00
[2018-10-24] MEDS: LACTULOSE 30ML CUP PO SCH ×2 (13:23→21:14)
[2018-10-24] MEDS: THIAMINE 100 MG TAB PO SCH (13:23)
[2018-10-24] MEDS: FLUOXETINE 20 MG CAP PO SCH (13:23)
[2018-10-24] MEDS ORDERED: MAGNESIUM SULFATE 4 GM/100 ML 100 ML IVPB ONE (13:30)
[2018-10-24 14:00] VITALS: BP 151/73; PULSE 97; RESP 18
[2018-10-24 19:45] VITALS: BP 134/64; PULSE 90; RESP 18
[2018-10-24] MEDS: ZOLPIDEM 5 MG TAB PO PRN (21:13)
[2018-10-25] MEDS: ACCU-CHEK XX SCH (01:04)
[2018-10-25 01:44] VITALS: BP 141/74; PULSE 85; RESP 19
[2018-10-25] MEDS: SPIRONOLACTONE 50 MG TAB PO SCH ×2 (05:18→17:00)
[2018-10-25] MEDS: LACTULOSE 30ML CUP PO SCH ×3 (05:18→21:10)
[2018-10-25] MEDS: PIPER-TAZO 3.375 GM IV (PMX) 100 ML IVPB SCH ×5 (06:00→23:37)
[2018-10-25 07:37] VITALS: BP 169/79; PULSE 106; RESP 18
[2018-10-25] MEDS: INSULIN ASPART [NOVOLOG] 3 ML PEN SC SCH ×7 (08:00→21:09)
[2018-10-25] MEDS: INSULIN GLARGINE [LANTus] (100 UNITS/ML) SYG SC SCH (08:09)
[2018-10-25] MEDS: FAMOTIDINE 20 MG TAB PO SCH (09:15)
[2018-10-25] MEDS: RIFAXIMIN 550 MG TAB PO SCH ×2 (09:15→21:09)
[2018-10-25] MEDS: FLUOXETINE 20 MG CAP PO SCH (09:17)
[2018-10-25] MEDS: FUROSEMIDE 40 MG TAB PO SCH (09:17)
[2018-10-25] MEDS: THIAMINE 100 MG TAB PO SCH (09:17)
[2018-10-25] MEDS: traMADol 50 MG TAB PO PRN (09:43)
--- NOTE | 2018-10-25 11:39 | PN ---
Date/Time of Note Date/Time of Note DATE: 10/25/18 TIME: 11:36 Assessment/Plan VTE Prophylaxis Risk score (from Ns)>0 risk: 1 SCD applied (from Nsg): Yes Pharmacological prophylaxis: heparin Lines/Catheters IV Catheter Type (from Nrs): Mid Line Urinary Cath still in place: Yes Reason Cath still needed: skin wounds contaminated by urine Assessment/Plan Problems: (1) Sepsis Status: Acute Comment: Anabiotic's and improving. Please note this is a mixed picture given her liver dysfunction and drug usage. However overall she is improving Qualifiers: Sepsis type: sepsis due to unspecified organism Qualified Codes: A41.9 - Sepsis, unspecified organism (2) Diabetes mellitus type 2 in obese Status: Chronic Comment: Adequate glycemic control (3) Gingivitis Status: Acute Comment: On antibiotic therapy to assist with this (4) Cholelithiasis Status: Chronic Comment: Noted. Qualifiers: Cholelithiasis location: gallbladder Cholecystitis presence: without cholecystitis Biliary obstruction: without biliary obstruction Qualified Codes: K80.20 - Calculus of gallbladder without cholecystitis without obstruction (5) Hepatitis C virus infection Status: Chronic Comment: Given the signs of advanced liver disease continue with rifaximin Qualifiers: Viral hepatitis chronicity: chronic Hepatic coma status: without hepatic coma Qualified Codes: B18.2 - Chronic viral hepatitis C (6) Cirrhosis of liver Status: Chronic Comment: Noted. Continue maximum available treatment Qualifiers: Hepatic cirrhosis type: other cirrhosis Qualified Codes: K74.69 - Other cirrhosis of liver (7) Portal hypertension with esophageal varices Status: Chronic Comment: Noted. (8) Methamphetamine abuse Status: Chronic Comment: strongly re-counseled, social work is work with the patient (9) Morbid obesity with BMI of 40.0-44.9, adult Status: Chronic Comment: Noted. Calorie restriction diet Result Diagram: 10/25/18 0639 10/25/1839 Results 24hrs Laboratory Tests Test 10/24/18 12:36 10/24/18 17:26 10/24/18 21:12 10/25/18 01:01 Bedside Glucose 226 H 272 H 204 143 Test 10/25/18 06:38 10/25/18 06:39 10/25/18 08:00 Magnesium Level 1.6 L White Blood Count 3.4 #L Red Blood Count 3.81 L Hemoglobin 11.1 L Hematocrit 33.9 L Mean Corpuscular 89.0 Volume Mean Corpuscular 29.1 Hemoglobin Mean Corpuscular 32.7 Hemoglobin Concent Red Cell 15.7 H Distribution Width Platelet Count 60 L Mean Platelet Volume 9.5 Immature 1.200 H Granulocytes % Neutrophils % 63.0 Lymphocytes % 24.4 Monocytes % 10.2 Eosinophils % 0.0 Basophils % 1.2 Nucleated Red Blood 0.0 Cells % Immature 0.040 H Granulocytes # Neutrophils # 2.2 Lymphocytes # 0.8 Monocytes # 0.4 Eosinophils # 0.0 Basophils # 0.0 Nucleated Red Blood 0.0 Cells # Sodium Level 141 Potassium Level 4.0 Chloride Level 106 Carbon Dioxide Level 34 H Anion Gap 1 L Blood Urea Nitrogen 15 Creatinine 0.54 Est Glomerular > 60 Filtrat Rate mL/min Glucose Level 128 # Calcium Level 8.1 L Total Bilirubin 1.9 H Direct Bilirubin 0.00 Indirect Bilirubin 1.9 H Aspartate Amino 76 H Transf (AST/SGOT) Alanine 48 Aminotransferase (AL T/SGPT) Alkaline Phosphatase 113 Total Protein 6.8 Albumin 2.2 L Globulin 4.60 H Albumin/Globulin 0.47 Ratio Bedside Glucose 118 Subjective 24 Hr Interval Summary Free Text/Dictation Patient states "I am all messed up". Patient does acknowledge that she has been using crystal meth in the recent past Constitutional: no complaints Respiratory: no complaints Cardiovascular: no complaints Gastrointestinal: no complaints (Reports her diarrhea has settled down) Exam/Review of Systems Exam Vitals Vital Signs Date Temp Pulse Resp B/P (MAP) Pulse Ox O2 O2 Flow FiO2 Time Delivery Rate 10/25/18 Nasal 2.0 09:39 Cannula 10/25/18 98.2 106 18 169/79 91 07:37 (109) 10/23/18 21 01:05 Intake and Output 10/24/18 10/24/18 10/25/18 1515:00 23:00 07:00 IntakeIntake Total 1080 ml 100 ml OutputOutput Total 900 ml 500 ml BalanceBalance 180 ml 100 ml -500 ml Constitutional: alert, oriented Respiratory: clear to auscultation, normal air movement Cardiovascular: regular rate and rhythm, nl pulses Gastrointestinal: soft, nl liver, spleen, non-tender Results Results 24hrs Laboratory Tests Test 10/24/18 12:36 10/24/18 17:26 10/24/18 21:12 10/25/18 01:01 Bedside Glucose 226 H 272 H 204 143 Test 10/25/18 06:38 10/25/18 06:39 10/25/18 08:00 Magnesium Level 1.6 L White Blood Count 3.4 #L Red Blood Count 3.81 L Hemoglobin 11.1 L Hematocrit 33.9 L Mean Corpuscular 89.0 Volume Mean Corpuscular 29.1 Hemoglobin Mean Corpuscular 32.7 Hemoglobin Concent Red Cell 15.7 H Distribution Width Platelet Count 60 L Mean Platelet Volume 9.5 Immature 1.200 H Granulocytes % Neutrophils % 63.0 Lymphocytes % 24.4 Monocytes % 10.2 Eosinophils % 0.0 Basophils % 1.2 Nucleated Red Blood 0.0 Cells % Immature 0.040 H Granulocytes # Neutrophils # 2.2 Lymphocytes # 0.8 Monocytes # 0.4 Eosinophils # 0.0 Basophils # 0.0 Nucleated Red Blood 0.0 Cells # Sodium Level 141 Potassium Level 4.0 Chloride Level 106 Carbon Dioxide Level 34 H Anion Gap 1 L Blood Urea Nitrogen 15 Creatinine 0.54 Est Glomerular > 60 Filtrat Rate mL/min Glucose Level 128 # Calcium Level 8.1 L Total Bilirubin 1.9 H Direct Bilirubin 0.00 Indirect Bilirubin 1.9 H Aspartate Amino 76 H Transf (AST/SGOT) Alanine 48 Aminotransferase (AL T/SGPT) Alkaline Phosphatase 113 Total Protein 6.8 Albumin 2.2 L Globulin 4.60 H Albumin/Globulin 0.47 Ratio Bedside Glucose 118 Medications Medication Current Medications Albuterol/ Ipratropium (Duoneb) 3 ml Q2H RESP THERAPY PRN HHN SHORTNESS OF BREATH; Start 10/23/18 at 07:30 Piperacillin Sod/ Tazobactam Sod 100 ml @ 200 mls/hr Q6 IVPB Last administered on 10/24/18at 17:31; Admin Dose 200 MLS/HR; Start 10/23/18 at 12:00 IV Flush (NS 3 ml) 3 ml PER PROTOCOL IV ; Start 10/23/18 at 09:30 Ondansetron HCl (Zofran Inj) 4 mg Q6H PRN IV NAUSEA/VOMITING; Start 10/23/18 at 09:30 Acetaminophen (Tylenol Tab) 650 mg Q8H PRN PO .PAIN 1-3 OR TEMP Last administered on 10/23/18at 17:04; Admin Dose 650 MG; Start 10/23/18 at 09:30 Diagnostic Test (Pha) (Accu-Chek) 1 ea 02 XX Last administered on 10/25/18at 01:04; Admin Dose 1 EA; Start 10/24/18 at 02:00 Insulin Aspart (Novolog Insulin Pen) NOVOLOG *MILD* ALGORITHM WITH MEALS BEDTIME SC Last administered on 10/24/18at 21:18; Admin Dose 1 UNIT; Start 10/23/18 at 12:00 Miscellaneous Information 1 ea NOTE XX ; Start 10/23/18 at 09:30 Glucose (Glutose) 15 gm Q15M PRN PO DECREASED GLUCOSE; Start 10/23/18 at 09:30 Glucose (Glutose) 22.5 gm Q15M PRN PO DECREASED GLUCOSE; Start 10/23/18 at 09:30 Dextrose (D50w Syringe) 25 ml Q15M PRN IV DECREASED GLUCOSE; Start 10/23/18 at 09:30 Dextrose (D50w Syringe) 50 ml Q15M PRN IV DECREASED GLUCOSE; Start 10/23/18 at 09:30 Glucagon (Glucagen) 1 mg Q15M PRN IM DECREASED GLUCOSE; Start 10/23/18 at 09:30 Glucose (Glutose) 15 gm Q15M PRN BUCCAL DECREASED GLUCOSE; Start 10/23/18 at 09:30 Rifaximin (Xifaxan) 550 mg BID PO Last administered on 10/25/18at 09:15; Admin Dose 550 MG; Start 10/23/18 at 21:00 Insulin Glargine (Lantus) 24 units DAILY@0800 SC Last administered on 10/25/18at 08:09; Admin Dose 24 UNITS; Start 10/23/18 at 11:30 Spironolactone (Aldactone) 50 mg BID DIURETICS PO Last administered on 17:26; Admin Dose 50 MG; Start 10/23/18 at 11:00 Tramadol HCl (Ultram) 50 mg Q6H PRN PO MODERATE PAIN LEVEL 4-6 Last administered on 10/25/18 09:43; Admin Dose 50 MG; Start 10/24/18 at 00:00 Insulin Aspart (Novolog Insulin Pen) 4 unit WITH MEALS SC Last administered on 10/25/18 08:08; Admin Dose 4 UNIT; Start 10/24/18 at 12:00 Lactulose (Enulose) 20 gm Q8 PO Last administered on 10/24/18 21:14; Admin Dose 20 GM; Start 10/24/18 at 14:00 Thiamine HCl (Vitamin B1) 100 mg DAILY PO Last administered on 10/25/18 09:17; Admin Dose 100 MG; Start 10/24/18 at 13:00 Fluoxetine HCl (Prozac) 20 mg DAILY PO Last administered on 10/25/18 09:17; Admin Dose 20 MG; Start 10/24/18 at 13:00 Zolpidem Tartrate (Ambien) 5 mg HS PRN PO INSOMNIA Last administered on 10/24/18 21:13; Admin Dose 5 MG; Start 10/24/18 at 13:00 Furosemide (Lasix) 40 mg DAILY PO Last administered on 10/25/18 09:17; Admin Dose 40 MG; Start 10/25/18 at 09:30 Famotidine (Pepcid) 20 mg DAILY PO Last administered on 10/25/18 09:15; Admin Dose 20 MG; Start 10/25/18 at 09:30 KARRIE MONTANA MD October 25, 2018 11:39
[2018-10-25 14:05] VITALS: BP 155/70; PULSE 91; RESP 18
--- NOTE | 2018-10-25 17:28 | PN ---
Date/Time of Note Date/Time of Note DATE: 10/25/18 TIME: 17:18 Assessment/Plan VTE Prophylaxis Risk score (from Ns)>0 risk: 1 SCD applied (from Ns): Yes Pharmacological prophylaxis: NA/contraindicated Pharm contraindication: liver dx Lines/Catheters [facility]from [facility] Mid Line Urinary Cath still in place: Yes Reason Cath still needed: skin wounds contaminated by urine Assessment/Plan Assessment/Plan Assessment: Sepsis Diarrhea- stool studies pending Cirrhosis -Thrombocytopenia -Coagulopathy, mild Splenomegaly Imaging findings suggestive of portal HTN Elevated LFTs with indirect hyperbilirubinemia Normocytic anemia DM History of hepatitis C, per patient untreated Cholelithiasis Right pleural effusion with consolidation atelectasis although infiltrate cannot be ruled out Plan: Monitor LFTs , bilirubin is trending down-monitor the need for MRCP HIDA scan was negative Stool studies currently pending UA Continue Xifaxan 550 mg p.o. twice daily. Continue lactulose Hepatitis C RNA -pending Continue antibiotics Ultrasound is negative for ascites Further recommendations based on clinical course EGD on Saturday to screen for esophageal varices - discussed with patient who is agreeable to proceed. Treatment of hepatitis C as an outpatient Patient seen in collaboration with Dr. Steven Subjective: Patient is complaining of right upper quadrant abdominal pain. She appears to be mildly lethargic. She is having bowel movements on lactulose. Titrate to 2-3 bowel movements daily. Bilirubin and LFTs are stable. Continue observation. Exam PHYSICAL EXAMINATION: GENERAL: Alert & oriented, obese, lethargic SKIN: No lesions HEAD: Normocephalic, atraumatic, no tenderness. EYES: Pupils equal reactive to light, no discharge. EARS/NOSE AND THROAT: Ears normal, nose normal,. NECK: Supple, no masses. CHEST: Inspection within normal limits. CARDIOVASCULAR: Heart: Regular rate and rhythm, tachycardia RESPIRATORY: Lungs clear to auscultation GASTROINTESTINAL AND LIVER: Abdomen: Soft, right upper quadrant tenderness, obese, no hernias, no masses, no organomegaly, no ascites, no guarding, no rebo und tenderness, normoactive bowel sounds. Rectal: Deferred. EXTREMITIES: BLE edema. Result Diagram: 10/25/18 0639 10/25/18 0639 Results 24hrs Laboratory Tests Test 10/24/18 17:26 10/24/18 21:12 10/25/18 01:01 10/25/18 06:38 Bedside Glucose 272 H 204 143 Magnesium Level 1.6 L Test 10/25/18 06:39 10/25/18 08:00 10/25/18 11:51 10/25/18 17:04 White Blood Count 3.4 #L Red Blood Count 3.81 L Hemoglobin 11.1 L Hematocrit 33.9 L Mean Corpuscular 89.0 Volume Mean Corpuscular 29.1 Hemoglobin Mean Corpuscular 32.7 Hemoglobin Concent Red Cell 15.7 H Distribution Width Platelet Count 60 L Mean Platelet Volume 9.5 Immature 1.200 H Granulocytes % Neutrophils % 63.0 Lymphocytes % 24.4 Monocytes % 10.2 Eosinophils % 0.0 Basophils % 1.2 Nucleated Red Blood 0.0 Cells % Immature 0.040 H Granulocytes # Neutrophils # 2.2 Lymphocytes # 0.8 Monocytes # 0.4 Eosinophils # 0.0 Basophils # 0.0 Nucleated Red Blood 0.0 Cells # Sodium Level 141 Potassium Level 4.0 Chloride Level 106 Carbon Dioxide Level 34 H Anion Gap 1 L Blood Urea Nitrogen 15 Creatinine 0.54 Est Glomerular > 60 Filtrat Rate mL/min Glucose Level 128 # Calcium Level 8.1 L Total Bilirubin 1.9 H Direct Bilirubin 0.00 Indirect Bilirubin 1.9 H Aspartate Amino 76 H Transf (AST/SGOT) Alanine 48 Aminotransferase (AL T/SGPT) Alkaline Phosphatase 113 Total Protein 6.8 Albumin 2.2 L Globulin 4.60 H Albumin/Globulin 0.47 Ratio Bedside Glucose 118 225 H 254 H CC: SAV STEVEN MD ; Exam/Review of Systems Exam Vitals Vital Signs Date Temp Pulse Resp B/P (MAP) Pulse Ox O2 O2 Flow FiO2 Time Delivery Rate 10/25/18 97.9 91 18 155/70 97 Room Air 14:05 (98) 10/25/18 2.0 09:39 10/23/18 21 01:05 Intake and Output 10/24/18 10/24/18 10/25/18 1515:00 23:00 07:00 IntakeIntake Total 1080 ml 100 ml OutputOutput Total 900 ml 500 ml BalanceBalance 180 ml 100 ml -500 ml Results Results 24hrs Laboratory Tests Test 10/24/18 17:26 10/24/18 21:12 10/25/18 01:01 10/25/18 06:38 Bedside Glucose 272 H 204 143 Magnesium Level 1.6 L Test 10/25/18 06:39 10/25/18 08:00 10/25/18 11:51 10/25/18 17:04 White Blood Count 3.4 #L Red Blood Count 3.81 L Hemoglobin 11.1 L Hematocrit 33.9 L Mean Corpuscular 89.0 Volume Mean Corpuscular 29.1 Hemoglobin Mean Corpuscular 32.7 Hemoglobin Concent Red Cell 15.7 H Distribution Width Platelet Count 60 L Mean Platelet Volume 9.5 Immature 1.200 H Granulocytes % Neutrophils % 63.0 Lymphocytes % 24.4 Monocytes % 10.2 Eosinophils % 0.0 Basophils % 1.2 Nucleated Red Blood 0.0 Cells % Immature 0.040 H Granulocytes # Neutrophils # 2.2 Lymphocytes # 0.8 Monocytes # 0.4 Eosinophils # 0.0 Basophils # 0.0 Nucleated Red Blood 0.0 Cells # Sodium Level 141 Potassium Level 4.0 Chloride Level 106 Carbon Dioxide Level 34 H Anion Gap 1 L Blood Urea Nitrogen 15 Creatinine 0.54 Est Glomerular > 60 Filtrat Rate mL/min Glucose Level 128 # Calcium Level 8.1 L Total Bilirubin 1.9 H Direct Bilirubin 0.00 Indirect Bilirubin 1.9 H Aspartate Amino 76 H Transf (AST/SGOT) Alanine 48 Aminotransferase (AL T/SGPT) Alkaline Phosphatase 113 Total Protein 6.8 Albumin 2.2 L Globulin 4.60 H Albumin/Globulin 0.47 Ratio Bedside Glucose 118 225 H 254 H Medications Medication Current Medications Albuterol/ Ipratropium (Duoneb) 3 ml Q2H RESP THERAPY PRN HHN SHORTNESS OF BREATH; Start 10/23/18 at 07:30 Piperacillin Sod/ Tazobactam Sod 100 ml @ 200 mls/hr Q6 IVPB Last administered on 10/25/18at 17:00; Admin Dose 200 MLS/HR; Start 10/23/18 at 12:00 IV Flush (NS 3 ml) 3 ml PER PROTOCOL IV ; Start 10/23/18 at 09:30 Ondansetron HCl (Zofran Inj) 4 mg Q6H PRN IV NAUSEA/VOMITING; Start 10/23/18 at 09:30 Acetaminophen (Tylenol Tab) 650 mg Q8H PRN PO .PAIN 1-3 OR TEMP Last administered on 10/23/18at 17:04; Admin Dose 650 MG; Start 10/23/18 at 09:30 Diagnostic Test (Pha) (Accu-Chek) 1 ea 02 XX Last administered on 10/25/18at 01:04; Admin Dose 1 EA; Start 10/24/18 at 02:00 Insulin Aspart (Novolog Insulin Pen) NOVOLOG *MILD* ALGORITHM WITH MEALS BEDTIME SC Last administered on 10/25/18 17:06; Admin Dose 3 UNIT; Start 10/23/18 at 12:00 Miscellaneous Information 1 ea NOTE XX ; Start 10/23/18 at 09:30 Glucose (Glutose) 15 gm Q15M PRN PO DECREASED GLUCOSE; Start 10/23/18 at 09:30 Glucose (Glutose) 22.5 gm Q15M PRN PO DECREASED GLUCOSE; Start 10/23/18 at 09:30 Dextrose (D50w Syringe) 25 ml Q15M PRN IV DECREASED GLUCOSE; Start 10/23/18 at 09:30 Dextrose (D50w Syringe) 50 ml Q15M PRN IV DECREASED GLUCOSE; Start 10/23/18 at 09:30 Glucagon (Glucagen) 1 mg Q15M PRN IM DECREASED GLUCOSE; Start 10/23/18 at 09:30 Glucose (Glutose) 15 gm Q15M PRN BUCCAL DECREASED GLUCOSE; Start 10/23/18 at 09:30 Rifaximin (Xifaxan) 550 mg BID PO Last administered on 10/25/18at 09:15; Admin Dose 550 MG; Start 10/23/18 at 21:00 Insulin Glargine (Lantus) 24 units DAILY@0800 SC Last administered on 10/25/18at 08:09; Admin Dose 24 UNITS; Start 10/23/18 at 11:30 Spironolactone (Aldactone) 50 mg BID DIURETICS PO Last administered on 10/25/18 17:00; Admin Dose 50 MG; Start 10/23/18 at 11:00 Tramadol HCl (Ultram) 50 mg Q6H PRN PO MODERATE PAIN LEVEL 4-6 Last administered on 10/25/18 09:43; Admin Dose 50 MG; Start 10/24/18 at 00:00 Insulin Aspart (Novolog Insulin Pen) 4 unit WITH MEALS SC Last administered on 10/25/18 17:07; Admin Dose 4 UNIT; Start 10/24/18 at 12:00 Lactulose (Enulose) 20 gm Q8 PO Last administered on 10/25/18 13:35; Admin Dose 20 GM; Start 10/24/18 at 14:00 Thiamine HCl (Vitamin B1) 100 mg DAILY PO Last administered on 10/25/18 09:17; Admin Dose 100 MG; Start 10/24/18 at 13:00 Fluoxetine HCl (Prozac) 20 mg DAILY PO Last administered on 10/25/18 09:17; Admin Dose 20 MG; Start 10/24/18 at 13:00 Zolpidem Tartrate (Ambien) 5 mg HS PRN PO INSOMNIA Last administered on 10/24/18 21:13; Admin Dose 5 MG; Start 10/24/18 at 13:00 Furosemide (Lasix) 40 mg DAILY PO Last administered on 10/25/18 09:17; Admin Dose 40 MG; Start 10/25/18 at 09:30 Famotidine (Pepcid) 20 mg DAILY PO Last administered on 10/25/18 09:15; Admin Dose 20 MG; Start 10/25/18 at 09:30 STEPHANIE MAN NP October 25, 2018 17:28
[2018-10-25 19:58] VITALS: BP 140/67; PULSE 85; RESP 18
[2018-10-25] MEDS: ZOLPIDEM 5 MG TAB PO PRN (21:09)
[2018-10-26] MEDS: ACCU-CHEK XX SCH (02:00)
[2018-10-26 02:19] VITALS: BP 128/64; PULSE 80; RESP 18
[2018-10-26] MEDS: LACTULOSE 30ML CUP PO SCH ×3 (05:37→21:24)
[2018-10-26] MEDS: SPIRONOLACTONE 50 MG TAB PO SCH ×2 (05:37→17:19)
[2018-10-26] MEDS: PIPER-TAZO 3.375 GM IV (PMX) 100 ML IVPB SCH ×4 (05:37→23:26)
[2018-10-26 07:30] VITALS: BP 172/78; PULSE 85; RESP 18
[2018-10-26] MEDS: INSULIN GLARGINE [LANTus] (100 UNITS/ML) SYG SC SCH (08:35)
[2018-10-26] MEDS: INSULIN ASPART [NOVOLOG] 3 ML PEN SC SCH ×7 (08:36→21:37)
[2018-10-26] MEDS: FLUOXETINE 20 MG CAP PO SCH (08:37)
[2018-10-26] MEDS: RIFAXIMIN 550 MG TAB PO SCH ×2 (08:38→21:36)
[2018-10-26] MEDS: FAMOTIDINE 20 MG TAB PO SCH (08:38)
[2018-10-26] MEDS: FUROSEMIDE 40 MG TAB PO SCH (08:38)
[2018-10-26] MEDS: THIAMINE 100 MG TAB PO SCH (08:39)
--- NOTE | 2018-10-26 10:09 | PN ---
Date/Time of Note Date/Time of Note DATE: 10/26/18 TIME: 10:07 Assessment/Plan VTE Prophylaxis Risk score (from Ns)>0 risk: 5 SCD applied (from Ns): Yes Pharmacological prophylaxis: heparin Lines/Catheters IV C[facility]from [facility] Mid Line Urinary Cath still in place: No Assessment/Plan Problems: (1) Cirrhosis of liver Status: Chronic Comment: Noted. Given the blood pressure and the pulse rate were going to go ahead and use nadolol to also help with portal pressures Qualifiers: Hepatic cirrhosis type: other cirrhosis Qualified Codes: K74.69 - Other cirrhosis of liver (2) Hepatitis C virus infection Status: Chronic Comment: Awaiting RNA levels. Qualifiers: Viral hepatitis chronicity: chronic Hepatic coma status: without hepatic coma Qualified Codes: B18.2 - Chronic viral hepatitis C (3) Portal hypertension with esophageal varices Status: Chronic Comment: Noted. As per gastroenterology consult (4) Diabetes mellitus type 2 in obese Status: Chronic Comment: Adequate glycemic control at the present time (5) Cholelithiasis Status: Chronic Comment: Noted. Per gastroenterology for MRCP Qualifiers: Cholelithiasis location: gallbladder Cholecystitis presence: without cholecystitis Biliary obstruction: without biliary obstruction Qualified Codes: K80.20 - Calculus of gallbladder without cholecystitis without obstruction (6) Gingivitis Status: Acute Comment: On antibiotic therapy Result Diagram: 10/25/18 0639 10/25/18 0639 Results 24hrs Laboratory Tests Test 10/25/18 11:51 10/25/18 17:04 10/25/18 20:44 10/26/18 02:33 Bedside Glucose 225 H 254 H 189 149 Test 10/26/18 08:28 Bedside Glucose 157 Subjective 24 Hr Interval Summary Free Text/Dictation Patient sleeping in bed snoring, easily awakened Constitutional: no complaints Respiratory: no complaints Cardiovascular: no complaints Gastrointestinal: no complaints Exam/Review of Systems Exam Vitals Vital Signs Date Temp Pulse Resp B/P (MAP) Pulse Ox O2 O2 Flow FiO2 Time Delivery Rate 10/26/18 98.0 85 18 172/78 93 Room Air 07:30 (109) 10/25/18 2.0 20:25 10/23/18 21 01:05 Intake and Output 10/25/18 10/25/18 10/26/18 1515:00 23:00 07:00 IntakeIntake Total 340 ml 100 ml 200 ml OutputOutput Total 300 ml BalanceBalance 340 ml -200 ml 200 ml Constitutional: alert Respiratory: clear to auscultation, normal air movement Cardiovascular: regular rate and rhythm, nl pulses Gastrointestinal: soft, nl liver, spleen, non-tender Results Results 24hrs Laboratory Tests Test 10/25/18 11:51 10/25/18 17:04 10/25/18 20:44 10/26/18 02:33 Bedside Glucose 225 H 254 H 189 149 Test 10/26/18 08:28 Bedside Glucose 157 Medications Medication Current Medications Albuterol/ Ipratropium (Duoneb) 3 ml Q2H RESP THERAPY PRN HHN SHORTNESS OF BREATH; Start 10/23/18 at 07:30 Piperacillin Sod/ Tazobactam Sod 100 ml @ 200 mls/hr Q6 IVPB Last administered on 10/26/18at 05:37; Admin Dose 200 MLS/HR; Start 10/23/18 at 12:00 IV Flush (NS 3 ml) 3 ml PER PROTOCOL IV ; Start 10/23/18 at 09:30 Ondansetron HCl (Zofran Inj) 4 mg Q6H PRN IV NAUSEA/VOMITING; Start 10/23/18 at 09:30 Acetaminophen (Tylenol Tab) 650 mg Q8H PRN PO .PAIN 1-3 OR TEMP Last administered on 10/23/18at 17:04; Admin Dose 650 MG; Start 10/23/18 at 09:30 Diagnostic Test (Pha) (Accu-Chek) 1 ea 02 XX Last administered on 10/25/18at 01:04; Admin Dose 1 EA; Start 10/24/18 at 02:00 Insulin Aspart (Novolog Insulin Pen) NOVOLOG *MILD* ALGORITHM WITH MEALS BEDTIME SC Last administered on 10/26/18at 08:36; Admin Dose 1 UNIT; Start 10/23/18 at 12:00 Miscellaneous Information 1 ea NOTE XX ; Start 10/23/18 at 09:30 Glucose (Glutose) 15 gm Q15M PRN PO DECREASED GLUCOSE; Start 10/23/18 at 09:30 Glucose (Glutose) 22.5 gm Q15M PRN PO DECREASED GLUCOSE; Start 10/23/18 at 09:30 Dextrose (D50w Syringe) 25 ml Q15M PRN IV DECREASED GLUCOSE; Start 10/23/18 at 09:30 Dextrose (D50w Syringe) 50 ml Q15M PRN IV DECREASED GLUCOSE; Start 10/23/18 at 09:30 Glucagon (Glucagen) 1 mg Q15M PRN IM DECREASED GLUCOSE; Start 10/23/18 at 09:30 Glucose (Glutose) 15 gm Q15M PRN BUCCAL DECREASED GLUCOSE; Start 10/23/18 at 09:30 Rifaximin (Xifaxan) 550 mg BID PO Last administered on 10/26/18 08:38; Admin Dose 550 MG; Start 10/23/18 at 21:00 Insulin Glargine (Lantus) 24 units DAILY@0800 SC Last administered on 10/26/18 08:35; Admin Dose 24 UNITS; Start 10/23/18 at 11:30 Spironolactone (Aldactone) 50 mg BID DIURETICS PO Last administered on 10/26/18 05:37; Admin Dose 50 MG; Start 10/23/18 at 11:00 Tramadol HCl (Ultram) 50 mg Q6H PRN PO MODERATE PAIN LEVEL 4-6 Last administered on 10/25/18 09:43; Admin Dose 50 MG; Start 10/24/18 at 00:00 Insulin Aspart (Novolog Insulin Pen) 4 unit WITH MEALS SC Last administered on 10/26/18 08:37; Admin Dose 4 UNIT; Start 10/24/18 at 12:00 Lactulose (Enulose) 20 gm Q8 PO Last administered on 10/26/18 05:37; Admin Dose 20 GM; Start 10/24/18 at 14:00 Thiamine HCl (Vitamin B1) 100 mg DAILY PO Last administered on 10/26/18 08:39; Admin Dose 100 MG; Start 10/24/18 at 13:00 Fluoxetine HCl (Prozac) 20 mg DAILY PO Last administered on 10/26/18 08:37; Admin Dose 20 MG; Start 10/24/18 at 13:00 Zolpidem Tartrate (Ambien) 5 mg HS PRN PO INSOMNIA Last administered on 10/25/18 21:09; Admin Dose 5 MG; Start 10/24/18 at 13:00 Furosemide (Lasix) 40 mg DAILY PO Last administered on 5/12/19at 08:38; Admin Dose 40 MG; Start 10/25/18 at 09:30 Famotidine (Pepcid) 20 mg DAILY PO Last administered on 10/26/18at 08:38; Admin Dose 20 MG; Start 10/25/18 at 09:30 KARRIE MONTANA MD October 26, 2018 10:09
[2018-10-26] MEDS: NADOLOL 40 MG TAB PO SCH (11:44)
[2018-10-26 14:19] VITALS: BP 132/69; PULSE 18; RESP 18
[2018-10-26] MEDS: traMADol 50 MG TAB PO PRN ×2 (15:16→21:36)
--- NOTE | 2018-10-26 16:51 | PN ---
Date/Time of Note Date/Time of Note DATE: 10/26/18 TIME: 16:42 Assessment/Plan VTE Prophylaxis Risk score (from Ns)>0 risk: 5 SCD applied (from Ns): Yes Pharmacological prophylaxis: NA/contraindicated Pharm contraindication: liver dx Lines/Catheters [facility]from [facility] Mid Line Urinary Cath still in place: No Assessment/Plan Assessment/Plan Assessment: Sepsis Diarrhea- stool studies pending Cirrhosis -Thrombocytopenia -Coagulopathy, mild Splenomegaly Imaging findings suggestive of portal HTN Elevated LFTs with indirect hyperbilirubinemia Normocytic anemia DM History of hepatitis C, per patient untreated Cholelithiasis Right pleural effusion with consolidation atelectasis although infiltrate cannot be ruled out Plan: Monitor LFTs , bilirubin is trending down-monitor the need for MRCP HIDA scan was negative Stool studies - coliform, c-diff negative Continue Xifaxan 550 mg p.o. twice daily. Continue lactulose Hepatitis C RNA -pending Continue antibiotics Ultrasound is negative for ascites Further recommendations based on clinical course EGD on Saturday to screen for esophageal varices - discussed with patient who is agreeable to proceed. NPO after midnight. Treatment of hepatitis C as an outpatient Patient seen in collaboration with Dr. Steven Subjective: Patient is doing well today. She denies abdominal pain, She is tolerating diet. She is having bowel movements on lactulose. Titrate to 2-3 bowel movements daily. Bilirubin and LFTs are stable. Continue observation. Exam PHYSICAL EXAMINATION: GENERAL: Alert & oriented, obese, lethargic SKIN: No lesions HEAD: Normocephalic, atraumatic, no tenderness. EYES: Pupils equal reactive to light, no discharge. EARS/NOSE AND THROAT: Ears normal, nose normal,. NECK: Supple, no masses. CHEST: Inspection within normal limits. CARDIOVASCULAR: Heart: Regular rate and rhythm, tachycardia RESPIRATORY: Lungs clear to auscultation GASTROINTESTINAL AND LIVER: Abdomen: Soft, right upper quadrant tenderness, obese, no hernias, no masses, no organomegaly, no ascites, no guarding, no rebound tenderness, normoactive bowel sounds. Rectal: Deferred. EXTREMITIES: BLE edema. Result Diagram: 10/25/18 0639 10/25/18 0639 Results 24hrs Laboratory Tests Test 10/25/18 17:04 10/25/18 20:44 10/26/18 02:33 10/26/18 08:28 Bedside Glucose 254 H 189 149 157 Test 10/26/18 12:36 Bedside Glucose 268 H CC: SAV STEVEN MD ; Exam/Review of Systems Exam Vitals Vital Signs Date Temp Pulse Resp B/P (MAP) Pulse Ox O2 O2 Flow FiO2 Time Delivery Rate 10/26/18 98.2 18 18 132/69 90 Room Air 14:19 (90) 10/25/18 2.0 20:25 10/23/18 21 01:05 Intake and Output 10/25/18 10/25/18 10/26/18 1515:00 23:00 07:00 IntakeIntake Total 340 ml 100 ml 200 ml OutputOutput Total 300 ml BalanceBalance 340 ml -200 ml 200 ml Results Results 24hrs Laboratory Tests Test 10/25/18 17:04 10/25/18 20:44 10/26/18 02:33 10/26/18 08:28 Bedside Glucose 254 H 189 149 157 Test 10/26/18 12:36 Bedside Glucose 268 H Medications Medication Current Medications Albuterol/ Ipratropium (Duoneb) 3 ml Q2H RESP THERAPY PRN HHN SHORTNESS OF BREATH; Start 10/23/18 at 07:30 Piperacillin Sod/ Tazobactam Sod 100 ml @ 200 mls/hr Q6 IVPB Last administered on 10/26/18at 11:48; Admin Dose 200 MLS/HR; Start 10/23/18 at 12:00 IV Flush (NS 3 ml) 3 ml PER PROTOCOL IV ; Start 10/23/18 at 09:30 Ondansetron HCl (Zofran Inj) 4 mg Q6H PRN IV NAUSEA/VOMITING; Start 10/23/18 at 09:30 Acetaminophen (Tylenol Tab) 650 mg Q8H PRN PO .PAIN 1-3 OR TEMP Last administered on 10/23/18at 17:04; Admin Dose 650 MG; Start 10/23/18 at 09:30 Diagnostic Test (Pha) (Accu-Chek) 1 ea 02 XX Last administered on 10/25/18at 01:04; Admin Dose 1 EA; Start 10/24/18 at 02:00 Insulin Aspart (Novolog Insulin Pen) NOVOLOG *MILD* ALGORITHM WITH MEALS BEDTIME SC Last administered on 10/26/18at 12:40; Admin Dose 4 UNIT; Start 10/23/18 at 12:00 Miscellaneous Information 1 ea NOTE XX ; Start 10/23/18 at 09:30 Glucose (Glutose) 15 gm Q15M PRN PO DECREASED GLUCOSE; Start 10/23/18 at 09:30 Glucose (Glutose) 22.5 gm Q15M PRN PO DECREASED GLUCOSE; Start 10/23/18 at 09:30 Dextrose (D50w Syringe) 25 ml Q15M PRN IV DECREASED GLUCOSE; Start 10/23/18 at 09:30 Dextrose (D50w Syringe) 50 ml Q15M PRN IV DECREASED GLUCOSE; Start 10/23/18 at 09:30 Glucagon (Glucagen) 1 mg Q15M PRN IM DECREASED GLUCOSE; Start 10/23/18 at 09:30 Glucose (Glutose) 15 gm Q15M PRN BUCCAL DECREASED GLUCOSE; Start 10/23/18 at 09:30 Rifaximin (Xifaxan) 550 mg BID PO Last administered on 10/26/18at 08:38; Admin Dose 550 MG; Start 10/23/18 at 21:00 Insulin Glargine (Lantus) 24 units DAILY@0800 SC Last administered on 10/26/18at 08:35; Admin Dose 24 UNITS; Start 10/23/18 at 11:30 Spironolactone (Aldactone) 50 mg BID DIURETICS PO Last administered on 10/26/18at 05:37; Admin Dose 50 MG; Start 10/23/18 at 11:00 Tramadol HCl (Ultram) 50 mg Q6H PRN PO MODERATE PAIN LEVEL 4-6 Last administered on 10/26/18at 15:16; Admin Dose 50 MG; Start 10/24/18 at 00:00 Insulin Aspart (Novolog Insulin Pen) 4 unit WITH MEALS SC Last administered on 10/26/18at 12:42; Admin Dose 4 UNIT; Start 10/24/18 at 12:00 Lactulose (Enulose) 20 gm Q8 PO Last administered on 10/26/18at 05:37; Admin Dose 20 GM; Start 10/24/18 at 14:00 Thiamine HCl (Vitamin B1) 100 mg DAILY PO Last administered on 10/26/18at 08:39; Admin Dose 100 MG; Start 10/24/18 at 13:00; Stop 11/03/18 at 12:59 Fluoxetine HCl (Prozac) 20 mg DAILY PO Last administered on 10/26/18 08:37; Admin Dose 20 MG; Start 10/24/18 at 13:00 Zolpidem Tartrate (Ambien) 5 mg HS PRN PO INSOMNIA Last administered on 10/25/18 21:09; Admin Dose 5 MG; Start 10/24/18 at 13:00 Furosemide (Lasix) 40 mg DAILY PO Last administered on 10/26/18 08:38; Admin Dose 40 MG; Start 10/25/18 at 09:30 Famotidine (Pepcid) 20 mg DAILY PO Last administered on 10/26/18 08:38; Admin Dose 20 MG; Start 10/25/18 at 09:30 Nadolol (Corgard) 40 mg DAILY PO Last administered on 10/26/18 11:44; Admin Dose 40 MG; Start 10/26/18 at 11:20 STEPHANIE MAN NP October 26, 2018 16:51
[2018-10-26 20:24] VITALS: BP 119/57; PULSE 68; RESP 18
[2018-10-26] MEDS: ZOLPIDEM 5 MG TAB PO PRN (23:26)
[2018-10-27] VITALS (12 sets, daily range): BP systolic 82–138; BP diastolic 54–75; PULSE 65–92; RESP 10–18
[2018-10-27] MEDS: ACCU-CHEK XX SCH (02:00)
[2018-10-27] MEDS: SPIRONOLACTONE 50 MG TAB PO SCH ×2 (05:59→17:37)
[2018-10-27] MEDS: LACTULOSE 30ML CUP PO SCH ×3 (05:59→21:15)
[2018-10-27] MEDS: PIPER-TAZO 3.375 GM IV (PMX) 100 ML IVPB SCH ×2 (05:59→11:07)
[2018-10-27] MEDS ORDERED: PROPOFOL 200 MG INJ ONE (07:00)
[2018-10-27] MEDS: INSULIN ASPART [NOVOLOG] 3 ML PEN SC SCH ×7 (08:00→21:18)
[2018-10-27] MEDS: INSULIN GLARGINE [LANTus] (100 UNITS/ML) SYG SC SCH (08:00)
[2018-10-27] MEDS: NADOLOL 40 MG TAB PO SCH (09:00)
[2018-10-27] MEDS: FAMOTIDINE 20 MG TAB PO SCH (09:00)
[2018-10-27] MEDS: RIFAXIMIN 550 MG TAB PO SCH ×2 (09:00→21:15)
[2018-10-27] MEDS: FUROSEMIDE 40 MG TAB PO SCH (09:00)
[2018-10-27] MEDS: FLUOXETINE 20 MG CAP PO SCH (09:00)
[2018-10-27] MEDS: THIAMINE 100 MG TAB PO SCH (09:00)
--- NOTE | 2018-10-27 13:16 | PN ---
Date/Time of Note Date/Time of Note DATE: 10/27/18 TIME: 13:16 Assessment/Plan VTE Prophylaxis Risk score (from Ns)>0 risk: 5 SCD applied (from Ns): Yes Pharmacological prophylaxis: NA/contraindicated Pharm contraindication: liver dx Lines/Catheters [facility]from [facility] Mid Line Urinary Cath still in place: No Assessment/Plan Hospital Course SUBJECTIVE:no acute episodes. OBJECTIVE: Vital signs-see below PHYSICAL EXAM: Constitutional: Morbidly obese female,not in acute distress. HEENT: Head atraumatic and normocephalic. Eyes: Extraocular muscles intact. Anicteric sclerae. Pupils equal bilaterally, reactive to light. NECK: Supple without lymph node. CHEST: Coarse breath sounds w/mild expiratory wheeze greater on right side. HEART: S1, S2. Regular rate and rhythm. ABDOMEN: Tenderness to all 4 quadrants, no rebound tenderness. Bowel sounds were present. EXTREMITIES: non-pitting edema bilateral lower extremities-improved. Chronic venous stasis changes appreciated. No cyanosis or clubbing appreciated. NEUROLOGIC: Confused. Alert and oriented x2. No focal deficit. No sensory deficit. PSYCHOSOCIAL: No signs of depression. INTEGUMENTARY: No open wounds. ASSESSMENT AND PLAN:58-year-old morbidly obese homeless female with a history of untreated hepatitis C, liver cirrhosis/ascites with history of paracentesis, thrombocytopenia, pleural effusion with history of thoracentesis,dm2, anemia,meth abuse and noncompliance here with worsening shortness of breath/ confusion, abdominal pain,incontinence, nonbloody diarrhea x2 days duration... Sepsis -Most suspect source: Intra-abdominal/respiratory -Resolved. Cultures negative. Stop iv zosyn Nonbloody diarrhea/abdominal pain,likely gastroenteritis -symptoms resolved -infectious diarrhea ruled out. Acute on chronic toxic encephalopathy w/hyperammonemia. -Mentation back to normal. -cont. lactulose/ rifaximin. -cessation of substance abuse Community acquired pneumonia -Clinically improved -De-escalate antibiotic to oral Levaquin 5 more days. R pleural effusion -stable and appears to be a chronic problem and was ruled out for malignancy with previous admissions -Continue diuretics Untreated hepatitis C -GI follow-up Liver cirrhosis w/sequela of splenomegaly/thrombocytopenia/portal HTN - Secondary to hepatitis C and alcohol. - cont lasix, spironolactone,Corgard - Ammonia detoxicant DMII: - stable glycemic control - Basal/bolus Untreated hepatitis C -Outpatient GI follow-up Cholelithiasis without cholecystitis -monitor Chronic lymphedema -Improved significantly -cont.elevation of affected extremities Chronic anemia -Stable H&H. Monitor. Homelessness/Meth abuse -Patient was previously placed in a care home where she went AMA back to the streets. -SW f/u Morbid obesity with BMI 41.6. -Lifestyle changes advised. Noncompliance -Counselled Major depressive disorders -Appreciate psych recommendations, on medications. DVT prophylaxis: SCDs, chemical anti-correlation contraindicated with abnormal liver function/coagulopathies. PUD prophylaxis: Pepcid Dispo: Overall, patient with improvement in her symptoms brought her here. She is with no further diarrhea or abdominal pain. Her mental status is back to baseline. At this time, we will request physical therapy evaluation to determine appropriate disposition. Please note patient is homeless. Patient is also getting EGD today per GI notes. Patient was seen in collaboration with Dr. Gamez. Result Diagram: 10/25/18 0639 10/25/18 0639 Results 24hrs Laboratory Tests Test 10/26/18 17:08 10/26/18 21:22 10/27/18 01:43 10/27/18 08:31 Bedside Glucose 267 H 227 H 121 121 Test 10/27/18 12:17 Bedside Glucose 110 Exam/Review of Systems Exam Vitals Vital Signs Date Temp Pulse Resp B/P (MAP) Pulse Ox O2 O2 Flow FiO2 Time Delivery Rate 10/27/18 98.2 92 18 126/75 93 08:00 (92) 10/26/18 Nasal 2.0 20:25 Cannula Intake and Output 10/26/18 10/26/18 10/27/18 1515:00 23:00 07:00 IntakeIntake Total 700 ml 800 ml 200 ml OutputOutput Total 1100 ml 200 ml BalanceBalance -400 ml 800 ml 0 ml Results Results 24hrs Laboratory Tests Test 10/26/18 17:08 10/26/18 21:22 10/27/18 01:43 10/27/18 08:31 Bedside Glucose 267 H 227 H 121 121 Test 10/27/18 12:17 Bedside Glucose 110 Medications Medication Current Medications Albuterol/ Ipratropium (Duoneb) 3 ml Q2H RESP THERAPY PRN HHN SHORTNESS OF BREATH; Start 10/23/18 at 07:30 Piperacillin Sod/ Tazobactam Sod 100 ml @ 200 mls/hr Q6 IVPB Last administered on 10/27/18at 11:07; Admin Dose 200 MLS/HR; Start 10/23/18 at 12:00 IV Flush (NS 3 ml) 3 ml PER PROTOCOL IV ; Start 10/23/18 at 09:30 Ondansetron HCl (Zofran Inj) 4 mg Q6H PRN IV NAUSEA/VOMITING; Start 10/23/18 at 09:30 Acetaminophen (Tylenol Tab) 650 mg Q8H PRN PO .PAIN 1-3 OR TEMP Last administered on 10/23/18at 17:04; Admin Dose 650 MG; Start 10/23/18 at 09:30 Diagnostic Test (Pha) (Accu-Chek) 1 ea 02 XX Last administered on 10/25/18at 01:04; Admin Dose 1 EA; Start 10/24/18 at 02:00 Insulin Aspart (Novolog Insulin Pen) NOVOLOG *MILD* ALGORITHM WITH MEALS BEDTIME SC Last administered on 10/26/18at 21:37; Admin Dose 2 UNIT; Start 10/23/18 at 12:00 Miscellaneous Information 1 ea NOTE XX ; Start 10/23/18 at 09:30 Glucose (Glutose) 15 gm Q15M PRN PO DECREASED GLUCOSE; Start 10/23/18 at 09:30 Glucose (Glutose) 22.5 gm Q15M PRN PO DECREASED GLUCOSE; Start 10/23/18 at 09:30 Dextrose (D50w Syringe) 25 ml Q15M PRN IV DECREASED GLUCOSE; Start 10/23/18 at 09:30 Dextrose (D50w Syringe) 50 ml Q15M PRN IV DECREASED GLUCOSE; Start 10/23/18 at 09:30 Glucagon (Glucagen) 1 mg Q15M PRN IM DECREASED GLUCOSE; Start 10/23/18 at 09:30 Glucose (Glutose) 15 gm Q15M PRN BUCCAL DECREASED GLUCOSE; Start 10/23/18 at 09:30 Rifaximin (Xifaxan) 550 mg BID PO Last administered on 10/26/18at 21:36; Admin Dose 550 MG; Start 10/23/18 at 21:00 Insulin Glargine (Lantus) 24 units DAILY@0800 SC Last administered on 10/26/18 08:35; Admin Dose 24 UNITS; Start 10/23/18 at 11:30 Spironolactone (Aldactone) 50 mg BID DIURETICS PO Last administered on 10/27/18 05:59; Admin Dose 50 MG; Start 10/23/18 at 11:00 Tramadol HCl (Ultram) 50 mg Q6H PRN PO MODERATE PAIN LEVEL 4-6 Last administered on 10/26/18 21:36; Admin Dose 50 MG; Start 10/24/18 at 00:00 Insulin Aspart (Novolog Insulin Pen) 4 unit WITH MEALS SC Last administered on 10/27/18 09:26; Admin Dose 4 UNIT; Start 10/24/18 at 12:00 Lactulose (Enulose) 20 gm Q8 PO Last administered on 10/26/18 05:37; Admin Dose 20 GM; Start 10/24/18 at 14:00 Thiamine HCl (Vitamin B1) 100 mg DAILY PO Last administered on 10/26/18 08:39; Admin Dose 100 MG; Start 10/24/18 at 13:00; Stop 11/03/18 at 12:59 Fluoxetine HCl (Prozac) 20 mg DAILY PO Last administered on 10/26/18 08:37; Admin Dose 20 MG; Start 10/24/18 at 13:00 Zolpidem Tartrate (Ambien) 5 mg HS PRN PO INSOMNIA Last administered on 10/26/18 23:26; Admin Dose 5 MG; Start 10/24/18 at 13:00 Furosemide (Lasix) 40 mg DAILY PO Last administered on 10/26/18 08:38; Admin Dose 40 MG; Start 10/25/18 at 09:30 Famotidine (Pepcid) 20 mg DAILY PO Last administered on 10/26/18 08:38; Admin Dose 20 MG; Start 10/25/18 at 09:30 Nadolol (Corgard) 40 mg DAILY PO Last administered on 10/26/18 11:44; Admin Dose 40 MG; Start 10/26/18 at 11:20 CAT MARTÍNEZ NP October 27, 2018 13:16
[2018-10-27] MEDS ORDERED: LIDOCAINE 100 MG SYRINGE ONE (15:20)
[2018-10-27] MEDS ORDERED: PROPOFOL 40 ML ONE (15:20)
[2018-10-27] MEDS ORDERED: FENTAnyl 50 MCG/ML VIAL ONE (15:20)
--- NOTE | 2018-10-27 15:22 | HPN ---
Date/Time of Note Date/Time of Note DATE: 10/27/18 TIME: 15:22 Interval H&P Admission Note Pt. seen H&P reviewed: No system changes TERRY VILLALTA October 27, 2018 15:22
--- NOTE | 2018-10-27 15:25 | PREAC ---
Date/Time of Note Date/Time of Note DATE: 10/27/18 TIME: 15:24 Anesthesia Eval and Record Evaluation Time Pre-Procedure Interview DATE: 10/27/18 TIME: 15:24 Age 58 Sex female NPO: 8 hrs Preoperative diagnosis cirrhosis, esophageal varices Planned procedure egd Past Medical History Past Medical History: Includes Cardio: HTN Endo: Diabetes GI: Morbid obesity, Other (cirrhosis) Infection(s): Hep C Surgery & Anesthesia Issues No known issue Meds Anticoagulation: No Beta Bernabe within 24 hr: No Reason Beta Bernabe not given: Pt. not on B-Bernabe Discontinued Reported Medications Hydrocodone/Acetaminophen ([place]gon[place] 5-325 Tablet) 1 Each Tablet, 1 EACH PO Q6 PRN for prn, TAB FROM [facility] 05/28/18 Discontinued Scripts Spironolactone* (Aldactone*) 100 Mg Tablet, 100 MG PO DAILY, #60 TAB 3 [facility]18 Sertraline Hcl* (Zoloft*) 100 Mg Tablet, 100 MG PO DAILY, #30 TAB 1 [facility] from [place] [facility] Pantoprazole* (Protonix*) 40 Mg Tablet.dr, 40 MG PO DAILY, #30 TAB 1 Refill From [facility] Prov:JAMARI WILSON S. 07/28/18 Current Medications Albuterol/ Ipratropium (Duoneb) 3 ml Q2H RESP THERAPY PRN HHN SHORTNESS OF BREATH; Start 10/23/18 at 07:30 IV Flush (NS 3 ml) 3 ml PER PROTOCOL IV ; Start 10/23/18 at 09:30 Ondansetron HCl (Zofran Inj) 4 mg Q6H PRN IV NAUSEA/VOMITING; Start 10/23/18 at 09:30 Acetaminophen (Tylenol Tab) 650 mg Q8H PRN PO .PAIN 1-3 OR TEMP Last administered on 10/23/18at 17:04; Admin Dose 650 MG; Start 10/23/18 at 09:30 Diagnostic Test (Pha) (Accu-Chek) 1 ea 02 XX Last administered on 10/25/18at 01:04; Admin Dose 1 EA; Start 10/24/18 at 02:00 Insulin Aspart (Novolog Insulin Pen) NOVOLOG *MILD* ALGORITHM WITH MEALS BEDTIME SC Last administered on 10/26/18 21:37; Admin Dose 2 UNIT; Start 10/23/18 at 12:00 Miscellaneous Information 1 ea NOTE XX ; Start 10/23/18 at 09:30 Glucose (Glutose) 15 gm Q15M PRN PO DECREASED GLUCOSE; Start 10/23/18 at 09:30 Glucose (Glutose) 22.5 gm Q15M PRN PO DECREASED GLUCOSE; Start 10/23/18 at 09:30 Dextrose (D50w Syringe) 25 ml Q15M PRN IV DECREASED GLUCOSE; Start 10/23/18 at 09:30 Dextrose (D50w Syringe) 50 ml Q15M PRN IV DECREASED GLUCOSE; Start 10/23/18 at 09:30 Glucagon (Glucagen) 1 mg Q15M PRN IM DECREASED GLUCOSE; Start 10/23/18 at 09:30 Glucose (Glutose) 15 gm Q15M PRN BUCCAL DECREASED GLUCOSE; Start 10/23/18 at 09:30 Rifaximin (Xifaxan) 550 mg BID PO Last administered on 10/26/18 21:36; Admin Dose 550 MG; Start 10/23/18 at 21:00 Insulin Glargine (Lantus) 24 units DAILY@0800 SC Last administered on 10/26/18 08:35; Admin Dose 24 UNITS; Start 10/23/18 at 11:30 Spironolactone (Aldactone) 50 mg BID DIURETICS PO Last administered on 10/27/18 05:59; Admin Dose 50 MG; Start 10/23/18 at 11:00 Tramadol HCl (Ultram) 50 mg Q6H PRN PO MODERATE PAIN LEVEL 4-6 Last administered on 10/26/18 21:36; Admin Dose 50 MG; Start 10/24/18 at 00:00 Insulin Aspart (Novolog Insulin Pen) 4 unit WITH MEALS SC Last administered on 10/27/18 09:26; Admin Dose 4 UNIT; Start 10/24/18 at 12:00 Lactulose (Enulose) 20 gm Q8 PO Last administered on 10/26/18 05:37; Admin Dose 20 GM; Start 10/24/18 at 14:00 Thiamine HCl (Vitamin B1) 100 mg DAILY PO Last administered on 10/26/18 08:39; Admin Dose 100 MG; Start 10/24/18 at 13:00; Stop 11/03/18 at 12:59 Fluoxetine HCl (Prozac) 20 mg DAILY PO Last administered on 10/26/18at 08:37; Admin Dose 20 MG; Start 10/24/18 at 13:00 Zolpidem Tartrate (Ambien) 5 mg HS PRN PO INSOMNIA Last administered on 10/26/18at 23:26; Admin Dose 5 MG; Start 10/24/18 at 13:00 Furosemide (Lasix) 40 mg DAILY PO Last administered on 10/26/18at 08:38; Admin Dose 40 MG; Start 10/25/18 at 09:30 Famotidine (Pepcid) 20 mg DAILY PO Last administered on 10/26/18at 08:38; Admin Dose 20 MG; Start 10/25/18 at 09:30 Nadolol (Corgard) 40 mg DAILY PO Last administered on 10/26/18at 11:44; Admin Dose 40 MG; Start 10/26/18 at 11:20 Levofloxacin (Levaquin) 500 mg DAILY@06 PO ; Start 10/27/18 at 15:30; Stop 11/01/18 at 15:29 Meds reviewed: Yes Allergies Coded Allergies: vancomycin (Unverified Allergy, Intermediate, 10/23/18) PER REPORT ibuprofen (Unverified Adverse Reaction, Mild, SICK TO HER STOMACH, 10/23/18) Allergies Reviewed: Yes Labs/Studies Labs Reviewed: Reviewed by anesthesiologist Result Diagram: 10/25/1839 10/25/1839 test: N/A Pre-procedure Exam Last vitals Vital Signs Date Temp Pulse Resp B/P (MAP) Pulse Ox O2 O2 Flow FiO2 Time Delivery Rate 10/27/18 97.7 68 18 115/62 91 Room Air 15:19 (79) 10/26/18 2.0 20:25 Airway: Adequate mouth opening, Adequate thyromental dist Mallampati: Mallampati III Teeth: Abnormal (no teeth) Lung: Normal Heart: Normal ASA Physical Status ASA physical status: 4 Emergency: None Planned Anesthetic General/MAC: MAC Planned Pain Management Parenteral pain med Pre-operative Attestations Prior to commencing anesthesia and surgery, the patient was re-evaluated, there was verification of: *The patient's identity *The results of appropriate recent lab work and preoperative vital signs *The above evaluation not changing prior to induction *Anesthetic plan, risk benefits, alternative and complications discussed with patient/family; questions answered; patient/family understands, accepts and wishes to proceed. Sahil Mccoy M.D. October 27, 2018 15:25
--- NOTE | 2018-10-27 15:36 | PAC ---
Date/Time of Note Date/Time of Note DATE: 10/27/18 TIME: 15:36 Post-Anesthesia Notes Post-Anesthesia Note Last documented vital signs Vital Signs Date Temp Pulse Resp B/P (MAP) Pulse Ox O2 O2 Flow FiO2 Time Delivery Rate 10/27/18 97.7 68 18 115/62 91 Room Air 15:19 (79) 10/26/18 2.0 20:25 Activity: WNL Respiratory function: WNL Cardiovascular function: WNL Mental status: Baseline Pain reasonably controlled: Yes Hydration appropriate: Yes Nausea/Vomiting absent: Yes Sahil Mccoy M.D. October 27, 2018 15:36
[2018-10-27] MEDS: LEVOFLOXACIN 500 MG TAB PO SCH (16:42)
[2018-10-27] MEDS: ZOLPIDEM 5 MG TAB PO PRN (21:15)
[2018-10-28] MEDS: ACCU-CHEK XX SCH (01:50)
[2018-10-28 02:00] VITALS: BP 109/59; PULSE 67; RESP 18
[2018-10-28] MEDS: LACTULOSE 30ML CUP PO SCH ×3 (05:13→21:41)
[2018-10-28] MEDS: LEVOFLOXACIN 500 MG TAB PO SCH (05:23)
[2018-10-28] MEDS: SPIRONOLACTONE 50 MG TAB PO SCH ×2 (05:23→18:06)
[2018-10-28 07:33] VITALS: BP 99/54; PULSE 80; RESP 16
[2018-10-28] MEDS: INSULIN ASPART [NOVOLOG] 3 ML PEN SC SCH ×7 (08:00→21:00)
[2018-10-28] MEDS: INSULIN GLARGINE [LANTus] (100 UNITS/ML) SYG SC SCH (08:37)
[2018-10-28] MEDS: THIAMINE 100 MG TAB PO SCH (08:37)
[2018-10-28] MEDS: RIFAXIMIN 550 MG TAB PO SCH ×2 (08:37→21:39)
[2018-10-28] MEDS: FUROSEMIDE 40 MG TAB PO SCH (08:37)
[2018-10-28] MEDS: FLUOXETINE 20 MG CAP PO SCH (08:38)
[2018-10-28] MEDS: NADOLOL 40 MG TAB PO SCH (08:38)
[2018-10-28] MEDS: FAMOTIDINE 20 MG TAB PO SCH (08:38)
[2018-10-28] MEDS ORDERED: MAGNESIUM SULFATE 4 GM/100 ML 100 ML IVPB ONE (10:00)
--- NOTE | 2018-10-28 12:57 | PN ---
Date/Time of Note Date/Time of Note DATE: 10/28/18 TIME: 12:54 Assessment/Plan VTE Prophylaxis Risk score (from Ns)>0 risk: 3 SCD applied (from [facility] [place] [facility]): Yes Pharmacological prophylaxis: NA/contraindicated Pharm contraindication: blood coag disorder, liver dx Lines/Catheters IV [facility]ter Type (from [facility] Mid Line Urinary Cath still in place: No Assessment/Plan Hospital Course SUBJECTIVE:no acute episodes. OBJECTIVE: Vital signs-see below PHYSICAL EXAM: Constitutional: Morbidly obese female,not in acute distress. HEENT: Head atraumatic and normocephalic. Eyes: Extraocular muscles intact. Anicteric sclerae. Pupils equal bilaterally, reactive to light. NECK: Supple without lymph node. CHEST: Coarse breath sounds w/mild expiratory wheeze greater on right side. HEART: S1, S2. Regular rate and rhythm. ABDOMEN: Tenderness to all 4 quadrants, no rebound tenderness. Bowel sounds were present. EXTREMITIES: non-pitting edema bilateral lower extremities-improved. Chronic venous stasis changes appreciated. No cyanosis or clubbing appreciated. NEUROLOGIC: Confused. Alert and oriented x2. No focal deficit. No sensory deficit. PSYCHOSOCIAL: No signs of depression. INTEGUMENTARY: No open wounds. ASSESSMENT AND PLAN:58-year-old morbidly obese homeless female with a history of untreated hepatitis C, liver cirrhosis/ascites with history of paracentesis, th rombocytopenia, pleural effusion with history of thoracentesis,dm2, anemia,meth abuse and noncompliance here with worsening shortness of breath/ confusion, abdominal pain,incontinence, nonbloody diarrhea x2 days duration... Sepsis -Most suspect source: Intra-abdominal/respiratory -Resolved. Cultures negative. Nonbloody diarrhea/abdominal pain,likely gastroenteritis -symptoms resolved -infectious diarrhea ruled out. Acute on chronic toxic encephalopathy w/hyperammonemia. -Mentation back to normal. -cont. lactulose/ rifaximin. -cessation of substance abuse Community acquired pneumonia -Clinically improved -ON oral Levaquin w/stop date on it R pleural effusion -stable and appears to be a chronic problem and was ruled out for malignancy with previous admissions -Continue diuretics Untreated hepatitis C -GI follow-up Liver cirrhosis w/sequela of splenomegaly/thrombocytopenia/portal HTN - Secondary to hepatitis C and alcohol. - cont lasix, spironolactone,Corgard - Ammonia detoxicant DMII: - stable glycemic control - Basal/bolus Untreated hepatitis C -Outpatient GI follow-up Cholelithiasis without cholecystitis -monitor Chronic lymphedema -Improved significantly -cont.elevation of affected extremities Chronic anemia -Stable H&H. Monitor. Homelessness/Meth abuse -Patient was previously placed in a jail where she went AMA back to the streets. She requires a SNF per PT notes. -SW f/u Morbid obesity with BMI 41.6. -Lifestyle changes advised. Noncompliance -Counselled Major depressive disorders -Appreciate psych recommendations, on medications. DVT prophylaxis: SCDs, chemical anti-correlation contraindicated with abnormal liver function/coagulopathies. PUD prophylaxis: Pepcid Dispo: Patient remains medically stable. Physical therapy notes reviewed and recommended fdc facility for further inpatient rehabilitation. Case management/psychiatric social worker supervisor to follow-up on this. Her homelessness/substance abuse will be a major barrier along with her previous history of AMA discharge from jail to find appropriate placement. Patient was seen in collaboration with Dr. Gamez. Result Diagram: 10/28/18 0503 10/28/18 0503 Results 24hrs Laboratory Tests Test 10/27/18 16:39 10/27/18 21:13 10/28/18 01:48 10/28/18 05:03 Bedside Glucose 101 272 H 90 White Blood Count 5.3 # Red Blood Count 4.39 Hemoglobin 12.6 Hematocrit 38.4 Mean Corpuscular 87.5 Volume Mean Corpuscular 28.7 L Hemoglobin Mean Corpuscular 32.8 Hemoglobin Concent Red Cell 15.6 H Distribution Width Platelet Count 74 #L Mean Platelet 10.3 Volume Immature 1.700 H Granulocytes % Neutrophils % 56.5 Lymphocytes % 28.7 Monocytes % 11.6 H Eosinophils % 0.0 Basophils % 1.5 Nucleated Red 0.0 Blood Cells % Immature 0.090 H Granulocytes # Neutrophils # 3.0 Lymphocytes # 1.5 Monocytes # 0.6 Eosinophils # 0.0 Basophils # 0.1 Nucleated Red 0.0 Blood Cells # Sodium Level 138 Potassium Level 4.3 Chloride Level 105 Carbon Dioxide 31 Level Anion Gap 2 L Blood Urea 15 Nitrogen Creatinine 0.51 Est Glomerular > 60 Filtrat Rate mL/min Glucose Level 143 Calcium Level 8.9 Magnesium Level 1.2 L Total Bilirubin 1.8 H Direct Bilirubin 0.00 Indirect Bilirubin 1.8 H Aspartate Amino 86 H Transf (AST/SGOT) Alanine 40 Aminotransferase ( ALT/SGPT) Alkaline 96 Phosphatase Ammonia 48 #H Total Protein 6.8 Albumin 2.2 L Globulin 4.60 H Albumin/Globulin 0.47 Ratio Test 10/28/18 08:35 10/28/18 12:05 10/28/18 12:38 Bedside Glucose 137 185 Lab Scanned Report REFERENCE LAB Exam/Review of Systems Exam Vitals Vital Signs Date Temp Pulse Resp B/P (MAP) Pulse Ox O2 O2 Flow FiO2 Time Delivery Rate 10/28/18 Nasal 2.0 10:00 Cannula 10/28/18 98.1 80 16 99/54 (01) 88 07:33 Intake and Output 10/27/18 10/27/18 10/28/18 1515:00 23:00 07:00 IntakeIntake Total 100 ml 240 ml OutputOutput Total 1200 ml 200 ml 700 ml BalanceBalance -1100 ml 40 ml -700 ml Results Results 24hrs Laboratory Tests Test 10/27/18 16:39 10/27/18 21:13 10/28/18 01:48 10/28/18 05:03 Bedside Glucose 101 272 H 90 White Blood Count 5.3 # Red Blood Count 4.39 Hemoglobin 12.6 Hematocrit 38.4 Mean Corpuscular 87.5 Volume Mean Corpuscular 28.7 L Hemoglobin Mean Corpuscular 32.8 Hemoglobin Concent Red Cell 15.6 H Distribution Width Platelet Count 74 #L Mean Platelet 10.3 Volume Immature 1.700 H Granulocytes % Neutrophils % 56.5 Lymphocytes % 28.7 Monocytes % 11.6 H Eosinophils % 0.0 Basophils % 1.5 Nucleated Red 0.0 Blood Cells % Immature 0.090 H Granulocytes # Neutrophils # 3.0 Lymphocytes # 1.5 Monocytes # 0.6 Eosinophils # 0.0 Basophils # 0.1 Nucleated Red 0.0 Blood Cells # Sodium Level 138 Potassium Level 4.3 Chloride Level 105 Carbon Dioxide 31 Level Anion Gap 2 L Blood Urea 15 Nitrogen Creatinine 0.51 Est Glomerular > 60 Filtrat Rate mL/min Glucose Level 143 Calcium Level 8.9 Magnesium Level 1.2 L Total Bilirubin 1.8 H Direct Bilirubin 0.00 Indirect Bilirubin 1.8 H Aspartate Amino 86 H Transf (AST/SGOT) Alanine 40 Aminotransferase ( ALT/SGPT) Alkaline 96 Phosphatase Ammonia 48 #H Total Protein 6.8 Albumin 2.2 L Globulin 4.60 H Albumin/Globulin 0.47 Ratio Test 10/28/18 08:35 10/28/18 12:05 10/28/18 12:38 Bedside Glucose 137 185 Lab Scanned Report REFERENCE LAB Medications Medication Current Medications Albuterol/ Ipratropium (Duoneb) 3 ml Q2H RESP THERAPY PRN HHN SHORTNESS OF BREATH; Start 10/23/18 at 07:30 IV Flush (NS 3 ml) 3 ml PER PROTOCOL IV ; Start 10/23/18 at 09:30 Ondansetron HCl (Zofran Inj) 4 mg Q6H PRN IV NAUSEA/VOMITING; Start 10/23/18 at 09:30 Acetaminophen (Tylenol Tab) 650 mg Q8H PRN PO .PAIN 1-3 OR TEMP Last administered on 10/23/18at 17:04; Admin Dose 650 MG; Start 10/23/18 at 09:30 Diagnostic Test (Pha) (Accu-Chek) 1 ea 02 XX Last administered on 10/25/18at 01:04; Admin Dose 1 EA; Start 10/24/18 at 02:00 Insulin Aspart (Novolog Insulin Pen) NOVOLOG *MILD* ALGORITHM WITH MEALS BEDTIME SC Last administered on 10/28/18at 12:41; Admin Dose 2 UNIT; Start 10/23/18 at 12:00 Miscellaneous Information 1 ea NOTE XX ; Start 10/23/18 at 09:30 Glucose (Glutose) 15 gm Q15M PRN PO DECREASED GLUCOSE; Start 10/23/18 at 09:30 Glucose (Glutose) 22.5 gm Q15M PRN PO DECREASED GLUCOSE; Start 10/23/18 at 09:30 Dextrose (D50w Syringe) 25 ml Q15M PRN IV DECREASED GLUCOSE; Start 10/23/18 at 09:30 Dextrose (D50w Syringe) 50 ml Q15M PRN IV DECREASED GLUCOSE; Start 10/23/18 at 09:30 Glucagon (Glucagen) 1 mg Q15M PRN IM DECREASED GLUCOSE; Start 10/23/18 at 09:30 Glucose (Glutose) 15 gm Q15M PRN BUCCAL DECREASED GLUCOSE; Start 10/23/18 at 09:30 Rifaximin (Xifaxan) 550 mg BID PO Last administered on 10/28/18 08:37; Admin Dose 550 MG; Start 10/23/18 at 21:00 Insulin Glargine (Lantus) 24 units DAILY@0800 SC Last administered on 10/28/18 08:37; Admin Dose 24 UNITS; Start 10/23/18 at 11:30 Spironolactone (Aldactone) 50 mg BID DIURETICS PO Last administered on 10/28/18 05:23; Admin Dose 50 MG; Start 10/23/18 at 11:00 Tramadol HCl (Ultram) 50 mg Q6H PRN PO MODERATE PAIN LEVEL 4-6 Last administered on 10/26/18 21:36; Admin Dose 50 MG; Start 10/24/18 at 00:00 Insulin Aspart (Novolog Insulin Pen) 4 unit WITH MEALS SC Last administered on 10/28/18 12:40; Admin Dose 4 UNIT; Start 10/24/18 at 12:00 Lactulose (Enulose) 20 gm Q8 PO Last administered on 10/27/18 16:42; Admin Dose 20 GM; Start 10/24/18 at 14:00 Thiamine HCl (Vitamin B1) 100 mg DAILY PO Last administered on 10/28/18 08:37; Admin Dose 100 MG; Start 10/24/18 at 13:00; Stop 11/03/18 at 12:59 Fluoxetine HCl (Prozac) 20 mg DAILY PO Last administered on 10/28/18 08:38; Admin Dose 20 MG; Start 10/24/18 at 13:00 Zolpidem Tartrate (Ambien) 5 mg HS PRN PO INSOMNIA Last administered on 10/27/18 21:15; Admin Dose 5 MG; Start 10/24/18 at 13:00 Furosemide (Lasix) 40 mg DAILY PO Last administered on 10/28/18 08:37; Admin Dose 40 MG; Start 10/25/18 at 09:30 Famotidine (Pepcid) 20 mg DAILY PO Last administered on 10/28/18 08:38; Admin Dose 20 MG; Start 10/25/18 at 09:30 Nadolol (Corgard) 40 mg DAILY PO Last administered on 10/28/18 08:38; Admin Dose 40 MG; Start 10/26/18 at 11:20 Levofloxacin (Levaquin) 500 mg DAILY@06 PO Last administered on 10/28/18at 05:23; Admin Dose 500 MG; Start 10/27/18 at 15:30; Stop 11/01/18 at 15:29 Magnesium Sulfate 100 ml @ 25 mls/hr ONCE ONCE IVPB Last administered on 10/28/18at 10:39; Admin Dose 25 MLS/HR; Start 10/28/18 at 10:00; Stop 10/28/18 at 13:59 CAT MARTÍNEZ NP October 28, 2018 12:57
--- NOTE | 2018-10-28 14:18 | PN ---
Date/Time of Note Date/Time of Note DATE: 10/28/18 TIME: 14:02 Assessment/Plan VTE Prophylaxis Risk score (from Ns)>0 risk: 3 SCD applied (from Ns): Yes Pharmacological prophylaxis: other (scds) Lines/Catheters [facility] (from [facility] Mid Line Urinary Cath still in place: No Assessment/Plan Hospital Course Assessment/Plan Assessment: Sepsis Diarrhea -Stool studies - coliform, c-diff negative Hepatitis C- confirmed with elevated RNA Cirrhosis -Thrombocytopenia -Coagulopathy, mild EGD 10/27/2018 No esophageal varices Portal hypertensive gastropathy Gastric erosions/gastritis Splenomegaly Imaging findings suggestive of portal HTN Elevated LFTs with indirect hyperbilirubinemia Normocytic anemia DM Cholelithiasis Right pleural effusion with consolidation atelectasis although infiltrate cannot be ruled out Plan: Continue Xifaxan 550 mg p.o. twice daily/ lactulose Pt to f/u with GI as out-pt for Hep C treatment Pt started on Nadolol CM/SS consult pending Patient seen in collaboration with Dr. Steven Subjective: Pt feels weak, but over all better since admission Her main concern is housing after discharge. Encourage getting OOB. deep breathing and ambulation. Exam PHYSICAL EXAMINATION: GENERAL: Alert & oriented, obese, lethargic SKIN: No lesions HEAD: Normocephalic, atraumatic, no tenderness. EYES: Pupils equal reactive to light, no discharge. EARS/NOSE AND THROAT: Ears normal, nose normal,. NECK: Supple, no masses. CHEST: Inspection within normal limits. CARDIOVASCULAR: Heart: Regular rate and rhythm, tachycardia RESPIRATORY: Lungs clear to auscultation GASTROINTESTINAL AND LIVER: Abdomen: Soft, right upper quadrant tenderness- resolved, obese, no hernias, no masses, no organomegaly, no ascites, no gu arding, no rebound tenderness, normoactive bowel sounds. Rectal: Deferred. EXTREMITIES: BLE edema. Result Diagram: 10/28/18 0503 10/28/18 0503 Results 24hrs Laboratory Tests Test 10/27/18 16:39 10/27/18 21:13 10/28/18 01:48 10/28/18 05:03 Bedside Glucose 101 272 H 90 White Blood Count 5.3 # Red Blood Count 4.39 Hemoglobin 12.6 Hematocrit 38.4 Mean Corpuscular 87.5 Volume Mean Corpuscular 28.7 L Hemoglobin Mean Corpuscular 32.8 Hemoglobin Concent Red Cell 15.6 H Distribution Width Platelet Count 74 #L Mean Platelet 10.3 Volume Immature 1.700 H Granulocytes % Neutrophils % 56.5 Lymphocytes % 28.7 Monocytes % 11.6 H Eosinophils % 0.0 Basophils % 1.5 Nucleated Red 0.0 Blood Cells % Immature 0.090 H Granulocytes # Neutrophils # 3.0 Lymphocytes # 1.5 Monocytes # 0.6 Eosinophils # 0.0 Basophils # 0.1 Nucleated Red 0.0 Blood Cells # Sodium Level 138 Potassium Level 4.3 Chloride Level 105 Carbon Dioxide 31 Level Anion Gap 2 L Blood Urea 15 Nitrogen Creatinine 0.51 Est Glomerular > 60 Filtrat Rate mL/min Glucose Level 143 Calcium Level 8.9 Magnesium Level 1.2 L Total Bilirubin 1.8 H Direct Bilirubin 0.00 Indirect Bilirubin 1.8 H Aspartate Amino 86 H Transf (AST/SGOT) Alanine 40 Aminotransferase ( ALT/SGPT) Alkaline 96 Phosphatase Ammonia 48 #H Total Protein 6.8 Albumin 2.2 L Globulin 4.60 H Albumin/Globulin 0.47 Ratio Test 10/28/18 08:35 10/28/18 12:05 10/28/18 12:38 Bedside Glucose 137 185 Lab Scanned Report REFERENCE LAB Exam/Review of Systems Exam Vitals Vital Signs Date Temp Pulse Resp B/P (MAP) Pulse Ox O2 O2 Flow FiO2 Time Delivery Rate 10/28/18 Nasal 2.0 10:00 Cannula 10/28/18 98.1 80 16 99/54 (69) 88 07:33 Intake and Output 10/27/18 10/27/18 10/28/18 1515:00 23:00 07:00 IntakeIntake Total 100 ml 240 ml OutputOutput Total 1200 ml 200 ml 700 ml BalanceBalance -1100 ml 40 ml -700 ml Results Results 24hrs Laboratory Tests Test 10/27/18 16:39 10/27/18 21:13 10/28/18 01:48 10/28/18 05:03 Bedside Glucose 101 272 H 90 White Blood Count 5.3 # Red Blood Count 4.39 Hemoglobin 12.6 Hematocrit 38.4 Mean Corpuscular 87.5 Volume Mean Corpuscular 28.7 L Hemoglobin Mean Corpuscular 32.8 Hemoglobin Concent Red Cell 15.6 H Distribution Width Platelet Count 74 #L Mean Platelet 10.3 Volume Immature 1.700 H Granulocytes % Neutrophils % 56.5 Lymphocytes % 28.7 Monocytes % 11.6 H Eosinophils % 0.0 Basophils % 1.5 Nucleated Red 0.0 Blood Cells % Immature 0.090 H Granulocytes # Neutrophils # 3.0 Lymphocytes # 1.5 Monocytes # 0.6 Eosinophils # 0.0 Basophils # 0.1 Nucleated Red 0.0 Blood Cells # Sodium Level 138 Potassium Level 4.3 Chloride Level 105 Carbon Dioxide 31 Level Anion Gap 2 L Blood Urea 15 Nitrogen Creatinine 0.51 Est Glomerular > 60 Filtrat Rate mL/min Glucose Level 143 Calcium Level 8.9 Magnesium Level 1.2 L Total Bilirubin 1.8 H Direct Bilirubin 0.00 Indirect Bilirubin 1.8 H Aspartate Amino 86 H Transf (AST/SGOT) Alanine 40 Aminotransferase ( ALT/SGPT) Alkaline 96 Phosphatase Ammonia 48 #H Total Protein 6.8 Albumin 2.2 L Globulin 4.60 H Albumin/Globulin 0.47 Ratio Test 10/28/18 08:35 10/28/18 12:05 10/28/18 12:38 Bedside Glucose 137 185 Lab Scanned Report REFERENCE LAB Medications Medication Current Medications Albuterol/ Ipratropium (Duoneb) 3 ml Q2H RESP THERAPY PRN HHN SHORTNESS OF BREATH; Start 10/23/18 at 07:30 IV Flush (NS 3 ml) 3 ml PER PROTOCOL IV ; Start 10/23/18 at 09:30 Ondansetron HCl (Zofran Inj) 4 mg Q6H PRN IV NAUSEA/VOMITING; Start 10/23/18 at 09:30 Acetaminophen (Tylenol Tab) 650 mg Q8H PRN PO .PAIN 1-3 OR TEMP Last administered on 10/23/18at 17:04; Admin Dose 650 MG; Start 10/23/18 at 09:30 Diagnostic Test (Pha) (Accu-Chek) 1 ea 02 XX Last administered on 10/25/18at 01:04; Admin Dose 1 EA; Start 10/24/18 at 02:00 Insulin Aspart (Novolog Insulin Pen) NOVOLOG *MILD* ALGORITHM WITH MEALS BEDTIME SC Last administered on 10/28/18at 12:41; Admin Dose 2 UNIT; Start 10/23/18 at 12:00 Miscellaneous Information 1 ea NOTE XX ; Start 10/23/18 at 09:30 Glucose (Glutose) 15 gm Q15M PRN PO DECREASED GLUCOSE; Start 10/23/18 at 09:30 Glucose (Glutose) 22.5 gm Q15M PRN PO DECREASED GLUCOSE; Start 10/23/18 at 09:30 Dextrose (D50w Syringe) 25 ml Q15M PRN IV DECREASED GLUCOSE; Start 10/23/18 at 09:30 Dextrose (D50w Syringe) 50 ml Q15M PRN IV DECREASED GLUCOSE; Start 10/23/18 at 09:30 Glucagon (Glucagen) 1 mg Q15M PRN IM DECREASED GLUCOSE; Start 10/23/18 at 09:30 Glucose (Glutose) 15 gm Q15M PRN BUCCAL DECREASED GLUCOSE; Start 10/23/18 at 09:30 Rifaximin (Xifaxan) 550 mg BID PO Last administered on 10/28/18 08:37; Admin Dose 550 MG; Start 10/23/18 at 21:00 Insulin Glargine (Lantus) 24 units DAILY@0800 SC Last administered on 10/28/18 08:37; Admin Dose 24 UNITS; Start 10/23/18 at 11:30 Spironolactone (Aldactone) 50 mg BID DIURETICS PO Last administered on 10/28/18 05:23; Admin Dose 50 MG; Start 10/23/18 at 11:00 Tramadol HCl (Ultram) 50 mg Q6H PRN PO MODERATE PAIN LEVEL 4-6 Last administered on 10/26/18 21:36; Admin Dose 50 MG; Start 10/24/18 at 00:00 Insulin Aspart (Novolog Insulin Pen) 4 unit WITH MEALS SC Last administered on 10/28/18 12:40; Admin Dose 4 UNIT; Start 10/24/18 at 12:00 Lactulose (Enulose) 20 gm Q8 PO Last administered on 10/28/18 13:57; Admin Dose 20 GM; Start 10/24/18 at 14:00 Thiamine HCl (Vitamin B1) 100 mg DAILY PO Last administered on 10/28/18 08:37; Admin Dose 100 MG; Start 10/24/18 at 13:00; Stop 11/03/18 at 12:59 Fluoxetine HCl (Prozac) 20 mg DAILY PO Last administered on 10/28/18 08:38; Admin Dose 20 MG; Start 10/24/18 at 13:00 Zolpidem Tartrate (Ambien) 5 mg HS PRN PO INSOMNIA Last administered on 10/27/18 21:15; Admin Dose 5 MG; Start 10/24/18 at 13:00 Furosemide (Lasix) 40 mg DAILY PO Last administered on 10/28/18 08:37; Admin Dose 40 MG; Start 10/25/18 at 09:30 Famotidine (Pepcid) 20 mg DAILY PO Last administered on 10/28/18 08:38; Admin Dose 20 MG; Start 10/25/18 at 09:30 Nadolol (Corgard) 40 mg DAILY PO Last administered on 10/28/18 08:38; Admin Dose 40 MG; Start 10/26/18 at 11:20 Levofloxacin (Levaquin) 500 mg DAILY@06 PO Last administered on 10/28/18 05:23; Admin Dose 500 MG; Start 10/27/18 at 15:30; Stop 11/01/18 at 15:29 TEJAL BOWMAN October 28, 2018 14:16
[2018-10-28 19:40] VITALS: BP 125/62; PULSE 67; RESP 19
[2018-10-28] MEDS: ZOLPIDEM 5 MG TAB PO PRN (21:39)
[2018-10-28] MEDS: traMADol 50 MG TAB PO PRN (21:40)
[2018-10-29] MEDS: ACCU-CHEK XX SCH (02:00)
[2018-10-29 02:37] VITALS: BP 115/63; PULSE 67; RESP 18
[2018-10-29] MEDS: traMADol 50 MG TAB PO PRN ×3 (03:47→21:53)
[2018-10-29] MEDS: SPIRONOLACTONE 50 MG TAB PO SCH ×2 (05:27→17:22)
[2018-10-29] MEDS: LACTULOSE 30ML CUP PO SCH ×3 (05:27→21:17)
[2018-10-29] MEDS: LEVOFLOXACIN 500 MG TAB PO SCH (05:27)
[2018-10-29 07:40] VITALS: BP 119/62; PULSE 66; RESP 18
[2018-10-29] MEDS: INSULIN ASPART [NOVOLOG] 3 ML PEN SC SCH ×7 (08:19→21:16)
[2018-10-29] MEDS: INSULIN GLARGINE [LANTus] (100 UNITS/ML) SYG SC SCH (08:20)
[2018-10-29] MEDS: NADOLOL 40 MG TAB PO SCH (08:21)
[2018-10-29] MEDS: FUROSEMIDE 40 MG TAB PO SCH (08:22)
[2018-10-29] MEDS: THIAMINE 100 MG TAB PO SCH (08:23)
[2018-10-29] MEDS: FAMOTIDINE 20 MG TAB PO SCH (08:23)
[2018-10-29] MEDS: RIFAXIMIN 550 MG TAB PO SCH ×2 (08:23→21:17)
[2018-10-29] MEDS: FLUOXETINE 20 MG CAP PO SCH (08:23)
[2018-10-29] MEDS: ONDANSETRON 4 MG INJ IV PRN (10:20)
[2018-10-29] MEDS ORDERED: LACT20SO2 PO (12:30)
[2018-10-29] MEDS ORDERED: MAGNESIUM SULFATE 2 GM/50 ML 50 ML IVPB ONE (12:30)
[2018-10-29] MEDS ORDERED: METF-849 PO (12:30)
[2018-10-29] MEDS ORDERED: FURO40TA4 PO (12:30)
[2018-10-29] MEDS ORDERED: GLIP5TAB13 PO (12:30)
[2018-10-29] MEDS ORDERED: NADO40TA18 PO (12:30)
[2018-10-29] MEDS ORDERED: FLUO20CA22 PO (12:30)
[2018-10-29] MEDS ORDERED: SPIR50TA PO (12:30)
[2018-10-29] MEDS ORDERED: THIA100T56 PO (12:30)
--- NOTE | 2018-10-29 12:31 | PDOCDIS ---
Discharge Instructions CONDITION [id number] Patient Condition: [id number] Stable HOME CARE INSTRUCTIONS: [id number] Diet Instructions: [id number] FOR UNTREATED HEP C. CALL 'S OFFICE FOR APPOINTMENT INFORMATION Coral Steven MD Specialty Gastroenterology Comments Office Address [id number] [place] [address] Office CAT MARTÍNEZ NP October 29, 2018 12:31
--- NOTE | 2018-10-29 12:34 | PN ---
Date/Time of Note Date/Time of Note DATE: 10/29/18 TIME: 12:32 Assessment/Plan VTE Prophylaxis Risk score (from Ns)>0 risk: 4 [place] [facility] [place] Pharmacological prophylaxis: NA/contraindicated Pharm contraindication: blood coag disorder, liver dx Lines/Catheters [facility] (from [facility] Mid Line Urinary Cath still in place: No Assessment/Plan Hospital Course SUBJECTIVE:no acute episodes. OBJECTIVE: Vital signs-see below PHYSICAL EXAM: Constitutional: Morbidly obese female,not in acute distress. HEENT: Head atraumatic and normocephalic. Eyes: Extraocular muscles intact. Anicteric sclerae. Pupils equal bilaterally, reactive to light. NECK: Supple without lymph node. CHEST: Coarse breath sounds w/mild expiratory wheeze greater on right side. HEART: S1, S2. Regular rate and rhythm. ABDOMEN: Tenderness to all 4 quadrants, no rebound tenderness. Bowel sounds were present. EXTREMITIES: non-pitting edema bilateral lower extremities-improved. Chronic venous stasis changes appreciated. No cyanosis or clubbing appreciated. NEUROLOGIC: Confused. Alert and oriented x2. No focal deficit. No sensory deficit. PSYCHOSOCIAL: No signs of depression. INTEGUMENTARY: No open wounds. ASSESSMENT AND PLAN:58-year-old morbidly obese homeless female with a history of untreated hepatitis C, liver cirrhosis/ascites with history of paracentesis, th rombocytopenia, pleural effusion with history of thoracentesis,dm2, anemia,meth abuse and noncompliance here with worsening shortness of breath/ confusion, abdominal pain,incontinence, nonbloody diarrhea x2 days duration... Sepsis -Most suspect source: Intra-abdominal/respiratory -Resolved. Cultures negative. Nonbloody diarrhea/abdominal pain,likely gastroenteritis -symptoms resolved -infectious diarrhea ruled out. Acute on chronic toxic encephalopathy w/hyperammonemia. -Mentation back to normal. -cont. lactulose/ rifaximin. -cessation of substance abuse Community acquired pneumonia -Clinically improved -ON oral Levaquin w/stop date on it R pleural effusion -stable and appears to be a chronic problem and was ruled out for malignancy with previous admissions -Continue diuretics Untreated hepatitis C -GI follow-up Liver cirrhosis w/sequela of splenomegaly/thrombocytopenia/portal HTN - Secondary to hepatitis C and alcohol. - cont lasix, spironolactone,Corgard - Ammonia detoxicant DMII: - stable glycemic control - Basal/bolus Untreated hepatitis C -Outpatient GI follow-up Cholelithiasis without cholecystitis -monitor Chronic lymphedema -Improved significantly -cont.elevation of affected extremities Chronic anemia -Stable H&H. Monitor. Homelessness/Meth abuse -Patient was previously placed in a [place] [facility] where she went AMA back to the streets. She requires a SNF per PT notes. -SW f/u Morbid obesity with BMI 41.6. -Lifestyle changes advised. Noncompliance -Counselled Major depressive disorders -Appreciate psych recommendations, on medications. DVT prophylaxis: SCDs, chemical anti-correlation contraindicated with abnormal liver function/coagulopathies. PUD prophylaxis: Pepcid Dispo: Patient remains medically stable for oupt GI f/u. Unfortunately no SNF opens for her due to noncompliance/homelessness. SW to assist other placement options. DC IV ACCESS ON DC Patient was seen in collaboration with Dr. Gamez. Result Diagram: 10/28/18 0503 10/29/18 0713 Results 24hrs Laboratory Tests Test 10/28/18 12:38 10/28/18 18:00 10/28/18 18:05 10/28/18 21:42 Bedside Glucose 185 314 H 266 H 142 Test 10/29/18 02:11 10/29/18 07:13 10/29/18 08:17 10/29/18 12:03 Bedside Glucose 179 210 Sodium Level 135 Potassium Level 4.0 Chloride Level 104 Carbon Dioxide 29 Level Anion Gap 2 L Blood Urea 20 Nitrogen Creatinine 0.62 Est Glomerular > 60 Filtrat Rate mL/min Glucose Level 193 Calcium Level 8.7 Magnesium Level 1.6 L Lab Scanned Report REFERENCE LAB Test 10/29/18 12:09 Bedside Glucose 282 H Exam/Review of Systems Exam Vitals Vital Signs Date Temp Pulse Resp B/P (MAP) Pulse Ox O2 O2 Flow FiO2 Time Delivery Rate 10/29/18 97.9 66 18 119/62 98 Room Air 07:40 (81) 10/28/18 2.0 10:00 Intake and Output 10/28/18 10/28/18 10/29/18 1515:00 23:00 07:00 IntakeIntake Total 418 ml 800 ml BalanceBalance 418 ml 800 ml Results Results 24hrs Laboratory Tests Test 10/28/18 12:38 10/28/18 18:00 10/28/18 18:05 10/28/18 21:42 Bedside Glucose 185 314 H 266 H 142 Test 10/29/18 02:11 10/29/18 07:13 10/29/18 08:17 10/29/18 12:03 Bedside Glucose 179 210 Sodium Level 135 Potassium Level 4.0 Chloride Level 104 Carbon Dioxide 29 Level Anion Gap 2 L Blood Urea 20 Nitrogen Creatinine 0.62 Est Glomerular > 60 Filtrat Rate mL/min Glucose Level 193 Calcium Level 8.7 Magnesium Level 1.6 L Lab Scanned Report REFERENCE LAB Test 10/29/18 12:09 Bedside Glucose 282 H Medications Medication Current Medications Albuterol/ Ipratropium (Duoneb) 3 ml Q2H RESP THERAPY PRN HHN SHORTNESS OF BREATH; Start 10/23/18 at 07:30 IV Flush (NS 3 ml) 3 ml PER PROTOCOL IV ; Start 10/23/18 at 09:30 Ondansetron HCl (Zofran Inj) 4 mg Q6H PRN IV NAUSEA/VOMITING Last administered on 10/29/18at 10:20; Admin Dose 4 MG; Start 10/23/18 at 09:30 Acetaminophen (Tylenol Tab) 650 mg Q8H PRN PO .PAIN 1-3 OR TEMP Last administered on 10/23/18at 17:04; Admin Dose 650 MG; Start 10/23/18 at 09:30 Diagnostic Test (Pha) (Accu-Chek) 1 ea 02 XX Last administered on 10/25/18at 01:04; Admin Dose 1 EA; Start 10/24/18 at 02:00 Insulin Aspart (Novolog Insulin Pen) NOVOLOG *MILD* ALGORITHM WITH MEALS BEDTIME SC Last administered on 10/29/18at 12:13; Admin Dose 4 UNIT; Start 10/23/18 at 12:00 Miscellaneous Information 1 ea NOTE XX ; Start 10/23/18 at 09:30 Glucose (Glutose) 15 gm Q15M PRN PO DECREASED GLUCOSE; Start 10/23/18 at 09:30 Glucose (Glutose) 22.5 gm Q15M PRN PO DECREASED GLUCOSE; Start 10/23/18 at 09:30 Dextrose (D50w Syringe) 25 ml Q15M PRN IV DECREASED GLUCOSE; Start 10/23/18 at 09:30 Dextrose (D50w Syringe) 50 ml Q15M PRN IV DECREASED GLUCOSE; Start 10/23/18 at 09:30 Glucagon (Glucagen) 1 mg Q15M PRN IM DECREASED GLUCOSE; Start 10/23/18 at 09:30 Glucose (Glutose) 15 gm Q15M PRN BUCCAL DECREASED GLUCOSE; Start 10/23/18 at 09:30 Rifaximin (Xifaxan) 550 mg BID PO Last administered on 10/29/18 08:23; Admin Dose 550 MG; Start 10/23/18 at 21:00 Insulin Glargine (Lantus) 24 units DAILY@0800 SC Last administered on 10/29/18 08:20; Admin Dose 24 UNITS; Start 10/23/18 at 11:30 Spironolactone (Aldactone) 50 mg BID DIURETICS PO Last administered on 10/29/18 05:27; Admin Dose 50 MG; Start 10/23/18 at 11:00 Tramadol HCl (Ultram) 50 mg Q6H PRN PO MODERATE PAIN LEVEL 4-6 Last administered on 10/29/18 03:47; Admin Dose 50 MG; Start 10/24/18 at 00:00 Insulin Aspart (Novolog Insulin Pen) 4 unit WITH MEALS SC Last administered on 10/29/18 12:14; Admin Dose 4 UNIT; Start 10/24/18 at 12:00 Lactulose (Enulose) 20 gm Q8 PO Last administered on 10/28/18 13:57; Admin Dose 20 GM; Start 10/24/18 at 14:00 Thiamine HCl (Vitamin B1) 100 mg DAILY PO Last administered on 10/29/18 08:23; Admin Dose 100 MG; Start 10/24/18 at 13:00; Stop 11/03/18 at 12:59 Fluoxetine HCl (Prozac) 20 mg DAILY PO Last administered on 10/29/18 08:23; Admin Dose 20 MG; Start 10/24/18 at 13:00 Zolpidem Tartrate (Ambien) 5 mg HS PRN PO INSOMNIA Last administered on 10/28/18 21:39; Admin Dose 5 MG; Start 10/24/18 at 13:00 Furosemide (Lasix) 40 mg DAILY PO Last administered on 10/29/18 08:22; Admin Dose 40 MG; Start 10/25/18 at 09:30 Famotidine (Pepcid) 20 mg DAILY PO Last administered on 10/29/18at 08:23; Admin Dose 20 MG; Start 10/25/18 at 09:30 Nadolol (Corgard) 40 mg DAILY PO Last administered on 10/29/18at 08:21; Admin Dose 40 MG; Start 10/26/18 at 11:20 Levofloxacin (Levaquin) 500 mg DAILY@06 PO Last administered on 10/29/18at 05:27; Admin Dose 500 MG; Start 10/27/18 at 15:30; Stop 11/01/18 at 15:29 Magnesium Sulfate 50 ml @ 25 mls/hr ONCE ONCE IVPB ; Start 10/29/18 at 12:30; Stop 10/29/18 at 14:29 CAT MARTÍNEZ NP October 29, 2018 12:34
[2018-10-29 14:00] VITALS: BP 124/69; PULSE 62; RESP 18
[2018-10-29 14:07] VITALS: BP 96/60; PULSE 57; RESP 18
[2018-10-29 17:46] VITALS: BP 109/66; PULSE 63; RESP 18
[2018-10-29 19:53] VITALS: BP 114/69; PULSE 62; RESP 18
[2018-10-29] MEDS: ZOLPIDEM 5 MG TAB PO PRN (21:51)
[2018-10-30 02:00] VITALS: BP 127/62; PULSE 64; RESP 18
[2018-10-30] MEDS: ACCU-CHEK XX SCH (02:46)
[2018-10-30] MEDS: LACTULOSE 30ML CUP PO SCH ×3 (06:00→22:00)
[2018-10-30 08:00] VITALS: BP 92/58; PULSE 70; RESP 18
[2018-10-30] MEDS: INSULIN ASPART [NOVOLOG] 3 ML PEN SC SCH ×7 (08:00→21:00)
[2018-10-30] MEDS: RIFAXIMIN 550 MG TAB PO SCH ×2 (08:40→20:56)
[2018-10-30] MEDS: FLUOXETINE 20 MG CAP PO SCH (08:40)
[2018-10-30] MEDS: THIAMINE 100 MG TAB PO SCH (08:40)
[2018-10-30] MEDS: FAMOTIDINE 20 MG TAB PO SCH (08:40)
[2018-10-30] MEDS: NADOLOL 40 MG TAB PO SCH (08:40)
[2018-10-30] MEDS: LEVOFLOXACIN 500 MG TAB PO SCH (08:41)
[2018-10-30] MEDS: SPIRONOLACTONE 50 MG TAB PO SCH ×2 (08:41→17:12)
[2018-10-30] MEDS: FUROSEMIDE 40 MG TAB PO SCH (08:41)
[2018-10-30] MEDS: INSULIN GLARGINE [LANTus] (100 UNITS/ML) SYG SC SCH (08:53)
--- NOTE | 2018-10-30 11:16 | PN ---
Date/Time of Note Date/Time of Note DATE: 10/30/18 TIME: 11:14 Assessment/Plan VTE Prophylaxis Risk score (from Ns)>0 risk: 4 SCD applied (from Ns): Yes Pharmacological prophylaxis: other (scds) Lines/Catheters [facility] Mid Line Urinary Cath still in place: No Assessment/Plan Hospital Course Assessment/Plan Assessment: Sepsis Diarrhea -Stool studies - coliform, c-diff negative Hepatitis C- confirmed with elevated RNA Cirrhosis -Thrombocytopenia -Coagulopathy, mild EGD 10/27/2018 No esophageal varices Portal hypertensive gastropathy Gastric erosions/gastritis Splenomegaly Imaging findings suggestive of portal HTN Elevated LFTs with indirect hyperbilirubinemia Normocytic anemia DM Cholelithiasis Right pleural effusion with consolidation atelectasis although infiltrate cannot be ruled out Plan: Continue Xifaxan 550 mg p.o. twice daily/ lactulose- titrate to 3-4 BM in 24 hour period Pt to f/u with GI as out-pt for Hep C treatment Nadolol CM/SS consulted Pt stable from GI point of view for d/c- Gi will sign off but will be available upon reconsult as needed Patient seen in collaboration with Dr. Steven Subjective: Pt stable for d/c from GI Point of view, however placement pending as pt will SNF per PT notes Exam PHYSICAL EXAMINATION: GENERAL: Alert & oriented, obese, lethargic SKIN: No lesions HEAD: Normocephalic, atraumatic, no tenderness. EYES: Pupils equal reactive to light, no discharge. EARS/NOSE AND THROAT: Ears normal, nose normal,. NECK: Supple, no masses. CHEST: Inspection within normal limits. CARDIOVASCULAR: Heart: Regular rate and rhythm, tachycardia RESPIRATORY: Lungs clear to auscultation GASTROINTESTINAL AND LIVER: Abdomen: Soft, right upper quadrant tenderness- resolved, obese, no hernias, no masses, no organomegaly, no ascites, no guarding, no rebound tenderness, normoactive bowel sounds. Rectal: Deferred. EXTREMITIES: BLE edema. Result Diagram: 10/28/18 0503 10/29/18 0713 Results 24hrs Laboratory Tests Test 10/29/18 12:03 10/29/18 12:09 10/29/18 17:07 10/29/18 21:14 Lab Scanned Report REFERENCE LAB Bedside Glucose 282 H 274 H 219 Test 10/30/18 02:44 10/30/18 08:37 Bedside Glucose 245 H 134 Exam/Review of Systems Exam Vitals Vital Signs Date Temp Pulse Resp B/P (MAP) Pulse Ox O2 O2 Flow FiO2 Time Delivery Rate 10/30/18 98.0 70 18 92/58 (69) 97 08:00 10/30/18 2.0 04:23 10/29/18 Room Air 17:46 Intake and Output 10/29/18 10/29/18 10/30/18 1515:00 23:00 07:00 IntakeIntake Total 550 ml BalanceBalance 550 ml Results Results 24hrs Laboratory Tests Test 10/29/18 12:03 10/29/18 12:09 10/29/18 17:07 10/29/18 21:14 Lab Scanned Report REFERENCE LAB Bedside Glucose 282 H 274 H 219 Test 10/30/18 02:44 10/30/18 08:37 Bedside Glucose 245 H 134 Medications Medication Current Medications Albuterol/ Ipratropium (Duoneb) 3 ml Q2H RESP THERAPY PRN HHN SHORTNESS OF BREATH; Start 10/23/18 at 07:30 IV Flush (NS 3 ml) 3 ml PER PROTOCOL IV ; Start 10/23/18 at 09:30 Ondansetron HCl (Zofran Inj) 4 mg Q6H PRN IV NAUSEA/VOMITING Last administered on 10/29/18at 10:20; Admin Dose 4 MG; Start 10/23/18 at 09:30 Acetaminophen (Tylenol Tab) 650 mg Q8H PRN PO .PAIN 1-3 OR TEMP Last administered on 10/23/18at 17:04; Admin Dose 650 MG; Start 10/23/18 at 09:30 Diagnostic Test (Pha) (Accu-Chek) 1 ea 02 XX Last administered on 10/30/18at 02:46; Admin Dose 1 EA; Start 10/24/18 at 02:00 Insulin Aspart (Novolog Insulin Pen) NOVOLOG *MILD* ALGORITHM WITH MEALS BEDTIME SC Last administered on 10/29/18at 21:16; Admin Dose 1 UNIT; Start 10/23/18 at 12:00 Miscellaneous Information 1 ea NOTE XX ; Start 10/23/18 at 09:30 Glucose (Glutose) 15 gm Q15M PRN PO DECREASED GLUCOSE; Start 10/23/18 at 09:30 Glucose (Glutose) 22.5 gm Q15M PRN PO DECREASED GLUCOSE; Start 10/23/18 at 09:30 Dextrose (D50w Syringe) 25 ml Q15M PRN IV DECREASED GLUCOSE; Start 10/23/18 at 09:30 Dextrose (D50w Syringe) 50 ml Q15M PRN IV DECREASED GLUCOSE; Start 10/23/18 at 09:30 Glucagon (Glucagen) 1 mg Q15M PRN IM DECREASED GLUCOSE; Start 10/23/18 at 09:30 Glucose (Glutose) 15 gm Q15M PRN BUCCAL DECREASED GLUCOSE; Start 10/23/18 at 09:30 Rifaximin (Xifaxan) 550 mg BID PO Last administered on 10/30/18 08:40; Admin Dose 550 MG; Start 10/23/18 at 21:00 Insulin Glargine (Lantus) 24 units DAILY@0800 SC Last administered on 10/30/18 08:53; Admin Dose 24 UNITS; Start 10/23/18 at 11:30 Spironolactone (Aldactone) 50 mg BID DIURETICS PO Last administered on 10/30/18 08:41; Admin Dose 50 MG; Start 10/23/18 at 11:00 Tramadol HCl (Ultram) 50 mg Q6H PRN PO MODERATE PAIN LEVEL 4-6 Last administered on 10/29/18 21:53; Admin Dose 50 MG; Start 10/24/18 at 00:00 Insulin Aspart (Novolog Insulin Pen) 4 unit WITH MEALS SC Last administered on 10/30/18 08:52; Admin Dose 4 UNIT; Start 10/24/18 at 12:00 Lactulose (Enulose) 20 gm Q8 PO Last administered on 10/29/18 21:17; Admin Dose 20 GM; Start 10/24/18 at 14:00 Thiamine HCl (Vitamin B1) 100 mg DAILY PO Last administered on 10/30/18 08:40; Admin Dose 100 MG; Start 10/24/18 at 13:00; Stop 11/03/18 at 12:59 Fluoxetine HCl (Prozac) 20 mg DAILY PO Last administered on 10/30/18 08:40; Admin Dose 20 MG; Start 10/24/18 at 13:00 Zolpidem Tartrate (Ambien) 5 mg HS PRN PO INSOMNIA Last administered on 10/29/18 21:51; Admin Dose 5 MG; Start 10/24/18 at 13:00 Furosemide (Lasix) 40 mg DAILY PO Last administered on 10/30/18 08:41; Admin Dose 40 MG; Start 10/25/18 at 09:30 Famotidine (Pepcid) 20 mg DAILY PO Last administered on 10/30/18 08:40; Admin Dose 20 MG; Start 10/25/18 at 09:30 Nadolol (Corgard) 40 mg DAILY PO Last administered on 10/30/18 08:40; Admin Dose 40 MG; Start 10/26/18 at 11:20 Levofloxacin (Levaquin) 500 mg DAILY@06 PO Last administered on 10/30/18 08:41; Admin Dose 500 MG; Start 10/27/18 at 15:30; Stop 11/01/18 at 15:29 TEJAL BOWMAN October 30, 2018 11:16
--- NOTE | 2018-10-30 12:08 | PN ---
Date/Time of Note Date/Time of Note DATE: 10/30/18 TIME: 11:59 Assessment/Plan VTE Prophylaxis Risk score (from Ns)>0 risk: 4 SCD applied (from Ns): Yes Pharmacological prophylaxis: NA/contraindicated Pharm contraindication: liver dx Lines/Catheters [facility] Mid Line Urinary Cath still in place: No Assessment/Plan Hospital Course SUBJECTIVE:no acute episodes. OBJECTIVE: Vital signs-see below PHYSICAL EXAM: Constitutional: Morbidly obese female,not in acute distress. HEENT: Head atraumatic and normocephalic. Eyes: Extraocular muscles intact. Anicteric sclerae. Pupils equal bilaterally, reactive to light. NECK: Supple without lymph node. CHEST: Coarse breath sounds w/mild expiratory wheeze greater on right side. HEART: S1, S2. Regular rate and rhythm. ABDOMEN: Tenderness to all 4 quadrants, no rebound tenderness. Bowel sounds were present. EXTREMITIES: non-pitting edema bilateral lower extremities-improved. Chronic venous stasis changes appreciated. No cyanosis or clubbing appreciated. NEUROLOGIC: Alert and oriented x3. No focal deficit. No sensory deficit. PSYCHOSOCIAL: No signs of depression. INTEGUMENTARY: No open wounds. ASSESSMENT AND PLAN:58-year-old morbidly obese homeless female with a history of untreated hepatitis C, liver cirrhosis/ascites with history of paracentesis, thrombocytopenia, pleural effusion with history of thoracentesis,dm2, anemia,meth abuse and noncompliance here with worsening shortness of breath/ confusion, abdominal pain,incontinence, nonbloody diarrhea x2 days duration... Sepsis -Most suspect source: Intra-abdominal/respiratory -Resolved. Cultures negative. Nonbloody diarrhea/abdominal pain,likely gastroenteritis -symptoms resolved -infectious diarrhea ruled out. Acute on chronic toxic encephalopathy w/hyperammonemia. -Mentation back to normal. -cont. lactulose/ rifaximin. -cessation of substance abuse Community acquired pneumonia -Clinically stable -treated w/abx R pleural effusion -stable and appears to be a chronic problem and was ruled out for malignancy with previous admissions -Continue diuretics Untreated hepatitis C -GI follow-up Liver cirrhosis w/sequela of splenomegaly/thrombocytopenia/portal HTN - Secondary to hepatitis C and alcohol. - cont lasix, spironolactone,Corgard - Ammonia detoxicant DMII: - stable glycemic control - Basal/bolus Untreated hepatitis C -Outpatient GI follow-up Cholelithiasis without cholecystitis -monitor Chronic lymphedema -Improved significantly -cont.elevation of affected extremities Chronic anemia -Stable H&H. Monitor. Homelessness/Meth abuse -Patient was previously placed in a fdc where she went AMA back to the streets. She requires a SNF per PT notes. -SW f/u Morbid obesity with BMI 41.6. -Lifestyle changes advised. Noncompliance -Counselled Major depressive disorders -Appreciate psych recommendations, on medications. DVT prophylaxis: SCDs, chemical anti-correlation contraindicated with abnormal liver function/coagulopathies. PUD prophylaxis: Pepcid Dispo: Patient remains medically stable for oupt GI f/u. PT follow up today. SW to assist w/homelessness placing. DC IV ACCESS ON DC Patient was seen in collaboration with Dr. Gamez. Result Diagram: 10/28/18 0503 10/29/18 0713 Results 24hrs Laboratory Tests Test 10/29/18 12:03 10/29/18 12:09 10/29/18 17:07 10/29/18 21:14 Lab Scanned Report REFERENCE LAB Bedside Glucose 282 H 274 H 219 Test 10/30/18 02:44 10/30/18 08:37 Bedside Glucose 245 H 134 Exam/Review of Systems Exam Vitals Vital Signs Date Temp Pulse Resp B/P (MAP) Pulse Ox O2 O2 Flow FiO2 Time Delivery Rate 10/30/18 98.0 70 18 92/58 (69) 97 08:00 10/30/18 2.0 04:23 10/29/18 Room Air 17:46 Intake and Output 10/29/18 10/29/18 10/30/18 1515:00 23:00 07:00 IntakeIntake Total 550 ml BalanceBalance 550 ml Results Results 24hrs Laboratory Tests Test 10/29/18 12:03 10/29/18 12:09 10/29/18 17:07 10/29/18 21:14 Lab Scanned Report REFERENCE LAB Bedside Glucose 282 H 274 H 219 Test 10/30/18 02:44 10/30/18 08:37 Bedside Glucose 245 H 134 Medications Medication Current Medications Albuterol/ Ipratropium (Duoneb) 3 ml Q2H RESP THERAPY PRN HHN SHORTNESS OF BREATH; Start 10/23/18 at 07:30 IV Flush (NS 3 ml) 3 ml PER PROTOCOL IV ; Start 10/23/18 at 09:30 Ondansetron HCl (Zofran Inj) 4 mg Q6H PRN IV NAUSEA/VOMITING Last administered on 10/29/18at 10:20; Admin Dose 4 MG; Start 10/23/18 at 09:30 Acetaminophen (Tylenol Tab) 650 mg Q8H PRN PO .PAIN 1-3 OR TEMP Last administered on 10/23/18at 17:04; Admin Dose 650 MG; Start 10/23/18 at 09:30 Diagnostic Test (Pha) (Accu-Chek) 1 ea 02 XX Last administered on 10/30/18at 02:46; Admin Dose 1 EA; Start 10/24/18 at 02:00 Insulin Aspart (Novolog Insulin Pen) NOVOLOG *MILD* ALGORITHM WITH MEALS BEDTIME SC Last administered on 10/29/18at 21:16; Admin Dose 1 UNIT; Start 10/23/18 at 12:00 Miscellaneous Information 1 ea NOTE XX ; Start 10/23/18 at 09:30 Glucose (Glutose) 15 gm Q15M PRN PO DECREASED GLUCOSE; Start 10/23/18 at 09:30 Glucose (Glutose) 22.5 gm Q15M PRN PO DECREASED GLUCOSE; Start 10/23/18 at 09:30 Dextrose (D50w Syringe) 25 ml Q15M PRN IV DECREASED GLUCOSE; Start 10/23/18 at 09:30 Dextrose (D50w Syringe) 50 ml Q15M PRN IV DECREASED GLUCOSE; Start 10/23/18 at 09:30 Glucagon (Glucagen) 1 mg Q15M PRN IM DECREASED GLUCOSE; Start 10/23/18 at 09:30 Glucose (Glutose) 15 gm Q15M PRN BUCCAL DECREASED GLUCOSE; Start 10/23/18 at 09:30 Rifaximin (Xifaxan) 550 mg BID PO Last administered on 10/30/18at 08:40; Admin Dose 550 MG; Start 10/23/18 at 21:00 Insulin Glargine (Lantus) 24 units DAILY@0800 SC Last administered on 10/30/18at 08:53; Admin Dose 24 UNITS; Start 10/23/18 at 11:30 Spironolactone (Aldactone) 50 mg BID DIURETICS PO Last administered on 10/30/18 08:41; Admin Dose 50 MG; Start 10/23/18 at 11:00 Tramadol HCl (Ultram) 50 mg Q6H PRN PO MODERATE PAIN LEVEL 4-6 Last administered on 10/29/18 21:53; Admin Dose 50 MG; Start 10/24/18 at 00:00 Insulin Aspart (Novolog Insulin Pen) 4 unit WITH MEALS SC Last administered on 10/30/18 08:52; Admin Dose 4 UNIT; Start 10/24/18 at 12:00 Lactulose (Enulose) 20 gm Q8 PO Last administered on 10/29/18 21:17; Admin Dos e 20 GM; Start 10/24/18 at 14:00 Thiamine HCl (Vitamin B1) 100 mg DAILY PO Last administered on 10/30/18 08:40; Admin Dose 100 MG; Start 10/24/18 at 13:00; Stop 11/03/18 at 12:59 Fluoxetine HCl (Prozac) 20 mg DAILY PO Last administered on 10/30/18 08:40; Admin Dose 20 MG; Start 10/24/18 at 13:00 Zolpidem Tartrate (Ambien) 5 mg HS PRN PO INSOMNIA Last administered on 10/29/18 21:51; Admin Dose 5 MG; Start 10/24/18 at 13:00 Furosemide (Lasix) 40 mg DAILY PO Last administered on 10/30/18 08:41; Admin Dose 40 MG; Start 10/25/18 at 09:30 Famotidine (Pepcid) 20 mg DAILY PO Last administered on 10/30/18 08:40; Admin Dose 20 MG; Start 10/25/18 at 09:30 Nadolol (Corgard) 40 mg DAILY PO Last administered on 10/30/18 08:40; Admin Dose 40 MG; Start 10/26/18 at 11:20 Levofloxacin (Levaquin) 500 mg DAILY@06 PO Last administered on 10/30/18 08:41; Admin Dose 500 MG; Start 10/27/18 at 15:30; Stop 11/01/18 at 15:29 CAT MARTÍNEZ NP October 30, 2018 12:08
[2018-10-30 14:00] VITALS: BP 136/70; PULSE 64; RESP 18
[2018-10-30] MEDS: traMADol 50 MG TAB PO PRN ×2 (16:42→23:29)
[2018-10-30 19:44] VITALS: BP 110/63; PULSE 76; RESP 19
[2018-10-31] MEDS: ZOLPIDEM 5 MG TAB PO PRN (00:05)
[2018-10-31 02:00] VITALS: BP 123/69; PULSE 73; RESP 19
[2018-10-31] MEDS: ACCU-CHEK XX SCH (02:00)
[2018-10-31] MEDS: LEVOFLOXACIN 500 MG TAB PO SCH (05:18)
[2018-10-31] MEDS: LACTULOSE 30ML CUP PO SCH ×3 (05:18→22:00)
[2018-10-31] MEDS: SPIRONOLACTONE 50 MG TAB PO SCH ×2 (05:18→17:32)
[2018-10-31 07:36] VITALS: BP 101/63; PULSE 66; RESP 18
[2018-10-31] MEDS: INSULIN ASPART [NOVOLOG] 3 ML PEN SC SCH ×6 (08:16→22:25)
[2018-10-31] MEDS: INSULIN GLARGINE [LANTus] (100 UNITS/ML) SYG SC SCH (08:17)
[2018-10-31] MEDS: RIFAXIMIN 550 MG TAB PO SCH ×2 (08:17→22:25)
[2018-10-31] MEDS: NADOLOL 40 MG TAB PO SCH (08:18)
[2018-10-31] MEDS: FLUOXETINE 20 MG CAP PO SCH (08:21)
[2018-10-31] MEDS: FUROSEMIDE 40 MG TAB PO SCH (08:21)
[2018-10-31] MEDS: FAMOTIDINE 20 MG TAB PO SCH (08:21)
[2018-10-31] MEDS: THIAMINE 100 MG TAB PO SCH (08:21)
[2018-10-31] MEDS ORDERED: ACCU-CHEK XX ONE (13:00)
[2018-10-31] MEDS ORDERED: INSULIN ASPART [NOVOLOG] 3 ML PEN SC ONE (13:00)
[2018-10-31] MEDS: traMADol 50 MG TAB PO PRN ×2 (13:12→22:25)
--- NOTE | 2018-10-31 14:06 | PN ---
Date/Time of Note Date/Time of Note DATE: 10/31/18 TIME: 14:05 Assessment/Plan VTE Prophylaxis Risk score (from Ns)>0 risk: 3 SCD applied (from [facility] [place] No SCD contraindicated: other Pharmacological prophylaxis: NA/contraindicated Pharm contraindication: blood coag disorder, liver dx Lines/Catheters IV Catheter Type (from [facility]): Mid Line Urinary Cath still in place: No Assessment/Plan Hospital Course SUBJECTIVE:no acute episodes. OBJECTIVE: Vital signs-see below PHYSICAL EXAM: Constitutional: Morbidly obese female,not in acute distress. HEENT: Head atraumatic and normocephalic. Eyes: Extraocular muscles intact. Anicteric sclerae. Pupils equal bilaterally, reactive to light. NECK: Supple without lymph node. CHEST: Coarse breath sounds w/mild expiratory wheeze greater on right side. HEART: S1, S2. Regular rate and rhythm. ABDOMEN: Tenderness to all 4 quadrants, no rebound tenderness. Bowel sounds were present. EXTREMITIES: non-pitting edema bilateral lower extremities-improved. Chronic venous stasis changes appreciated. No cyanosis or clubbing appreciated. NEUROLOGIC: Alert and oriented x3. No focal deficit. No sensory deficit. PSYCHOSOCIAL: No signs of depression. INTEGUMENTARY: No open wounds. ASSESSMENT AND PLAN:58-year-old morbidly obese homeless female with a history of untreated hepatitis C, liver cirrhosis/ascites with history of paracentesis, thrombocytopenia, pleural effusion with history of thoracentesis,dm2, anemia,meth abuse and noncompliance here with worsening shortness of breath/ confusion, abdominal pain,incontinence, nonbloody diarrhea x2 days duration... Sepsis -Most suspect source: Intra-abdominal/respiratory -Resolved. Cultures negative. Nonbloody diarrhea/abdominal pain,likely gastroenteritis -symptoms resolved -infectious diarrhea ruled out. Acute on chronic toxic encephalopathy w/hyperammonemia. -Mentation back to normal. -cont. lactulose/ rifaximin. -cessation of substance abuse Community acquired pneumonia -Clinically stable -treated w/abx R pleural effusion -stable and appears to be a chronic problem and was ruled out for malignancy with previous admissions -Continue diuretics Untreated hepatitis C -GI follow-up Liver cirrhosis w/sequela of splenomegaly/thrombocytopenia/portal HTN - Secondary to hepatitis C and alcohol. - cont lasix, spironolactone,Corgard - Ammonia detoxicant DMII: - W/hyperglycemia - increase lantus to 30 - increase premeal to 10 - accuchecks/iss - diet Untreated hepatitis C -Outpatient GI follow-up Cholelithiasis without cholecystitis -monitor Chronic lymphedema -Improved significantly -cont.elevation of affected extremities Chronic anemia -Stable H&H. Monitor. Homelessness/Meth abuse -Patient was previously placed in a skilled nursing where she went AMA back to the streets. She requires a SNF per PT notes. -SW f/u Morbid obesity with BMI 41.6. -Lifestyle changes advised. Noncompliance -Counselled Major depressive disorders -Appreciate psych recommendations, on medications. DVT prophylaxis: SCDs, chemical anti-correlation contraindicated with abnormal liver function/coagulopathies. PUD prophylaxis: Pepcid Dispo: Patient remains medically stable for oupt GI f/u. PT follow up today. SW to assist w/homelessness placing.PT reeval today. DC IV ACCESS ON DC Patient was seen in collaboration with Dr. Gamez. Result Diagram: 10/28/18 0503 10/29/18 0713 Results 24hrs Laboratory Tests Test 10/30/18 17:06 10/30/18 20:57 10/31/18 08:10 10/31/18 12:25 Bedside Glucose 252 H 141 144 389 H Exam/Review of Systems Exam Vitals Vital Signs Date Temp Pulse Resp B/P (MAP) Pulse Ox O2 O2 Flow FiO2 Time Delivery Rate 10/31/18 98.0 66 18 101/63 91 Room Air 07:36 (76) 10/31/18 2.0 05:29 Intake and Output 10/30/18 10/30/18 10/31/18 1515:00 23:00 07:00 IntakeIntake Total 360 ml 440 ml BalanceBalance 360 ml 440 ml Results Results 24hrs Laboratory Tests Test 10/30/18 17:06 10/30/18 20:57 10/31/18 08:10 10/31/18 12:25 Bedside Glucose 252 H 141 144 389 H Medications Medication Current Medications Albuterol/ Ipratropium (Duoneb) 3 ml Q2H RESP THERAPY PRN HHN SHORTNESS OF BREATH; Start 10/23/18 at 07:30 IV Flush (NS 3 ml) 3 ml PER PROTOCOL IV ; Start 10/23/18 at 09:30 Ondansetron HCl (Zofran Inj) 4 mg Q6H PRN IV NAUSEA/VOMITING Last administered on 10/29/18at 10:20; Admin Dose 4 MG; Start 10/23/18 at 09:30 Acetaminophen (Tylenol Tab) 650 mg Q8H PRN PO .PAIN 1-3 OR TEMP Last administered on 10/23/18at 17:04; Admin Dose 650 MG; Start 10/23/18 at 09:30 Diagnostic Test (Pha) (Accu-Chek) 1 ea 02 XX Last administered on 10/30/18at 02:46; Admin Dose 1 EA; Start 10/24/18 at 02:00 Insulin Aspart (Novolog Insulin Pen) NOVOLOG *MILD* ALGORITHM WITH MEALS BEDTIME SC Last administered on 10/31/18at 12:34; Admin Dose 7 UNIT; Start 10/23/18 at 12:00 Miscellaneous Information 1 ea NOTE XX ; Start 10/23/18 at 09:30 Glucose (Glutose) 15 gm Q15M PRN PO DECREASED GLUCOSE; Start 10/23/18 at 09:30 Glucose (Glutose) 22.5 gm Q15M PRN PO DECREASED GLUCOSE; Start 10/23/18 at 09:30 Dextrose (D50w Syringe) 25 ml Q15M PRN IV DECREASED GLUCOSE; Start 10/23/18 at 09:30 Dextrose (D50w Syringe) 50 ml Q15M PRN IV DECREASED GLUCOSE; Start 10/23/18 at 09:30 Glucagon (Glucagen) 1 mg Q15M PRN IM DECREASED GLUCOSE; Start 10/23/18 at 09:30 Glucose (Glutose) 15 gm Q15M PRN BUCCAL DECREASED GLUCOSE; Start 10/23/18 at 09:30 Rifaximin (Xifaxan) 550 mg BID PO Last administered on 10/31/18at 08:17; Admin Dose 550 MG; Start 10/23/18 at 21:00 Insulin Glargine (Lantus) 24 units DAILY@0800 SC Last administered on 10/31/18at 08:17; Admin Dose 24 UNITS; Start 10/23/18 at 11:30 Spironolactone (Aldactone) 50 mg BID DIURETICS PO Last administered on 10/31/18at 05:18; Admin Dose 50 MG; Start 10/23/18 at 11:00 Tramadol HCl (Ultram) 50 mg Q6H PRN PO MODERATE PAIN LEVEL 4-6 Last administered on 10/31/18 13:12; Admin Dose 50 MG; Start 10/24/18 at 00:00 Lactulose (Enulose) 20 gm Q8 PO Last administered on 10/31/18 13:12; Admin Dose 20 GM; Start 10/24/18 at 14:00 Thiamine HCl (Vitamin B1) 100 mg DAILY PO Last administered on 10/31/18 08:21; Admin Dose 100 MG; Start 10/24/18 at 13:00; Stop 11/03/18 at 12:59 Fluoxetine HCl (Prozac) 20 mg DAILY PO Last administered on 10/31/18 08:21; Admin Dose 20 MG; Start 10/24/18 at 13:00 Zolpidem Tartrate (Ambien) 5 mg HS PRN PO INSOMNIA Last administered on 10/31/18 00:05; Admin Dose 5 MG; Start 10/24/18 at 13:00 Furosemide (Lasix) 40 mg DAILY PO Last administered on 10/31/18 08:21; Admin Dose 40 MG; Start 10/25/18 at 09:30 Famotidine (Pepcid) 20 mg DAILY PO Last administered on 10/31/18 08:21; Admin Dose 20 MG; Start 10/25/18 at 09:30 Nadolol (Corgard) 40 mg DAILY PO Last administered on 10/31/18 08:18; Admin Dose 40 MG; Start 10/26/18 at 11:20 Levofloxacin (Levaquin) 500 mg DAILY@06 PO Last administered on 10/31/18 05:18; Admin Dose 500 MG; Start 10/27/18 at 15:30; Stop 11/01/18 at 15:29 Insulin Aspart (Novolog Insulin Pen) 7 unit WITH MEALS SC Last administered on 10/31/18 12:33; Admin Dose 7 UNIT; Start 10/30/18 at 18:00 CAT MARTÍNEZ NP October 31, 2018 14:06
[2018-10-31 14:13] VITALS: BP 99/53; PULSE 59; RESP 18
[2018-10-31] MEDS ORDERED: INSULIN GLARGINE [LANTus] (100 UNITS/ML) SYG SC ONE (15:00)
[2018-10-31 19:51] VITALS: BP 99/54; PULSE 64; RESP 18
[2018-10-31] MEDS: ONDANSETRON 4 MG INJ IV PRN (22:25)
[2018-11-01 01:23] VITALS: BP 132/71; PULSE 67; RESP 18
[2018-11-01] MEDS: ACCU-CHEK XX SCH (01:38)
[2018-11-01] MEDS ORDERED: morphine 2 MG INJ IV ONE (01:39)
[2018-11-01] MEDS ORDERED: ONDANSETRON 4 MG INJ IV PRN (02:00)
[2018-11-01] MEDS: LEVOFLOXACIN 500 MG TAB PO SCH (05:15)
[2018-11-01] MEDS: SPIRONOLACTONE 50 MG TAB PO SCH ×2 (05:15→17:30)
[2018-11-01] MEDS: LACTULOSE 30ML CUP PO SCH ×3 (05:16→21:17)
[2018-11-01] MEDS ORDERED: DIPHENHYDRAMINE 50 MG CAP PO ONE (05:30)
[2018-11-01 07:56] VITALS: BP 84/49; PULSE 67; RESP 19
[2018-11-01] MEDS: FAMOTIDINE 20 MG TAB PO SCH (08:26)
[2018-11-01] MEDS: RIFAXIMIN 550 MG TAB PO SCH ×2 (08:26→21:17)
[2018-11-01] MEDS: FLUOXETINE 20 MG CAP PO SCH (08:26)
[2018-11-01] MEDS: NADOLOL 40 MG TAB PO SCH (08:26)
[2018-11-01] MEDS: THIAMINE 100 MG TAB PO SCH (08:26)
[2018-11-01] MEDS: FUROSEMIDE 40 MG TAB PO SCH (08:26)
[2018-11-01] MEDS: INSULIN GLARGINE [LANTus] (100 UNITS/ML) SYG SC SCH (08:29)
[2018-11-01] MEDS: INSULIN ASPART [NOVOLOG] 3 ML PEN SC SCH ×7 (08:30→21:19)
--- NOTE | 2018-11-01 12:42 | PN ---
Date/Time of Note Date/Time of Note DATE: 11/01/18 TIME: 12:38 Assessment/Plan VTE Prophylaxis Risk score (from Ns)>0 risk: 3 SCD applied (from Ns): Yes Pharmacological prophylaxis: NA/contraindicated Pharm contraindication: anticoag not tolerated Lines/Catheters IV C[facility] Type (from [facility] Mid Line Urinary Cath still in place: No Assessment/Plan Hospital Course SUBJECTIVE:no acute episodes. OBJECTIVE: Vital signs-see below PHYSICAL EXAM: Constitutional: Morbidly obese female,not in acute distress. HEENT: Head atraumatic and normocephalic. Eyes: Extraocular muscles intact. Anicteric sclerae. Pupils equal bilaterally, reactive to light. NECK: Supple without lymph node. CHEST: Coarse breath sounds w/mild expiratory wheeze greater on right side. HEART: S1, S2. Regular rate and rhythm. ABDOMEN: Tenderness to all 4 quadrants, no rebound tenderness. Bowel sounds were present. EXTREMITIES: non-pitting edema bilateral lower extremities-improved. Chronic venous stasis changes appreciated. No cyanosis or clubbing appreciated. NEUROLOGIC: Alert and oriented x3. No focal deficit. No sensory deficit. PSYCHOSOCIAL: No signs of depression. INTEGUMENTARY: No open wounds. ASSESSMENT AND PLAN:58-year-old morbidly obese homeless female with a history of untreated hepatitis C, liver cirrhosis/ascites with history of paracentesis, thrombocytopenia, pleural effusion with history of thoracentesis,dm2, anemia,meth abuse and noncompliance here with worsening shortness of breath/ confusion, abdominal pain,incontinence, nonbloody diarrhea x2 days duration... Sepsis -Most suspect source: Intra-abdominal/respiratory -Resolved. Cultures negative. Nonbloody diarrhea/abdominal pain,likely gastroenteritis -resolved -infectious diarrhea ruled out. Acute on chronic toxic encephalopathy w/hyperammonemia. -Mentation back to normal. -cont. lactulose/ rifaximin. -cessation of substance abuse Community acquired pneumonia -Clinically stable -treated w/abx R pleural effusion -stable and appears to be a chronic problem and was ruled out for malignancy with previous admissions -Continue diuretics Untreated hepatitis C -GI follow-up Liver cirrhosis w/sequela of splenomegaly/thrombocytopenia/portal HTN - Secondary to hepatitis C and alcohol. - cont lasix, spironolactone,Corgard - Ammonia detoxicant DMII/non compliance w/diet - now stable - basal/bolus -strict carb control diet Untreated hepatitis C -Outpatient GI follow-up Cholelithiasis without cholecystitis -monitor Chronic lymphedema -Improved significantly -cont.elevation of affected extremities Chronic anemia -Stable H&H. Monitor. Homelessness/Meth abuse -no SNF accepting pt 2/2 noncompliance/homelessness/previous AMA -GILLIAN f/u Morbid obesity with BMI 41.6. -Lifestyle changes advised. Noncompliance -Counselled Major depressive disorders -Appreciate psych recommendations, on medications. DVT prophylaxis: SCDs, chemical anti-correlation contraindicated with abnormal liver function/coagulopathies. PUD prophylaxis: Pepcid Dispo: Homeless requires recup centers/bridge facilities.GILLIAN working on case. DC IV ACCESS ON DC Patient was seen in collaboration with Result Diagram: 10/28/18 0503 10/29/18 0713 Results 24hrs Laboratory Tests Test 10/31/18 17:29 10/31/18 22:23 11/01/18 01:27 11/01/18 08:24 Bedside Glucose 388 H 230 H 221 H 205 Test 11/01/18 12:27 Bedside Glucose 119 Exam/Review of Systems Exam Vitals Vital Signs Date Temp Pulse Resp B/P (MAP) Pulse Ox O2 O2 Flow FiO2 Time Delivery Rate 11/01/18 97.6 67 19 84/49 (61) 91 07:56 10/31/18 2.0 18:47 10/31/18 Room Air 14:13 Intake and Output 10/31/18 10/31/18 11/01/18 1414:59 22:59 06:59 IntakeIntake Total 1060 ml 580 ml BalanceBalance 1060 ml 580 ml Results Results 24hrs Laboratory Tests Test 10/31/18 17:29 10/31/18 22:23 11/01/18 01:27 11/01/18 08:24 Bedside Glucose 388 H 230 H 221 H 205 Test 11/01/18 12:27 Bedside Glucose 119 Medications Medication Current Medications Albuterol/ Ipratropium (Duoneb) 3 ml Q2H RESP THERAPY PRN HHN SHORTNESS OF BREATH; Start 10/23/18 at 07:30 IV Flush (NS 3 ml) 3 ml PER PROTOCOL IV ; Start 10/23/18 at 09:30 Acetaminophen (Tylenol Tab) 650 mg Q8H PRN PO .PAIN 1-3 OR TEMP Last administered on 10/23/18at 17:04; Admin Dose 650 MG; Start 10/23/18 at 09:30 Diagnostic Test (Pha) (Accu-Chek) 1 ea 02 XX Last administered on 11/01/18at 01:38; Admin Dose 1 EA; Start 10/24/18 at 02:00 Insulin Aspart (Novolog Insulin Pen) NOVOLOG *MILD* ALGORITHM WITH MEALS BEDTIME SC Last administered on 11/01/18 08:30; Admin Dose 2 UNIT; Start 10/23/18 at 12:00 Miscellaneous Information 1 ea NOTE XX ; Start 10/23/18 at 09:30 Glucose (Glutose) 15 gm Q15M PRN PO DECREASED GLUCOSE; Start 10/23/18 at 09:30 Glucose (Glutose) 22.5 gm Q15M PRN PO DECREASED GLUCOSE; Start 10/23/18 at 09:30 Dextrose (D50w Syringe) 25 ml Q15M PRN IV DECREASED GLUCOSE; Start 10/23/18 at 09:30 Dextrose (D50w Syringe) 50 ml Q15M PRN IV DECREASED GLUCOSE; Start 10/23/18 at 09:30 Glucagon (Glucagen) 1 mg Q15M PRN IM DECREASED GLUCOSE; Start 10/23/18 at 09:30 Glucose (Glutose) 15 gm Q15M PRN BUCCAL DECREASED GLUCOSE; Start 10/23/18 at 09:30 Rifaximin (Xifaxan) 550 mg BID PO Last administered on 11/01/18at 08:26; Admin Dose 550 MG; Start 10/23/18 at 21:00 Spironolactone (Aldactone) 50 mg BID DIURETICS PO Last administered on 11/01/18at 05:15; Admin Dose 50 MG; Start 10/23/18 at 11:00 Tramadol HCl (Ultram) 50 mg Q6H PRN PO MODERATE PAIN LEVEL 4-6 Last administered on 10/31/18 22:25; Admin Dose 50 MG; Start 10/24/18 at 00:00 Lactulose (Enulose) 20 gm Q8 PO Last administered on 10/31/18at 13:12; Admin Dose 20 GM; Start 10/24/18 at 14:00 Thiamine HCl (Vitamin B1) 100 mg DAILY PO Last administered on 11/01/18 08:26; Admin Dose 100 MG; Start 10/24/18 at 13:00; Stop 11/03/18 at 12:59 Fluoxetine HCl (Prozac) 20 mg DAILY PO Last administered on 11/01/18 08:26; Admin Dose 20 MG; Start 10/24/18 at 13:00 Zolpidem Tartrate (Ambien) 5 mg HS PRN PO INSOMNIA Last administered on 10/31/18 00:05; Admin Dose 5 MG; Start 10/24/18 at 13:00 Furosemide (Lasix) 40 mg DAILY PO Last administered on 10/31/18 08:21; Admin Dose 40 MG; Start 10/25/18 at 09:30 Famotidine (Pepcid) 20 mg DAILY PO Last administered on 11/01/18 08:26; Admin Dose 20 MG; Start 10/25/18 at 09:30 Nadolol (Corgard) 40 mg DAILY PO Last administered on 10/31/18 08:18; Admin Dose 40 MG; Start 10/26/18 at 11:20 Levofloxacin (Levaquin) 500 mg DAILY@06 PO Last administered on 11/01/18 05:15; Admin Dose 500 MG; Start 10/27/18 at 15:30; Stop 11/01/18 at 15:29 Insulin Aspart (Novolog Insulin Pen) 10 unit WITH MEALS SC Last administered on 11/01/18 12:30; Admin Dose 10 UNIT; Start 10/31/18 at 18:00 Insulin Glargine (Lantus) 30 units DAILY@0800 SC Last administered on 11/01/18 08:29; Admin Dose 30 UNITS; Start 11/01/18 at 08:00 Ondansetron HCl (Zofran Inj) 4 mg Q4H PRN IV NAUSEA/VOMITING Last administered on 11/01/18 01:45; Admin Dose 4 MG; Start 11/01/18 at 02:00 CAT MARTÍNEZ NP November 01, 2018 12:42
[2018-11-01 15:02] VITALS: BP 93/46; PULSE 61; RESP 16
[2018-11-01 19:41] VITALS: BP 112/78; PULSE 68; RESP 18
[2018-11-01] MEDS: ZOLPIDEM 5 MG TAB PO PRN (21:17)
[2018-11-01] MEDS: CYCLOBENZAPRINE 10 MG TAB PO PRN (21:17)
[2018-11-01] MEDS: traMADol 50 MG TAB PO PRN (21:27)
[2018-11-02 01:50] VITALS: BP 116/74; PULSE 72; RESP 18
[2018-11-02] MEDS: ACCU-CHEK XX SCH (02:06)
[2018-11-02] MEDS: LACTULOSE 30ML CUP PO SCH ×3 (06:00→20:59)
[2018-11-02] MEDS: SPIRONOLACTONE 50 MG TAB PO SCH ×2 (06:32→17:28)
[2018-11-02 07:54] VITALS: BP 98/47; PULSE 75; RESP 17
[2018-11-02] MEDS: FUROSEMIDE 40 MG TAB PO SCH (09:00)
[2018-11-02] MEDS: FAMOTIDINE 20 MG TAB PO SCH (09:03)
[2018-11-02] MEDS: THIAMINE 100 MG TAB PO SCH (09:04)
[2018-11-02] MEDS: NADOLOL 40 MG TAB PO SCH (09:04)
[2018-11-02] MEDS: FLUOXETINE 20 MG CAP PO SCH (09:04)
[2018-11-02] MEDS: RIFAXIMIN 550 MG TAB PO SCH ×2 (09:04→20:59)
[2018-11-02] MEDS: INSULIN ASPART [NOVOLOG] 3 ML PEN SC SCH ×7 (09:06→20:54)
[2018-11-02] MEDS: INSULIN GLARGINE [LANTus] (100 UNITS/ML) SYG SC SCH (09:07)
[2018-11-02 14:48] VITALS: BP 117/70; PULSE 82; RESP 18
[2018-11-02] MEDS: traMADol 50 MG TAB PO PRN (16:51)
[2018-11-02 20:45] VITALS: BP 120/69; PULSE 64; RESP 18
[2018-11-02] MEDS: ZOLPIDEM 5 MG TAB PO PRN (21:03)
[2018-11-03] MEDS: ACCU-CHEK XX SCH (01:12)
[2018-11-03 02:06] VITALS: BP 112/67; PULSE 64; RESP 18
[2018-11-03] MEDS: LACTULOSE 30ML CUP PO SCH ×3 (05:37→21:00)
[2018-11-03] MEDS: SPIRONOLACTONE 50 MG TAB PO SCH ×2 (05:37→17:29)
[2018-11-03 07:46] VITALS: BP 101/62; PULSE 65; RESP 18
[2018-11-03] MEDS: RIFAXIMIN 550 MG TAB PO SCH ×2 (08:23→20:44)
[2018-11-03] MEDS: FAMOTIDINE 20 MG TAB PO SCH (08:24)
[2018-11-03] MEDS: THIAMINE 100 MG TAB PO SCH (08:24)
[2018-11-03] MEDS: FLUOXETINE 20 MG CAP PO SCH (08:24)
[2018-11-03] MEDS: NADOLOL 40 MG TAB PO SCH (08:25)
[2018-11-03] MEDS: FUROSEMIDE 40 MG TAB PO SCH (08:25)
[2018-11-03] MEDS: INSULIN GLARGINE [LANTus] (100 UNITS/ML) SYG SC SCH (08:27)
[2018-11-03] MEDS: INSULIN ASPART [NOVOLOG] 3 ML PEN SC SCH ×7 (08:29→20:43)
--- NOTE | 2018-11-03 11:23 | PN ---
Date/Time of Note Date/Time of Note DATE: 11/03/18 TIME: 11:21 Assessment/Plan VTE Prophylaxis Risk score (from Ns)>0 risk: 2 SCD applied (from Ns): No SCD contraindicated: other Pharmacological prophylaxis: NA/contraindicated Pharm contraindication: low risk/ambulating Lines/Catheters [facility] C[facility] Type [facility] Mid Line Urinary Cath still in place: No Assessment/Plan Hospital Course SUBJECTIVE:no acute episodes. OBJECTIVE: Vital signs-see below PHYSICAL EXAM: Constitutional: Morbidly obese female,not in acute distress. HEENT: Head atraumatic and normocephalic. Eyes: Extraocular muscles intact. Anicteric sclerae. Pupils equal bilaterally, reactive to light. NECK: Supple without lymph node. CHEST: Coarse breath sounds w/mild expiratory wheeze greater on right side. HEART: S1, S2. Regular rate and rhythm. ABDOMEN: Tenderness to all 4 quadrants, no rebound tenderness. Bowel sounds were present. EXTREMITIES: non-pitting edema bilateral lower extremities-improved. Chronic venous stasis changes appreciated. No cyanosis or clubbing appreciated. NEUROLOGIC: Alert and oriented x3. No focal deficit. No sensory deficit. PSYCHOSOCIAL: No signs of depression. INTEGUMENTARY: No open wounds. ASSESSMENT AND PLAN:58-year-old morbidly obese homeless female with a history of untreated hepatitis C, liver cirrhosis/ascites with history of paracentesis, thrombocytopenia, pleural effusion with history of thoracentesis,dm2, anemia,meth abuse and noncompliance here with worsening shortness of breath/ confusion, abdominal pain,incontinence, nonbloody diarrhea x2 days duration... Sepsis -Most suspect source: Intra-abdominal/respiratory -Resolved. Cultures negative. Nonbloody diarrhea/abdominal pain,likely gastroenteritis -resolved -infectious diarrhea ruled out. Acute on chronic toxic encephalopathy w/hyperammonemia. -Mentation back to normal. -cont. lactulose/ rifaximin. -cessation of substance abuse Community acquired pneumonia -Clinically stable -treated w/abx R pleural effusion -stable and appears to be a chronic problem and was ruled out for malignancy with previous admissions -Continue diuretics Untreated hepatitis C -GI follow-up Liver cirrhosis w/sequela of splenomegaly/thrombocytopenia/portal HTN - Secondary to hepatitis C and alcohol. - cont lasix, spironolactone,Corgard - Ammonia detoxicant DMII/non compliance w/diet - stable glycemic control - basal/bolus -strict carb control diet Untreated hepatitis C -Outpatient GI follow-up Cholelithiasis without cholecystitis -monitor Chronic lymphedema -Improved significantly -cont.elevation of affected extremities Chronic anemia -Stable H&H. Monitor. Homelessness/Meth abuse -no SNF accepting pt 2/2 noncompliance/homelessness/previous AMA -GILLIAN f/u Morbid obesity with BMI 41.6. -Lifestyle changes advised. Noncompliance -Counselled Major depressive disorders -Appreciate psych recommendations, on medications. DVT prophylaxis: SCDs/ambulation PUD prophylaxis: Pepcid Dispo: Homeless requires recup centers/bridge facilities.GILLIAN working on case. DC IV ACCESS ON DC Patient was seen in collaboration with Results 24hrs Laboratory Tests Test 11/02/18 12:40 11/02/18 17:09 11/02/18 20:51 11/03/18 08:21 Bedside Glucose 146 186 143 147 Exam/Review of Systems Exam Vitals Vital Signs Date Temp Pulse Resp B/P (MAP) Pulse Ox O2 O2 Flow FiO2 Time Delivery Rate 11/03/18 98.4 65 18 101/62 94 Room Air 07:46 (75) 10/31/18 2.0 18:47 Intake and Output 11/02/18 11/02/18 11/03/18 1515:00 23:00 07:00 IntakeIntake Total 650 ml 625 ml 125 ml BalanceBalance 650 ml 625 ml 125 ml Results Results 24hrs Laboratory Tests Test 11/02/18 12:40 11/02/18 17:09 11/02/18 20:51 11/03/18 08:21 Bedside Glucose 146 186 143 147 Medications Medication Current Medications Albuterol/ Ipratropium (Duoneb) 3 ml Q2H RESP THERAPY PRN HHN SHORTNESS OF BREATH; Start 10/23/18 at 07:30 IV Flush (NS 3 ml) 3 ml PER PROTOCOL IV ; Start 10/23/18 at 09:30 Acetaminophen (Tylenol Tab) 650 mg Q8H PRN PO .PAIN 1-3 OR TEMP Last administered on 10/23/18at 17:04; Admin Dose 650 MG; Start 10/23/18 at 09:30 Diagnostic Test (Pha) (Accu-Chek) 1 ea 02 XX Last administered on 11/02/18at 02:06; Admin Dose 1 EA; Start 10/24/18 at 02:00 Insulin Aspart (Novolog Insulin Pen) NOVOLOG *MILD* ALGORITHM WITH MEALS BEDTIME SC Last administered on 11/03/18at 08:29; Admin Dose 1 UNIT; Start 10/23/18 at 12:00 Miscellaneous Information 1 ea NOTE XX ; Start 10/23/18 at 09:30 Glucose (Glutose) 15 gm Q15M PRN PO DECREASED GLUCOSE; Start 10/23/18 at 09:30 Glucose (Glutose) 22.5 gm Q15M PRN PO DECREASED GLUCOSE; Start 10/23/18 at 09:30 Dextrose (D50w Syringe) 25 ml Q15M PRN IV DECREASED GLUCOSE; Start 10/23/18 at 09:30 Dextrose (D50w Syringe) 50 ml Q15M PRN IV DECREASED GLUCOSE; Start 10/23/18 at 09:30 Glucagon (Glucagen) 1 mg Q15M PRN IM DECREASED GLUCOSE; Start 10/23/18 at 09:30 Glucose (Glutose) 15 gm Q15M PRN BUCCAL DECREASED GLUCOSE; Start 10/23/18 at 09:30 Rifaximin (Xifaxan) 550 mg BID PO Last administered on 11/03/18at 08:23; Admin Dose 550 MG; Start 10/23/18 at 21:00 Spironolactone (Aldactone) 50 mg BID DIURETICS PO Last administered on 11/03/18at 05:37; Admin Dose 50 MG; Start 10/23/18 at 11:00 Tramadol HCl (Ultram) 50 mg Q6H PRN PO MODERATE PAIN LEVEL 4-6 Last administered on 11/02/18at 16:51; Admin Dose 50 MG; Start 10/24/18 at 00:00 Lactulose (Enulose) 20 gm Q8 PO Last administered on 11/03/18at 05:37; Admin Dose 20 GM; Start 10/24/18 at 14:00 Thiamine HCl (Vitamin B1) 100 mg DAILY PO Last administered on 11/03/18 08:24; Admin Dose 100 MG; Start 10/24/18 at 13:00; Stop 11/03/18 at 12:59 Fluoxetine HCl (Prozac) 20 mg DAILY PO Last administered on 5/20/19at 08:24; Admin Dose 20 MG; Start 10/24/18 at 13:00 Zolpidem Tartrate (Ambien) 5 mg HS PRN PO INSOMNIA Last administered on 11/02/18 21:03; Admin Dose 5 MG; Start 10/24/18 at 13:00 Furosemide (Lasix) 40 mg DAILY PO Last administered on 11/03/18 08:25; Admin Dose 40 MG; Start 10/25/18 at 09:30 Famotidine (Pepcid) 20 mg DAILY PO Last administered on 11/03/18 08:24; Admin Dose 20 MG; Start 10/25/18 at 09:30 Nadolol (Corgard) 40 mg DAILY PO Last administered on 11/03/18 08:25; Admin Dose 40 MG; Start 10/26/18 at 11:20 Insulin Aspart (Novolog Insulin Pen) 10 unit WITH MEALS SC Last administered on 11/03/18 08:32; Admin Dose 10 UNIT; Start 10/31/18 at 18:00 Insulin Glargine (Lantus) 30 units DAILY@0800 SC Last administered on 11/03/18 08:27; Admin Dose 30 UNITS; Start 11/01/18 at 08:00 Ondansetron HCl (Zofran Inj) 4 mg Q4H PRN IV NAUSEA/VOMITING Last administered on 11/01/18at 01:45; Admin Dose 4 MG; Start 11/01/18 at 02:00 Cyclobenzaprine HCl (Flexeril) 5 mg QHS PRN PO MUSCLE SPASMS Last administered on 11/01/18 21:17; Admin Dose 5 MG; Start 11/01/18 at 20:00 CAT MARTÍNEZ NP November 03, 2018 11:23
[2018-11-03 14:05] VITALS: BP 111/60; PULSE 58; RESP 16
[2018-11-03] MEDS: traMADol 50 MG TAB PO PRN (14:29)
[2018-11-03 19:50] VITALS: BP 122/59; PULSE 94; RESP 19
[2018-11-03] MEDS: ZOLPIDEM 5 MG TAB PO PRN (20:45)
[2018-11-03] MEDS: CYCLOBENZAPRINE 10 MG TAB PO PRN (20:46)
[2018-11-04] MEDS: ACCU-CHEK XX SCH (01:37)
[2018-11-04] MEDS: traMADol 50 MG TAB PO PRN ×2 (01:37→09:28)
[2018-11-04 02:00] VITALS: BP 107/62; PULSE 70; RESP 18
[2018-11-04] MEDS: SPIRONOLACTONE 50 MG TAB PO SCH (05:45)
[2018-11-04] MEDS: LACTULOSE 30ML CUP PO SCH (05:45)
[2018-11-04 07:30] VITALS: BP 115/67; PULSE 67; RESP 18
[2018-11-04] MEDS: INSULIN GLARGINE [LANTus] (100 UNITS/ML) SYG SC SCH (08:17)
[2018-11-04] MEDS: INSULIN ASPART [NOVOLOG] 3 ML PEN SC SCH ×4 (08:18→12:09)
[2018-11-04] MEDS: FAMOTIDINE 20 MG TAB PO SCH (09:27)
[2018-11-04] MEDS: FUROSEMIDE 40 MG TAB PO SCH (09:27)
[2018-11-04] MEDS: NADOLOL 40 MG TAB PO SCH (09:28)
[2018-11-04] MEDS: RIFAXIMIN 550 MG TAB PO SCH (09:28)
[2018-11-04] MEDS: FLUOXETINE 20 MG CAP PO SCH (09:28)
--- NOTE | 2018-11-04 11:47 | DS ---
Date/Time of Note Date/Time of Note DATE: 11/04/18 TIME: 11:42 Discharge Summary Admission/Discharge Info Admit Date/Time October 23, 2018 at 04:44 Discharge Date/Time Discharge Diagnosis S/P Sepsis -Most suspect source: Intra-abdominal/respiratory s/p Gastroenteritis Acute on chronic toxic encephalopathy w/hyperammonemia. resolved Community acquired pneumonia.treated R pleural effusion -stable and appears to be a chronic problem and was ruled out for malignancy with previous admissions Liver cirrhosis w/sequela of splenomegaly/thrombocytopenia/portal HTN - Secondary to hepatitis C and alcohol. DMII/non compliance w/diet Untreated hepatitis C Cholelithiasis without cholecystitis Chronic lymphedema Chronic anemia Homelessness/Meth abuse Morbid obesity with BMI 41.6. Noncompliance Major depressive disorders Patient Condition: Stable Consults Procedures EGD 10/27/2018 No esophageal varices Portal hypertensive gastropathy Gastric erosions/gastritis Hx of Present Illness This is a 58-year-old morbidly obese homeless female with a history of untreated hepatitis C, liver cirrhosis/ascites with history of paracentesis, thrombocytopenia, pleural effusion with history of thoracentesis,dm2, anemia, here with worsening shortness of breath, incontinence, nonbloody diarrhea x2 days duration. She also admitted to generalized abdominal pain. She has been also feeling more confused and altered recently. Patient was recently discharged from [facility] after she was treated for UTI and was sent to a retirement where she went AMA back to streets. Patient denied fever, chills. Patient denied chest pain, palpitation, nausea, vomiting, dizziness, headache, loss of consciousness, or other constitutional symptoms. In the emergency room, patient was noted with initial lactic acid 4.1, blood sugar 466, abnormal liver function test, hemoglobin 11.6, hematocrit 36.4 and platelets 77. Vital signs with tachycardia with pulse rate 123, blood pressure 161/93 which then dropped to 87/42. Stable oxygen saturation. A CAT scan of the abdomen and pelvis without contrast showed cirrhosis with splenomegaly, calcified gallstones with mild gallbladder wall thickening, right pleural effu josh with basilar consolidation. Patient was given Zosyn in the emergency room, IV fluid bolus and admitted for further evaluation. Hospital Course 58-year-old morbidly obese homeless female with a history of untreated hepatitis C, liver cirrhosis/ascites with history of paracentesis, thrombocytopenia, pleural effusion with history of thoracentesis,dm2, anemia,meth abuse and noncompliance here with worsening shortness of breath/ confusion, abdominal pain,incontinence, nonbloody diarrhea x2 days duration... Known to have sepsis. Sepsis was likely contributed by community-acquired pneumonia as well as possible gastroenteritis. Infectious diarrhea was ruled out. Patient did well. He was able to tolerate diet. Patient was also treated for acute on chronic toxic encephalopathy with hyperammonia with lactulose and rifaximin. She also underwent EGD on 10/27/2018 with no evidence of esophageal varices. There was evidence of portal hypertensive gastropathy for which she was continued on non selective beta-blockers. Patient was also noted with chronic gastritis. She was counseled on cessation of alcohol. She was counseled on following up with property loss insurance claim adjuster for untreated hepatitis C after discharge. Patient was continued on Lasix/Aldactone/Corgard for underlying Liver cirrhosis w/sequela of splenomegaly/thrombocytopenia/portal HTN. She was instructed on diabetes management. She was continued on insulin regimen with optimal glycemic control. At this time, patient is feeling back to baseline. Her swelling on bilateral lower extremity has resolved. She did not have any further abdominal symptoms. She was seen by physical therapy and was able to walk with assistance of walker. Patient remained alert and oriented. Encephalopathy resolved. There is no further inpatient work-up indicated. She was also seen by psych and was started on medication for major depressive disorders. Patient was then followed up with our bilingual social worker in light of her alcohol abuse, meth abuse and homelessness. On 11/04/2018, patient was accepted to a recuperative center where she will also get medication assistance. Patient is very thankful for the hospital service and she understood instructions clearly. Approximately 60 m spent on coordinating the discharge on this patient. Patient was seen in collaboration with Dr. Gamez. Home Meds Active Scripts Lactulose* (Lactulose*) 20 Gm/30 Ml Solution, 20 GM PO BID for 30 Days Prov:MARTÍNEZ,CAT V. TELEGRAPHIC TYPEWRITER MECHANIC 10/29/18 Furosemide* (Furosemide*) 40 Mg Tablet, 40 MG PO DAILY, #30 TAB Prov:MARTÍNEZ,CAT V. TELEGRAPHIC TYPEWRITER MECHANIC 10/29/18 Metformin* (Glucophage*) 500 Mg Tab, 500 MG PO WITH BREAKFAST DINNE, #60 TAB Prov:MARTÍNEZ,CAT V. TELEGRAPHIC TYPEWRITER MECHANIC 10/29/18 Glipizide* (Glipizide*) 5 Mg Tablet, 2.5 MG PO AC BREAKFAST, #30 TAB Prov:MARTÍNEZ,CAT V. TELEGRAPHIC TYPEWRITER MECHANIC 10/29/18 Thiamine* (Vitamin B-1*) 100 Mg Tablet, 100 MG PO DAILY, #30 TAB Prov:MARTÍNEZ,CAT V. TELEGRAPHIC TYPEWRITER MECHANIC 10/29/18 Fluoxetine Hcl* (Fluoxetine Hcl*) 20 Mg Capsule, 20 MG PO DAILY, #30 CAP Prov:MARTÍNEZ,CAT V. TELEGRAPHIC TYPEWRITER MECHANIC 10/29/18 Nadolol (Corgard) 40 Mg Tablet, 40 MG PO DAILY, #30 TAB Prov:MARTÍNEZ,CAT V. TELEGRAPHIC TYPEWRITER MECHANIC 10/29/18 Spironolactone* (Aldactone*) 50 Mg Tablet, 50 MG PO BID DIURETICS, #60 TAB Prov:MARTÍNEZ,CAT V. TELEGRAPHIC TYPEWRITER MECHANIC 10/29/18 Follow-up Plan FOLLOW UP OUTPATIENT SECURITY TEST ENGINEER FOR UNTREATED HEP C. CALL 'S OFFICE FOR APPOINTMENT INFORMATION Coral Steven MD Specialty Gastroenterology Comments Office Address [id number] [place] [id number] Office Primary Care Provider Enrique Nickerson MD Pending Labs Laboratory Tests Test 11/03/18 12:32 11/03/18 17:24 11/03/18 20:37 11/04/18 01:33 Bedside 230 230 239 180 Glucose mg/dL (70-220) mg/dL (70-220) mg/dL (70-220) mg/dL (70-220) Test 11/04/18 08:15 Bedside 153 Glucose mg/dL (70-220) CAT MARTÍNEZ V. TELEGRAPHIC TYPEWRITER MECHANIC November 04, 2018 11:47
--- NOTE | 2018-11-05 10:36 | PN ---
Date/Time of Note Date/Time of Note LATE NOTE ON 11/02/2018 DATE: 11/05/18 TIME: 10:31 Assessment/Plan VTE Prophylaxis Risk score (from Ns)>0 risk: 1 SCD applied (from Nsg): Yes Pharmacological prophylaxis: NA/contraindicated Pharm contraindication: low risk/ambulating Lines/Catheters IV [facility] Mid Line Urinary Cath still in place: No Assessment/Plan Hospital Course SUBJECTIVE:no acute episodes. OBJECTIVE: Vital signs-see below PHYSICAL EXAM: Constitutional: Morbidly obese female,not in acute distress. HEENT: Head atraumatic and normocephalic. Eyes: Extraocular muscles intact. Anicteric sclerae. Pupils equal bilaterally, reactive to light. NECK: Supple without lymph node. CHEST: Coarse breath sounds w/mild expiratory wheeze greater on right side. HEART: S1, S2. Regular rate and rhythm. ABDOMEN: Tenderness to all 4 quadrants, no rebound tenderness. Bowel sounds were present. EXTREMITIES: non-pitting edema bilateral lower extremities-improved. Chronic venous stasis changes appreciated. No cyanosis or clubbing appreciated. NEUROLOGIC: Alert and oriented x3. No focal deficit. No sensory deficit. PSYCHOSOCIAL: No signs of depression. INTEGUMENTARY: No open wounds. LATE NOTE ON 11/02/2018 ASSESSMENT AND PLAN:58-year-old morbidly obese homeless female with a history of untreated hepatitis C, liver cirrhosis/ascites with history of paracentesis, thrombocytopenia, pleural effusion with history of thoracentesis,dm2, anemia,meth abuse and noncompliance here with worsening shortness of breath/ confusion, abdominal pain,incontinence, nonbloody diarrhea x2 days duration... Sepsis -Most suspect source: Intra-abdominal/respiratory -Resolved. Cultures negative. Nonbloody diarrhea/abdominal pain,likely gastroenteritis -resolved -infectious diarrhea ruled out. Acute on chronic toxic encephalopathy w/hyperammonemia. -Mentation back to normal. -cont. lactulose/ rifaximin. -cessation of substance abuse Community acquired pneumonia -Clinically stable -treated w/abx R pleural effusion -stable and appears to be a chronic problem and was ruled out for malignancy with previous admissions -Continue diuretics Untreated hepatitis C -GI follow-up Liver cirrhosis w/sequela of splenomegaly/thrombocytopenia/portal HTN - Secondary to hepatitis C and alcohol. - cont lasix, spironolactone,Corgard - Ammonia detoxicant DMII/non compliance w/diet - now stable - basal/bolus - strict carb control diet Untreated hepatitis C -Outpatient GI follow-up Cholelithiasis without cholecystitis -monitor Chronic lymphedema -Improved significantly -cont.elevation of affected extremities Chronic anemia -Stable H&H. Monitor. Homelessness/Meth abuse -no SNF accepting pt 2/2 noncompliance/homelessness/previous AMA - f/u Morbid obesity with BMI 41.6. -Lifestyle changes advised. Noncompliance -Counselled Major depressive disorders -Appreciate psych recommendations, on medications. DVT prophylaxis: SCDs, chemical anti-correlation contraindicated with abnormal liver function/coagulopathies. PUD prophylaxis: Pepcid Dispo: Homeless requires recup centers/bridge facilities.GILLIAN working on case. DC IV ACCESS ON DC Patient was seen in collaboration with Results 24hrs Laboratory Tests Test 11/04/18 12:06 Bedside Glucose 128 Exam/Review of Systems Exam Vitals Vital Signs Date Temp Pulse Resp B/P (MAP) Pulse Ox O2 O2 Flow FiO2 Time Delivery Rate 11/04/18 98.1 67 18 115/67 92 Room Air 07:30 (83) Intake and Output 11/04/18 11/04/18 11/05/18 1515:00 23:00 07:00 IntakeIntake Total 1660 ml BalanceBalance 1660 ml Results Results 24hrs Laboratory Tests Test 11/04/18 12:06 Bedside Glucose 128 CAT MARTÍNEZ NP November 05, 2018 10:36
== END 2018-11-04 13:40 | disposition home or self-care (01) | DRG 871 ==
LOC: E/R 22:40 → 2NE 10-23 04:44 → 5EC 10-23 18:30
PROVIDERS: ADMIT Internal Medicine; ATTEND Internal Medicine
PROC: 0DJ08ZZ Inspection of Upper Intestinal Tract, Via Natural or Artificial Opening Endoscopic (ICD-10-PCS; principal; 2018-10-27 15:00)
DX: A41.9 Sepsis, unspecified organism (principal); G92 Toxic encephalopathy; J18.9 Pneumonia, unspecified organism; K76.6 Portal hypertension; Z68.41 Body mass index [BMI] 40.0-44.9, adult; D68.9 Coagulation defect, unspecified; F33.2 Major depressive disorder, recurrent severe without psychotic features; J91.8 Pleural effusion in other conditions classified elsewhere; D69.6 Thrombocytopenia, unspecified; J44.9 Chronic obstructive pulmonary disease, unspecified; B18.2 Chronic viral hepatitis C; F17.200 Nicotine dependence, unspecified, uncomplicated; K31.89 Other diseases of stomach and duodenum; K25.9 Gastric ulcer, unspecified as acute or chronic, without hemorrhage or perforation; E66.01 Morbid (severe) obesity due to excess calories; K70.30 Alcoholic cirrhosis of liver without ascites; E11.65 Type 2 diabetes mellitus with hyperglycemia; K80.20 Calculus of gallbladder without cholecystitis without obstruction; I89.0 Lymphedema, not elsewhere classified; D64.9 Anemia, unspecified; Z59.0 Homelessness; Z71.3 Dietary counseling and surveillance; R16.1 Splenomegaly, not elsewhere classified; F15.10 Other stimulant abuse, uncomplicated; K05.00 Acute gingivitis, plaque induced; K29.50 Unspecified chronic gastritis without bleeding; K52.9 Noninfective gastroenteritis and colitis, unspecified; Z91.11 Patient's noncompliance with dietary regimen; Z87.440 Personal history of urinary (tract) infections
CPT/HCPCS: 36415; 71045; 74176; 76604; 76705; 78226; 80048; 80053; 80307; 81001; 82140; 82962; 83036; 83605; 83735; 84100; 84484; 85025; 85610; 85730; 86704; 86803; 87045; 87075; 87086; 87177; 87340; 87522; 93005; 93970; 94664; 96374; 96375; 97116; 97161; 97530; A9537; J1815; J1885; J1940; J2001; J2270; J2405; J2543; J3010; J3475; J7030

== ENCOUNTER 2018-11-13 13:27 | Emergency (ER) | payer OTHER ==
[~2018-11-13] VITALS: Ht 167.6 cm; Wt 80.0 kg
[~2018-11-13 13:27] MED LIST changes: +FLUO20CA22 PO; +FURO40TA4 PO; +GLIP5TAB13 PO; -HYDR-4011 PO; +LACT20SO2 PO; +METF-849 PO; +NADO40TA18 PO; -PANT40TA3 PO; -SERT100T PO; -SPIR100T PO; +SPIR50TA PO; +THIA100T56 PO
[2018-11-13] MEDS ORDERED: KETOROLAC 15 MG INJ IV STA (13:43)
[2018-11-13 13:46] VITALS: Ht 167.6 cm; Wt 80.0 kg
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
[2018-11-13] MEDS ORDERED: DIAZEPAM 5 MG/ML SYG IV ONE (14:00)
[2018-11-13 16:16] VITALS: BP 160/89; PULSE 86; RESP 18
== END 2018-11-13 16:20 | disposition home or self-care (01) ==
LOC: E/R 13:27
DX: M79.661 Pain in right lower leg (principal); F17.210 Nicotine dependence, cigarettes, uncomplicated; M79.662 Pain in left lower leg; M54.2 Cervicalgia; M54.9 Dorsalgia, unspecified; Z79.84 Long term (current) use of oral hypoglycemic drugs; Z76.5 Malingerer [conscious simulation]
CPT/HCPCS: 36415; 80053; 80307; 83690; 85025; 99284; J1885; J3360